=== PATIENT | female | born 1935 | race Caucasian/White ===

== ENCOUNTER → 2017-01-08 | Outpatient (CLI) | payer OTHER, BC | LOC: BMCIMAGING 14:47 | PROVIDERS: ATTEND Nurse Practitioner Adult Health | DX: Z12.31 Encounter for screening mammogram for malignant neoplasm of breast (principal); Z13.820 Encounter for screening for osteoporosis | CPT/HCPCS: G0202 ==

== ENCOUNTER 2017-04-04 20:32 | Inpatient (IN) | payer OTHER, BC ==
[2017-04-04] MEDS ORDERED: IPRATROPIUM/ALBUTEROL 3 ML DEYVIAL IH ONE (21:01)
--- NOTE | 2017-04-04 21:05 | EDPHY ---
H & P Stated Complaint: L shoulder pain, cough, hypoxia HPI/ROS: CHIEF COMPLAINT: Chest pain, shoulder pain, cough HISTORY OF PRESENT ILLNESS: Patient complains of 3 days history of left-sided shoulder and chest pain. This was gradual onset. Constant duration. Moderate to severe. No trauma or injury. No back pain. Associated with cough, shortness of breath or weakness. No headache or dizziness. No syncope. No back pain. No abdominal urinary complaints. Former smoker who wears oxygen at night but not during the day. Time of arrival she was hypoxic on room air at 81%. She was not hypotensive. Worse with exertion and when supine. Minimal improvement rest. No other associated complaints or modifying factors. REVIEW OF SYSTEMS: Ten systems reviewed and are negative unless otherwise noted in the HPI PERTINENT MEDICAL HISTORY: Reviewed EXAMINATION General Appearance: Alert, frail Mildly labored breathing. appears ill. Head: normocephalic, atraumatic Eyes: Pupils equal and round, no conjunctival pallor or injection ENT, Mouth: Mucous membranes moist uvula midline. Neck: Normal inspection, nontender. Kyphotic Respiratory: Coarse rhonchi and mild crackles. Tachypneic with scattered wheezing. No retractions. No paradoxical breathing. No acute distress Cardiovascular: Regular rate and rhythm. No murmur. Gastrointestinal: Abdomen is soft and nontender Back: non-tender, kyphotic. no bony abnormalities Neurological: A&O, nonfocal, GCS 15. Skin: Warm and dry, no rash. No petechiae or purpura Extremities: Nontender, no pedal edema Psychiatric: Mood and affect normal DIFFERENTIAL DIAGNOSES: Including but not limited to sepsis, community-acquired pneumonia, COPD exacerbation, bronchitis, PE, ACS MDM: 9:02 p.m. Left-sided chest and shoulder pain with cough, shortness of breath, hypoxia. Examination is consistent with pneumonia. She does appear ill, thus I did order blood cultures and lactic acid. She is awake, alert and mentating appropriately. She is hemodynamically stable. Patient will require inpatient stay 9:20 p.m. Chest x-ray as interpreted by me reveals a large left-sided pneumonia with possible pleural effusion versus empyema. I have ordered a CT scan of the chest to further delineate and to rule out PE. She does have a leukocytosis. Her hypoxia is stable on 4 L nasal cannula. She does not require BiPAP at this time. 9:30 p.m. case discussed with Dr. Hermosillo. He pointed out the patient's iodine allergy. We will proceed with CT scan without contrast. I re-evaluated her after her breathing treatment. Breath sounds are improving. She remains awake alert and in no acute distress. She is normotensive and not tachycardic. 9:55 p.m. Notified by radiologist Dr. Hermosillo. CT scan reveals left lower lobe and lingula pneumonia. There is an early, thin empyema with loculation 10:15 p.m. I have discussed the case with Dr. Rivera. He will admit the patient and requested a med surge bed on [address]. He informs me that he will discuss the case with Dr. Hermosillo for the possibility of interventional radiology procedure. I discussed that we have started Rocephin and Zithromax and he agrees that this is appropriate at this time. She is admitted in stable condition. 10:20 p.m. Notified by RN of a change in the patient's oxygenation. She informed me that the patient was 88% on 6 L. She was increased to 10 L Oxymizer. She remained 88-90% with good plethysmography noted. Dr. Brown and I both evaluated her. We discussed BiPAP versus non-rebreather. BiPAP was initially decided upon. However at this time, she actually is oxygenating well on 10 L Oxymizer. She is 94%. Continue to monitor closely. 10:44 p.m. I have discussed the case with Dr. Rivera to notify him of the change in her oxygenation status. He agrees that we should change the bed to Step-Down Unit. This has been done. SUPERVISION: Patient was evaluated in conjunction with the supervising physician. Please see their note for details. Source: Patient, Family Exam Limitations: No limitations - Personal History Current Tetanus/Diphtheria Vaccine: Yes Current Tetanus Diphtheria and Acellular Pertussis (TDAP): Yes Tetanus Vaccine Date: 2008 - Medical/Surgical History Hx Asthma: No Hx Chronic Respiratory Disease: No Hx Diabetes: No Hx Cardiac Disease: No Hx Renal Disease: No Hx Cirrhosis: No Hx Alcoholism: Yes Hx HIV/AIDS: No Hx Splenectomy or Spleen Trauma: No Other PMH: Chronic pain, back pain, hypothyroidism, home O2, hx retroperitoneal fibrosis - Social History Smoking Status: Current every day smoker Constitutional: Initial Vital Signs Temperature (C) 98.2 F 04/04/17 20:42 Heart Rate 85 04/04/17 20:42 Respiratory Rate 24 H 04/04/17 20:42 Blood Pressure 105/76 04/04/17 20:42 O2 Sat (%) 81 L 04/04/17 20:42 O2 Delivery Mode Non-Rebreather Mask O2 (L/minute) 6 Allergies/Adverse Reactions: iodine [Iodine] Allergy (Severe, Verified 04/20/16 05:03) Anaphylaxis Iodinated Contrast Media - Oral and [IV Dye, Iodine Containing Contrast ] Allergy (Unknown, Verified 04/20/16 05:03) Home Medications: Medication Instructions Recorded Baclofen [Baclofen 10 mg (*)] 10 mg PO BID PRN 07/13/12 DULoxetine [Cymbalta 60 MG (*)] 60 mg PO DAILY 05/23/14 Levothyroxine [Synthroid 88 mcg 88 mcg PO DAILY06 05/23/14 (*)] Simvastatin [Zocor 10 mg] 10 mg PO DAILY18 05/23/14 Gabapentin [Neurontin 300 MG (*)] 300 mg PO DAILY 04/20/16 fentaNYL [Duragesic 50 MCG Patch 50 mcg TD Q48H 04/20/16 (*)] Acetaminophen [Tylenol 325mg (*)] 650 mg PO Q4 PRN #0 tab 04/23/16 Medical Decision Making - Diagnostics Imaging Results: Imaging Impressions Chest X-Ray 04/04/17 21:00 Impression: Left lower lobe pneumonia. Chest CT 04/04/17 21:20 Impression: 1. Pneumonia left lower lobe and possible early empyema. Atelectasis or early infiltrate lingula. 2. Atelectasis right middle lobe. Diskoid atelectasis or scarring right lung base. 3. Mild dilatation of the descending thoracic aorta 4.2 cm. Recommend follow-up. Results called and discussed with Nemesio Escalante PA-C, at 04/04/2017 22:02. - Data Points Laboratory Results: Laboratory Results 04/04/17 21:00 04/04/17 21:00 04/04/17 04/04/17 04/04/17 21:53 21:00 21:00 WBC RBC Hgb Hct MCV MCH MCHC RDW Plt Count MPV Neut % (Auto) Lymph % (Auto) [place] % (Auto) Eos % (Auto) Baso % (Auto) Nucleat RBC Rel Count Absolute Neuts (auto) Absolute Lymphs (auto) Absolute Monos (auto) Absolute Eos (auto) Absolute Basos (auto) Absolute Nucleated RBC Immature Gran % Immature Gran # PT 16.3 SEC H SEC (12.0-15.0) INR 1.31 H (0.83-1.16) APTT 30.9 SEC SEC (23.0-38.0) VBG Lactic Acid Sodium 142 mEq/L mEq/L (134-144) Potassium 3.2 mEq/L L mEq/L (3.5-5.2) Chloride 105 mEq/L mEq/L (97-110) Carbon Dioxide 26 mEq/l mEq/l (22-31) Anion Gap 11 mEq/L mEq/L (8-16) BUN 14 mg/dL mg/dL (7-23) Creatinine 0.6 mg/dL mg/dL (0.6-1.0) Estimated GFR > 60 Glucose 166 mg/dL H mg/dL (70-100) Calcium 8.2 mg/dL L mg/dL (8.5-10.4) Total Bilirubin 1.0 mg/dL mg/dL (0.1-1.4) Troponin I < 0.012 ng/mL ng/mL (0-0.034) NT-Pro-B Natriuret Pep 1590 pg/mL H pg/mL (0-450) Lipase < 10.0 IU/L L IU/L (23-300) Influenza A & B (PCR) Pending 04/04/17 04/04/17 21:00 21:00 WBC 17.02 10^3/uL H 10^3/uL (3.80-9.50) RBC 4.43 10^6/uL 10^6/uL (4.18-5.33) Hgb 13.2 g/dL g/dL (12.6-16.3) Hct 39.4 % % (38.0-47.0) MCV 88.9 fL fL (81.5-99.8) MCH 29.8 pg pg (27.9-34.1) MCHC 33.5 g/dL g/dL (32.4-36.7) RDW 14.9 % % (11.5-15.2) Plt Count 309 10^3/uL 10^3/uL (150-400) MPV 9.5 fL fL (8.7-11.7) Neut % (Auto) 86.4 % H % (39.3-74.2) Lymph % (Auto) 5.5 % L % (15.0-45.0) Baldwin % (Auto) 7.2 % % (4.5-13.0) Eos % (Auto) 0.2 % L % (0.6-7.6) Baso % (Auto) 0.2 % L % (0.3-1.7) Nucleat RBC Rel Count 0.0 % % (0.0-0.2) Absolute Neuts (auto) 14.69 10^3/uL H 10^3/uL (1.70-6.50) Absolute Lymphs (auto) 0.94 10^3/uL L 10^3/uL (1.00-3.00) Absolute Monos (auto) 1.23 10^3/uL H 10^3/uL (0.30-0.80) Absolute Eos (auto) 0.04 10^3/uL 10^3/uL (0.03-0.40) Absolute Basos (auto) 0.03 10^3/uL 10^3/uL (0.02-0.10) Absolute Nucleated RBC 0.00 10^3/uL 10^3/uL (0-0.01) Immature Gran % 0.5 % % (0.0-1.1) Immature Gran # 0.09 10^3/uL 10^3/uL (0.00-0.10) PT INR APTT VBG Lactic Acid 1.2 mmol/L mmol/L (0.7-2.1) Sodium Potassium Chloride Carbon Dioxide Anion Gap BUN Creatinine Estimated GFR Glucose Calcium Total Bilirubin Troponin I NT-Pro-B Natriuret Pep Lipase Influenza A & B (PCR) Medications Given: Discontinued Medications Albuterol/Ipratropium (Duoneb) 3 ml IH EDNOW ONE Stop: 04/04/17 21:02 Last Admin: 04/04/17 21:15 Dose: 3 ml Ceftriaxone Sodium/Dextrose (Rocephin 1 Gm (Premix)) 50 mls @ 100 mls/hr IV EDNOW ONE PRN Reason: Protocol Stop: 04/04/17 22:00 Last Admin: 04/04/17 22:27 Dose: 50 mls Morphine Sulfate (Morphine) 2 mg IVP EDNOW ONE Stop: 04/04/17 21:02 Last Admin: 04/04/17 22:17 Dose: Not Given Departure - Departure Disposition: Home, Routine, Self-Care Clinical Impression: Community acquired pneumonia, Empyema Sepsis Qualifiers: Sepsis type: sepsis due to unspecified organism Qualified Code(s): A41.9 - Sepsis, unspecified organism Condition: Fair
--- NOTE | 2017-04-04 21:06 | CPEKG ---
Heart Rate: 77 RR Interval: 779 P-R Interval: 184 QRSD Interval: 96 QT Interval: 408 QTC Interval: 462 P [place]: 69 QRS [place]: -46 T Wave [place]: 5 EKG Severity - ABNORMAL ECG - EKG Impression: SINUS RHYTHM EKG Impression: LAD, CONSIDER LEFT ANTERIOR FASCICULAR BLOCK EKG Impression: BORDERLINE T ABNORMALITIES, ANTERIOR LEADS Electronically Signed By: Raz Brown 04-Apr-2017 21:18:06
[2017-04-04 21:09] LABS: % IMMATURE GRANULYOCYTES 0.5 % (0.0-1.1); ABSOLUTE IMMATURE GRANULOCYTES 0.09 10^3/uL (0.00-0.10); ADD DIFF? NO; ADD MORPH? NO; ADD SCAN? NO; ATYPICAL LYMPHOCYTE FLAG 10 (0-99); FRAGMENT RBC FLAG 0 (0-99); HEMATOCRIT 39.4 % (38.0-47.0); HEMOGLOBIN 13.2 g/dL (12.6-16.3); LEFT SHIFT FLG 20 (0-99); LIPEMIA HEMOLYSIS FLAG 80 (0-99); MEAN CELL HEMOGLOBIN 29.8 pg (27.9-34.1); MEAN CELL HEMOGLOBIN CONCENTR. 33.5 g/dL (32.4-36.7); MEAN CELL VOLUME 88.9 fL (81.5-99.8); MEAN PLATELET VOLUME 9.5 fL (8.7-11.7); PLATELET CLUMPS FLAG 0 (0-99); PLATELET COUNT 309 10^3/uL (150-400); RED BLOOD CELL COUNT 4.43 10^6/uL (4.18-5.33); RED CELL DISTRIBUTION WIDTH 14.9 % (11.5-15.2)
[2017-04-04 21:23] LABS: APTT 30.9 SEC (23.0-38.0); INR 1.31 (0.83-1.16); PROTIME(PATIENT) 16.3 SEC (12.0-15.0)
[2017-04-04 21:29] LABS: ANION GAP 11 mEq/L (8-16); CALCIUM 8.2 mg/dL (8.5-10.4); CARBON DIOXIDE 26 mEq/l (22-31); CHLORIDE 105 mEq/L (97-110); CREATININE 0.6 mg/dL (0.6-1.0); GLOMERULAR FILTRATION RATE > 60; GLUCOSE 166 mg/dL (70-100); POTASSIUM 3.2 mEq/L (3.5-5.2); SODIUM 142 mEq/L (134-144)
[2017-04-04] MEDS ORDERED: AZITHROMYCIN IV 500 MG in D5W 250 ML IV ONE (21:31)
[2017-04-04 21:42] LABS: TROPONIN I < 0.012 ng/mL (0-0.034)
[2017-04-04] MEDS ORDERED: fentaNYL 100 MCG/2 ML INJ ONE (22:16)
[2017-04-04] MEDS ORDERED: ONDANSETRON DISINTEGRATING 4 MG TAB PO PRN (22:51)
[2017-04-04] MEDS ORDERED: NICOTINE POLACRILEX 2 MG GUM B PRN (22:51)
[2017-04-04] MEDS ORDERED: ONDANSETRON 4 MG/2 ML VIAL IVP PRN (22:51)
[2017-04-04] MEDS ORDERED: AMPICILLIN/SULBACTAM 3 GM in NS 100 ML IV SCH (22:54)
[2017-04-04] MEDS ORDERED: POTASSIUM Cl (KCl) 40 MEQ in NS 1,000 ML IV SCH (23:00)
[2017-04-05] MEDS: oxyCODONE IR 5 MG TAB PO PRN ×5 (00:35→21:17)
--- NOTE | 2017-04-05 00:50 | PDGENHP ---
History and Physical - Chief Complaint acute chest pain - History of Present Illness primary care provider: Dr. Ameena Sepulveda HPI: 81-year-old female presents with acute chest pain characterized as a sharp pain located in her left chest radiating around her left shoulder and into her ribs with onset of symptoms 3 days ago and associated nonproductive cough as well as shortness of breath. The patient reports that the progression of the symptoms has been gradual becoming constant and escalating to high level of severity. They are exacerbated by deep inspiration, alleviated by shallow breathing. Patient has not been taking any pain medications to alleviate the symptoms at home. Her does report that she has had witnessed aspiration at home, reporting that occasionally she has food go "down the wrong pipe". She has not been drinking alcohol for approximately 1 year and she continues to smoke regularly. She has otherwise been taking all of her home medications. History Information - Allergies/Home Medication List Allergies/Adverse Reactions: iodine [Iodine] Allergy (Severe, Verified 04/20/16 05:03) Anaphylaxis Iodinated Contrast Media - Oral and [IV Dye, Iodine Containing Contrast ] Allergy (Unknown, Verified 04/20/16 05:03) Home Medications: Baclofen [Baclofen 10 mg (*)] 10 mg PO BID PRN 07/13/12 [Last Taken 07/12/12] DULoxetine [Cymbalta 60 MG (*)] 60 mg PO DAILY 05/23/14 [Last Taken 04/18/16] Levothyroxine [Synthroid 88 mcg (*)] 88 mcg PO DAILY06 05/23/14 [Last Taken ] Simvastatin [Zocor 10 mg] 10 mg PO DAILY18 05/23/14 [Last Taken 04/18/16] Gabapentin [Neurontin 300 MG (*)] 300 mg PO DAILY 04/20/16 [Last Taken Unknown] fentaNYL [Duragesic 50 MCG Patch (*)] 50 mcg TD Q48H 04/20/16 [Last Taken ] I have personally reviewed and updated: family history, medical history, social history, surgical history - Past Medical History COPD ( with history of chronic hypoxic respiratory failure but she is currently only using nocturnal oxygen), hyperlipidemia Additional medical history: Chronic aspiration with scarring in the right middle lobe and right lower lobe. Retroperitoneal fibrosis with hydroureter. Hypothyroidism. Pulmonary hypertension - Surgical History Additional surgical history: thyroid surgery. Foot surgery. Ureteral stent - Family History Additional family history: recent sick family contacts, parents are - Social History Smoking Status: Current every day smoker Alcohol Use: Sober (x1 year) Drug Use: None Additional social history: normally independent in her ADLs, lives with , originally from [facility] Review of Systems ROS: 10pt was reviewed & negative except for what was stated in HPI & below Cardiac: Reports: chest pain Respiratory: Reports: cough, shortness of breath Physical Exam Temp Pulse Resp BP Pulse Ox 36.9 C 82 27 H 129/70 H 90 L 04/05/17 00:30 04/05/17 00:30 04/05/17 00:30 04/05/17 00:30 04/05/17 00:30 O2 (L/minute) 10 Constitutional: chronically ill appearing, uncomfortable, No not in pain Eyes: PERRL, anicteric sclera, EOMI Ears, Nose, Mouth, Throat: hearing normal, other ( tacky mucous membranes) Cardiovascular: systolic murmur ( 2/6 systolic murmur at the sternum and 1/6 systolic murmur at the apex), No irregularly irregular, No tachycardia, No edema Respiratory: reduced air movement ( on inspiration bilaterally secondary to poor inspiratory effort), rhonchi ( on inspiration on left), No expiratory wheeze, No bronchial breath sounds Gastrointestinal: normoactive bowel sounds, soft, non-tender abdomen, no palpable masses Neurologic: AAOx3, No weakness ( motor strength 5/5 bilateral lower extremity) Psychiatric: not anxious, flat affect, No agitated Lab Data & Imaging Review 04/04/17 21:00 04/04/17 21:00 WBC 17.02 10^3/uL (3.80-9.50) H 04/04/17 21:00 RBC 4.43 10^6/uL (4.18-5.33) 04/04/17 21:00 Hgb 13.2 g/dL (12.6-16.3) 04/04/17 21:00 Hct 39.4 % (38.0-47.0) 04/04/17 21:00 MCV 88.9 fL (81.5-99.8) 04/04/17 21:00 MCH 29.8 pg (27.9-34.1) 04/04/17 21:00 MCHC 33.5 g/dL (32.4-36.7) 04/04/17 21:00 RDW 14.9 % (11.5-15.2) 04/04/17 21:00 Plt Count 309 10^3/uL (150-400) 04/04/17 21:00 MPV 9.5 fL (8.7-11.7) 04/04/17 21:00 Neut % (Auto) 86.4 % (39.3-74.2) H 04/04/17 21:00 Lymph % (Auto) 5.5 % (15.0-45.0) L 04/04/17 21:00 [place] % (Auto) 7.2 % (4.5-13.0) 04/04/17 21:00 Eos % (Auto) 0.2 % (0.6-7.6) L 04/04/17 21:00 Baso % (Auto) 0.2 % (0.3-1.7) L 04/04/17 21:00 Nucleat RBC Rel Count 0.0 % (0.0-0.2) 04/04/17 21:00 Absolute Neuts (auto) 14.69 10^3/uL (1.70-6.50) H 04/04/17 21:00 Absolute Lymphs (auto) 0.94 10^3/uL (1.00-3.00) L 04/04/17 21:00 Absolute Monos (auto) 1.23 10^3/uL (0.30-0.80) H 04/04/17 21:00 Absolute Eos (auto) 0.04 10^3/uL (0.03-0.40) 04/04/17 21:00 Absolute Basos (auto) 0.03 10^3/uL (0.02-0.10) 04/04/17 21:00 Absolute Nucleated RBC 0.00 10^3/uL (0-0.01) 04/04/17 21:00 Immature Gran % 0.5 % (0.0-1.1) 04/04/17 21:00 Immature Gran # 0.09 10^3/uL (0.00-0.10) 04/04/17 21:00 PT 16.3 SEC (12.0-15.0) H 04/04/17 21:00 INR 1.31 (0.83-1.16) H 04/04/17 21:00 APTT 30.9 SEC (23.0-38.0) 04/04/17 21:00 VBG Lactic Acid 1.2 mmol/L (0.7-2.1) 04/04/17 21:00 Sodium 142 mEq/L (134-144) 04/04/17 21:00 Potassium 3.2 mEq/L (3.5-5.2) L 04/04/17 21:00 Chloride 105 mEq/L (97-110) 04/04/17 21:00 Carbon Dioxide 26 mEq/l (22-31) 04/04/17 21:00 Anion Gap 11 mEq/L (8-16) 04/04/17 21:00 BUN 14 mg/dL (7-23) 04/04/17 21:00 Creatinine 0.6 mg/dL (0.6-1.0) 04/04/17 21:00 Estimated GFR > 60 04/04/17 21:00 Glucose 166 mg/dL (70-100) H 04/04/17 21:00 Calcium 8.2 mg/dL (8.5-10.4) L 04/04/17 21:00 Total Bilirubin 1.0 mg/dL (0.1-1.4) 04/04/17 21:00 Troponin I < 0.012 ng/mL (0-0.034) 04/04/17 21:00 NT-Pro-B Natriuret Pep 1590 pg/mL (0-450) H 04/04/17 21:00 Lipase < 10.0 IU/L (23-300) L 04/04/17 21:00 Influenza A & B (PCR) NEGATIVE FOR FLU (NEGATIVE) 04/04/17 21:53 Visualized and Interpreted imaging results: Yes Interpretation: chest CT demonstrating dense left lower lobe infiltrate with small loculated empyema as well as collapsed right middle lobe, scarring in the right lower lobe Assessment & Plan Assessment: 81-year-old female presenting with sepsis in the setting suspected aspiration pneumonia and empyema complicated by acute on chronic hypoxic respiratory failure Plan: 1. Sepsis. Acute, new problem this provider, further workup indicated. Evidenced by sepsis-2/icds-2 criteria including tachypnea, leukocytosis, clear source of infection, autonomic dysregulation in the setting of infection including acute on chronic hypoxic respiratory failure - blood culture sent -sputum culture sent - continuing IV fluids -broadening empiric IV antibiotics -continue to monitor CBC and monitor for fever 2. Hypoxic respiratory failure. Acute on chronic, evidenced by an SpO2 of 88% ( PaO2 55) on 10 L high-flow oxygen, resulting in a P:F ratio of 108 which is by WHO criteria severe acute lung injury, as well as objective tachypnea and visibly labored breathing on presentation with symptomatic shortness of breath, secondary to dense pneumonia and empyema -patient placed on Oxymizer, currently on 13 L high-flow oxygen - admit to step-down unit, monitor respiratory status closely and intubate if necessary -provide scheduled duo nebs given underlying COPD 3. Suspected aspiration pneumonia and empyema. Located in left lower lobe with loculated areas of small empyema, aspiration by history provided by as well as chart review -reviewed outside records including 04/23/[address] 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 Zhu this evening of patient's presentation so that he can evaluate for potential decortication versus aspiration for diagnostic sample -patient is not clinically decompensated at this moment and does not require emergent decortication but her clinical status worsens, we will need to consider surgery for source control, have discussed with patient and her -as needed oxycodone for pain control as most likely cause of her left-sided chest pain is the infiltrate an empyema 4. Atelectasis. Present on chest imaging, get incentive spirometer 5. COPD. Chronic, no evidence of acute exacerbation, placed on scheduled nebs but no indication for steroids Diet. Regular diet, NPO after midnight in case surgery is indicated Prophylaxis. High risk patient, hold pharm given possible surgery, SCDs Code. full, is MPOA Disposition. Anticipated discharge uncertain this time, anticipated length stay is greater than 48 hours warranting inpatient admission status for sepsis in the setting of high risk comorbid acute on chronic hypoxic respiratory failure as well as suspected aspiration pneumonia and empyema. Patient is currently critically ill with high risk of morbidity and mortality, admitted to the step-down unit given her respiratory failure. I spent 45 minutes of critical care time admitting this patient, addressing the issues as outlined above, at bedside with patient and her .
[2017-04-05] MEDS: AMPICILLIN/SULBACTAM 3 GM in NS 100 ML IV SCH ×5 (01:15→23:46)
[2017-04-05] MEDS: guaiFENesin 600 MG TAB.ER PO SCH ×3 (01:18→21:12)
[2017-04-05 05:36] LABS: % IMMATURE GRANULYOCYTES 0.5 % (0.0-1.1); ABSOLUTE IMMATURE GRANULOCYTES 0.07 10^3/uL (0.00-0.10); ADD DIFF? NO; ADD MORPH? NO; ADD SCAN? NO; ATYPICAL LYMPHOCYTE FLAG 0 (0-99); FRAGMENT RBC FLAG 0 (0-99); HEMATOCRIT 34.8 % (38.0-47.0); HEMOGLOBIN 11.6 g/dL (12.6-16.3); LEFT SHIFT FLG 10 (0-99); LIPEMIA HEMOLYSIS FLAG 80 (0-99); MEAN CELL HEMOGLOBIN 29.7 pg (27.9-34.1); MEAN CELL HEMOGLOBIN CONCENTR. 33.3 g/dL (32.4-36.7); MEAN PLATELET VOLUME 9.9 fL (8.7-11.7); PLATELET CLUMPS FLAG 10 (0-99); PLATELET COUNT 262 10^3/uL (150-400); RED BLOOD CELL COUNT 3.91 10^6/uL (4.18-5.33); RED CELL DISTRIBUTION WIDTH 15.2 % (11.5-15.2)
[2017-04-05 05:53] LABS: ALANINE AMINOTRANSFERASE 20 IU/L (9-52); ALBUMIN 2.7 g/dL (3.5-5.0); ALKALINE PHOSPHATASE 71 IU/L (38-126); ANION GAP 8 mEq/L (8-16); ASPARTATE AMINOTRANSFERASE 13 IU/L (14-46); BILIRUBIN,TOTAL 0.8 mg/dL (0.1-1.4); CALCIUM 7.3 mg/dL (8.5-10.4); CARBON DIOXIDE 27 mEq/l (22-31); CHLORIDE 108 mEq/L (97-110); CREATININE 0.5 mg/dL (0.6-1.0); GLOMERULAR FILTRATION RATE > 60; GLUCOSE 97 mg/dL (70-100); POTASSIUM 3.6 mEq/L (3.5-5.2); SODIUM 143 mEq/L (134-144); TOTAL PROTEIN 5.4 g/dL (6.3-8.2)
[2017-04-05] MEDS: IPRATROPIUM/ALBUTEROL 3 ML DEYVIAL IH SCH ×4 (05:57→20:39)
[2017-04-05] MEDS: AZITHROMYCIN IV 500 MG in D5W 250 ML IV SCH (08:22)
[2017-04-05] MEDS: ACETAMINOPHEN 325 MG TAB PO PRN ×2 (08:27→15:53)
[2017-04-05] MEDS: NICOTINE 21 MG/24 HR PATCH TD SCH ×2 (08:27→08:34)
--- NOTE | 2017-04-05 08:50 | HOSPPROG ---
Hospitalist Progress Note Assessment/Plan: #Sepsis: due to pulmonary source with aspiration, empyema. Chest US shows small left loculated effusion. I have discussed case with Dr. Walker and Dr. Mccallum and want to approach with medical management initially. White count trending down. Cont Unasyn #Leukocytosis: improved on abx. cultures pending #Acute on chronic hypoxemic resp failure: due to PNA. Still smoking #Tobacco abuse: counseled on cessation #Hypokalemia: repleted #COPD: on oxygen at night #Hypothyroidism: LT4 #HLD: statin #Chest pain: pleuritic. Trial Toradol #Diet: regular #DVT ppx: Lovenox #Disp: warrants inpatient admission with sepsis, IV abx Subjective: pain in back Objective: Vital Signs Temp Pulse Resp BP Pulse Ox 37.1 C 78 22 H 145/75 H 90 L 04/05/17 08:14 04/05/17 08:14 04/05/17 08:14 04/05/17 08:14 04/05/17 08:14 Laboratory Results 04/05/17 05:15 04/05/17 05:15 04/04/17 04/05/17 04/06/17 05:59 05:59 05:59 Intake Total 1781 Output Total 75 Balance 1706 PT 16.3 SEC (12.0-15.0) H 04/04/17 21:00 INR 1.31 (0.83-1.16) H 04/04/17 21:00 - Physical Exam Constitutional: other (thin, diaphoretic) Eyes: PERRL Ears, Nose, Mouth, Throat: dry mucous membranes Cardiovascular: regular rate and rhythym, no murmur, rub, or gallop Respiratory: no respiratory distress, other (decreased BS LL base) Gastrointestinal: normoactive bowel sounds, soft, non-tender abdomen Skin: warm Musculoskeletal: full muscle strength Neurologic: AAOx3, CN II-XII Intact Psychiatric: interacting appropriately ICD10 Worksheet Patient Problems: Problems Problem Status Onset Community acquired pneumonia Acute Empyema Acute Sepsis Acute Chronic obstructive lung disease Active Clostridium difficile infection Active 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
--- NOTE | 2017-04-05 09:15 | SOAPPROG ---
SOAP Progress Note Assessment/Plan: Assessment: 81 F WITH LLL PNA AND LOTS OF PAIN/ CT SUGGESTS EARLY EMPYEMA LOW GRADE TEMP/ DECREASED BS LLL/ ABD SOFT/ COR RR WBC 15K TOO EARLY TO DEFINITIVELY SAY ABOUT EMPYEMA Plan:WILL FOLLOW/ CONSIDER VATS IF WORSENING/ CONSIDER CHEST US 04/05/17 09:12 Objective: Vital Signs Temp Pulse Resp BP Pulse Ox 37.1 C 78 22 H 145/75 H 90 L 04/05/17 08:14 04/05/17 08:14 04/05/17 08:14 04/05/17 08:14 04/05/17 08:14 Laboratory Results 04/05/17 05:15 04/05/17 05:15 04/04/17 04/05/17 04/06/17 05:59 05:59 05:59 Intake Total 1781 Output Total 75 Balance 1706 PT 16.3 SEC (12.0-15.0) H 04/04/17 21:00 INR 1.31 (0.83-1.16) H 04/04/17 21:00 ICD10 Worksheet Patient Problems: Problems Problem Status Onset Community acquired pneumonia Acute Empyema Acute Sepsis Acute Chronic obstructive lung disease Active Clostridium difficile infection Active 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
[2017-04-05] MEDS ORDERED: BACLOFEN 10 MG TAB PO PRN (11:24)
[2017-04-05] MEDS: fentaNYL 50 MCG PATCH TD SCH (12:16)
[2017-04-05] MEDS: LEVOTHYROXINE 112 MCG TAB PO SCH (12:16)
[2017-04-05] MEDS: DULoxetine 60 MG CAP PO SCH (12:16)
[2017-04-05] MEDS: KETOROLAC 15 MG/1 ML SDV IVP SCH ×3 (12:16→23:45)
[2017-04-05] MEDS: NS 1,000 ML IV SCH (12:17)
[2017-04-05] MEDS: PRAVASTATIN SODIUM 20 MG TAB PO SCH (17:56)
[2017-04-05] MEDS ORDERED: NON-FORMULARY NEW DRUG (Simvastatin [Zocor 10 Mg] 10 MG) PO SCH (18:00)
[2017-04-05] MEDS: GABAPENTIN 400 MG CAP PO SCH (21:09)
[2017-04-06] MEDS: NS 1,000 ML IV SCH ×2 (04:09→17:11)
[2017-04-06] MEDS: oxyCODONE IR 5 MG TAB PO PRN ×3 (04:10→21:15)
--- NOTE | 2017-04-06 05:06 | GCON ---
[f rep st] CONSULTATION The patient is a 81-year-old female who has been in the hospital for 3 days for pneumonia. I was co nsulted for possible early empyema development on the left side. She has cloudy, hazy changes on th at side on chest x-ray, as well as on CT scan. Chest ultrasound reveals a small loculated pocket. She has had low-grade temps and complains of a significant amount of pain with breathing on her left chest. ALLERGIES: Iodine and contrast dye. MEDICATIONS: Include Neurontin, Zocor, Synthroid, fentanyl patch, baclofen and Cymbalta. PAST MEDICAL HISTORY: Reveals that she is a daily smoker, has some history of chronic aspiration an d chronic pain syndrome with hyperlipidemia, and chronic hypoxic respiratory failure, has hypothyroi dism and pulmonary hypertension. PAST SURGICAL HISTORY: Includes a thyroidectomy, some bunion surgery and a ureteral stent. REVIEW OF SYSTEMS: Reveals no other major illnesses other than those listed above on a full complet e review of systems. PHYSICAL EXAMINATION: GENERAL: Reveals an ill-appearing, 81-year-old female who is uncomfortable. HEAD AND NECK: Exam reveals no icterus. No significant adenopathy, and no oral lesions. CARDIAC: Reveals a systolic murmur, an irregular rhythm. CHEST: Decreased breath sounds in the left base with some crackles. No wheezing. ABDOMEN: Soft and nontender with slight distention. NEUROLOGIC: Exam is symmetrical and physiologic. LABORATORY DATA: Reveals a white count to be elevated at 15,000. IMPRESSION: Chronic obstructive pulmonary disease with possible left lower lobe pneumonia and possi ble early left empyema. RECOMMENDATIONS: Would be close observation, VATS drainage if her effusion and difficulties worsen. I will follow her with you. /[id number]/MODL
[2017-04-06] MEDS: AMPICILLIN/SULBACTAM 3 GM in NS 100 ML IV SCH ×3 (05:41→18:23)
[2017-04-06] MEDS: LEVOTHYROXINE 112 MCG TAB PO SCH (05:41)
[2017-04-06] MEDS: KETOROLAC 15 MG/1 ML SDV IVP SCH ×3 (05:41→18:24)
[2017-04-06] MEDS: IPRATROPIUM/ALBUTEROL 3 ML DEYVIAL IH SCH ×4 (06:18→20:58)
[2017-04-06 06:25] LABS: % IMMATURE GRANULYOCYTES 0.4 % (0.0-1.1); ABSOLUTE IMMATURE GRANULOCYTES 0.07 10^3/uL (0.00-0.10); ADD DIFF? NO; ADD MORPH? NO; ADD SCAN? NO; ATYPICAL LYMPHOCYTE FLAG 0 (0-99); FRAGMENT RBC FLAG 0 (0-99); HEMATOCRIT 37.6 % (38.0-47.0); HEMOGLOBIN 12.4 g/dL (12.6-16.3); LEFT SHIFT FLG 10 (0-99); LIPEMIA HEMOLYSIS FLAG 80 (0-99); MEAN CELL HEMOGLOBIN 29.8 pg (27.9-34.1); MEAN CELL VOLUME 90.4 fL (81.5-99.8); MEAN PLATELET VOLUME 10.4 fL (8.7-11.7); PLATELET CLUMPS FLAG 0 (0-99); PLATELET COUNT 287 10^3/uL (150-400); RED BLOOD CELL COUNT 4.16 10^6/uL (4.18-5.33); RED CELL DISTRIBUTION WIDTH 15.6 % (11.5-15.2)
--- NOTE | 2017-04-06 07:01 | GCON ---
[f rep st] CONSULTATION PULMONARY CONSULTATION DATE OF CONSULTATION: 04/05/2017 HISTORY OF PRESENT ILLNESS: This patient is a 81-year-old female, who was admitted yesterday with c hest pain, cough, shortness of breath, and chest x-ray consistent with pneumonia. She also had locu lated pleural effusions that were thought to be possible empyema and has been treated with antibioti cs overnight. She has also developed some tremor which has been chronic for her, thought to be rela prince to lithium, complicated by acute kidney injury. She also got IV fluids overnight. Today, she feels much better though she still has an oxygen requirement and some tremor with ongoing issues of chest pain. REVIEW OF SYSTEMS: Negative. PAST MEDICAL HISTORY: Includes: 1. COPD with hypoxia. 2. Hyperlipidemia. 3. Chronic aspiration in the right lung. 4. Retroperitoneal fibrosis with hydroureter. 5. Hypothyroidism. 6. Pulmonary hypertension by report. PAST SURGICAL HISTORY: Includes thyroid surgery, foot surgery, and ureteral stents in the past. SOCIAL HISTORY: She is a current smoker. Previous alcohol. No IV drug use. Currently living inde pendently. FAMILY HISTORY: Includes no significant diseases. CURRENT MEDICATIONS: Include DuoNeb, Unasyn, baclofen, Klonopin, Cymbalta, Duragesic, Neurontin, Sy nthroid, morphine, Zofran, normal saline and azithromycin. PHYSICAL EXAMINATION: VITAL SIGNS: She is currently afebrile. Her blood pressure is 132/78 off pr essors which she did require overnight. Heart rate of 80, respirations of 18, oxygen saturation 91% on 5 L. GENERAL: She is pleasant, awake and oriented x3, with no respiratory distress. HEENT: P upils are equally round, reactive to light. Nonicteric and noninjected. Mucous membranes are moist without erythema or exudate. RESPIRATORY: Breath sounds were somewhat coarse but had good air exc hange without obvious wheezing. HEART: Regular rate and rhythm without murmurs, rubs, gallops. AB DOMEN: Soft, nontender, nondistended without hepatosplenomegaly. EXTREMITIES: Show no clubbing, cy anosis, or edema. NEUROLOGIC: Nonfocal, though she did have an intention tremor that was quite mar ked but her cranial nerves and deep tendon reflexes were normal. Her white count was 17 yesterday, 15 today. Hematocrit 34, platelets of 262. Basic metabolic panel was unremarkable. Influenza was negative. Urine and strep antigen testing was pending at this yasmany e. Her chest CT scan showed infiltrates in the left lung with loculated small pleural effusions. ASSESSMENT/PLAN: 1. Pneumonia with septic shock. She has responded well to IV fluids and now is off pressors. She still has an oxygen requirement, is of no surprise, and we will titrate that as needed. Her antibio tics are little bit confusing to me at this time but a cephalosporin plus a macrolide would be appro priate for severe community-acquired pneumonia versus a quinolone monotherapy Unasyn is not unreason able as a replacement for a cephalosporin. Cultures are negative to date and we may not grow anythi ng but we will continue to follow those for now. 2. Possible empyema. She does have loculated effusion there and I suspect this is a complicated pa rapneumonic effusion. Ultrasound shows that it is potentially tappable and she has been evaluated b y Dr. Walker as well. I think she is showing signs of clinical improvement such that 1 chest tube is not likely to provide significant benefit and a VATS would be fairly aggressive in what I believe t o be a complicated effusion. If she continues to improve then I do not think any further interventi on is required. If she does not, I would probably move more towards an aggressive approach such as a VATS rather than a simple chest tube drainage given the complexities of her pleural space. Dr. Sanjuanita alcala in agreement with this. 3. Acute kidney injury. This is likely due to her previous hypotension, possibly complicated by so me hypoxemia. She appears to be better with a creatinine drop from 3.5 to 2.5 using simple IV fluid s. We should continue to follow this for now. 4. Tremor. This is thought to be due to her previous medications. They are being adjusted and eff orts are being made to discuss this with her outpatient psychiatrist to make sure that these are jackson ated appropriately. /[id number]/MODL
[2017-04-06] MEDS: AZITHROMYCIN IV 500 MG in D5W 250 ML IV SCH (07:33)
[2017-04-06 08:29] LABS: ANION GAP 8 mEq/L (8-16); CALCIUM 7.8 mg/dL (8.5-10.4); CARBON DIOXIDE 24 mEq/l (22-31); CHLORIDE 110 mEq/L (97-110); CREATININE 0.5 mg/dL (0.6-1.0); GLOMERULAR FILTRATION RATE > 60; GLUCOSE 99 mg/dL (70-100); POTASSIUM 4.1 mEq/L (3.5-5.2); SODIUM 142 mEq/L (134-144)
[2017-04-06] MEDS: DULoxetine 60 MG CAP PO SCH (09:29)
[2017-04-06] MEDS: guaiFENesin 600 MG TAB.ER PO SCH ×2 (09:29→21:15)
[2017-04-06] MEDS: NICOTINE 21 MG/24 HR PATCH TD SCH (09:30)
[2017-04-06] MEDS: ACETAMINOPHEN 325 MG TAB PO PRN (10:07)
--- NOTE | 2017-04-06 13:15 | PDINTPN ---
Counters[employer] Progress Note Assessment/Plan: Assessment/plan: 81 F admitted 04/04 with cough, SOB and PNA. CT also showed small but loculated pleural effusion. She has been treated conservatively with abx ned so far. H She also complained of pleuritic CP on admission. * CAP-she feels better today with less pain using Toradol. Her WBC is about the same. Dr. Walker is aware and agreed that VATS was a bit aggressive. Given no change in WBC, reasonable to tap what fluid may be there, but even a chest tube seems unlikely. If her wbc persists, may change abx or get formal ID consult. * Objective: Vital Signs Temp Pulse Resp BP Pulse Ox 36.6 C 80 14 158/83 H 97 04/06/17 12:25 04/06/17 13:00 04/06/17 13:00 04/06/17 13:00 04/06/17 13:00 Microbiology 04/05/17 13:40 - Final Sputum, Expectorated Laboratory Results 04/06/17 05:25 04/06/17 05:25 04/05/17 04/06/17 04/07/17 05:59 05:59 05:59 Intake Total 1781 3279 Output Total 75 1150 100 Balance 1706 2129 -100 PT 16.3 SEC (12.0-15.0) H 04/04/17 21:00 INR 1.31 (0.83-1.16) H 04/04/17 21:00 Physical Exam - Physical Exam General Appearance: WD/WN, alert, no apparent distress EENT: PERRL/EOMI Neck: supple Respiratory: decreased breath sounds, rales Cardiac/Chest: regular rate, rhythm, No edema Abdomen: non-tender, soft, No distended Skin: normal color, warm/dry Lymphatic: no adenopathy Extremities: non-tender, No pedal edema Neuro/Psych: alert, normal mood/affect, oriented x 3 ICD10 Worksheet Patient Problems: Problems Problem Status Onset Community acquired pneumonia Acute Empyema Acute Sepsis Acute Chronic obstructive lung disease Active Clostridium difficile infection Active 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
--- NOTE | 2017-04-06 13:53 | SOAPPROG ---
SOAP Progress Note Assessment/Plan: Assessment: 81 F WITH LLL PNA AND LOTS OF PAIN/ CT SUGGESTS EARLY EMPYEMA LOW GRADE TEMP/ DECREASED BS LLL/ ABD SOFT/ COR RR WBC 15K TOO EARLY TO DEFINITIVELY SAY ABOUT EMPYEMA Plan:WILL FOLLOW/ CONSIDER VATS IF WORSENING/ CONSIDER CHEST US 04/05/17 09:12 04/06/17 13:51 AFEBRILE AND MORE COMFORTABLE BUT CXR LOOKING WORSE/ WILL LIKELY NEED VATS/ WILL DISCUSS WITH PULMONARY Objective: Vital Signs Temp Pulse Resp BP Pulse Ox 36.6 C 80 14 158/83 H 97 04/06/17 12:25 04/06/17 13:00 04/06/17 13:00 04/06/17 13:00 04/06/17 13:00 Microbiology 04/05/17 13:40 - Final Sputum, Expectorated Laboratory Results 04/06/17 05:25 04/06/17 05:25 04/05/17 04/06/17 04/07/17 05:59 05:59 05:59 Intake Total 1781 3279 Output Total 75 1150 100 Balance 1706 2129 -100 PT 16.3 SEC (12.0-15.0) H 04/04/17 21:00 INR 1.31 (0.83-1.16) H 04/04/17 21:00 ICD10 Worksheet Patient Problems: Problems Problem Status Onset Community acquired pneumonia Acute Empyema Acute Sepsis Acute Chronic obstructive lung disease Active Clostridium difficile infection Active 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
--- NOTE | 2017-04-06 16:04 | HOSPPROG ---
Hospitalist Progress Note Assessment/Plan: #Sepsis: due to pulmonary source with aspiration. Chest US shows small left lung loculated effusion. Will have IR try to drain to avoid more invasive procedures. White count trending down. Cont Unasyn #Leukocytosis: has not improved since yesterday. Plan as above #Acute on chronic hypoxemic resp failure: due to PNA. Still smoking #Tobacco abuse: counseled on cessation #Hypokalemia: repleted #COPD: on oxygen at night #Hypothyroidism: LT4 #HLD: statin #Chest pain: pleuritic. Trial Toradol #Diet: regular #DVT ppx: Lovenox #Disp: warrants inpatient admission with sepsis, IV abx Subjective: still very weak Objective: Vital Signs Temp Pulse Resp BP Pulse Ox 36.6 C 80 14 158/83 H 97 04/06/17 12:25 04/06/17 13:00 04/06/17 13:00 04/06/17 13:00 04/06/17 13:00 Microbiology 04/05/17 13:40 - Final Sputum, Expectorated Laboratory Results 04/06/17 05:25 04/06/17 05:25 04/05/17 04/06/17 04/07/17 05:59 05:59 05:59 Intake Total 1781 3279 Output Total 75 1150 500 Balance 1706 2129 -500 PT 16.3 SEC (12.0-15.0) H 04/04/17 21:00 INR 1.31 (0.83-1.16) H 04/04/17 21:00 - Physical Exam Constitutional: other (thin) Eyes: PERRL Ears, Nose, Mouth, Throat: moist mucous membranes Cardiovascular: regular rate and rhythym, no murmur, rub, or gallop Respiratory: reduced air movement (decreased BS left base, crackles right base) Gastrointestinal: normoactive bowel sounds, soft, non-tender abdomen Genitourinary: no bladder fullness Skin: warm Musculoskeletal: generalized weakness Neurologic: AAOx3 Psychiatric: interacting appropriately ICD10 Worksheet Patient Problems: Problems Problem Status Onset Community acquired pneumonia Acute Empyema Acute Sepsis Acute Chronic obstructive lung disease Active Clostridium difficile infection Active 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
[2017-04-06] MEDS ORDERED: NA BICARBONATE 50 MEQ/50 ML VIAL ONE (17:12)
[2017-04-06] MEDS: PRAVASTATIN SODIUM 20 MG TAB PO SCH (18:24)
[2017-04-06 19:12] LABS: LD, PLEURAL FLUID 2940 IU/L
[2017-04-06] MEDS: GABAPENTIN 400 MG CAP PO SCH (21:15)
[2017-04-07] MEDS: AMPICILLIN/SULBACTAM 3 GM in NS 100 ML IV SCH ×4 (01:12→18:51)
[2017-04-07] MEDS: KETOROLAC 15 MG/1 ML SDV IVP SCH ×4 (01:12→18:50)
[2017-04-07] MEDS: IPRATROPIUM/ALBUTEROL 3 ML DEYVIAL IH SCH ×4 (01:29→20:54)
[2017-04-07] MEDS: LEVOTHYROXINE 112 MCG TAB PO SCH (05:06)
[2017-04-07 05:53] LABS: % IMMATURE GRANULYOCYTES 0.5 % (0.0-1.1); ABSOLUTE IMMATURE GRANULOCYTES 0.06 10^3/uL (0.00-0.10); ADD DIFF? NO; ADD MORPH? NO; ADD SCAN? NO; ATYPICAL LYMPHOCYTE FLAG 0 (0-99); FRAGMENT RBC FLAG 0 (0-99); HEMOGLOBIN 11.2 g/dL (12.6-16.3); LEFT SHIFT FLG 30 (0-99); LIPEMIA HEMOLYSIS FLAG 80 (0-99); MEAN CELL HEMOGLOBIN 29.1 pg (27.9-34.1); MEAN CELL HEMOGLOBIN CONCENTR. 32.9 g/dL (32.4-36.7); MEAN CELL VOLUME 88.3 fL (81.5-99.8); PLATELET CLUMPS FLAG 30 (0-99); PLATELET COUNT 250 10^3/uL (150-400); RED BLOOD CELL COUNT 3.85 10^6/uL (4.18-5.33); RED CELL DISTRIBUTION WIDTH 15.3 % (11.5-15.2)
[2017-04-07 05:59] LABS: ANION GAP 8 mEq/L (8-16); CALCIUM 7.3 mg/dL (8.5-10.4); CARBON DIOXIDE 25 mEq/l (22-31); CHLORIDE 107 mEq/L (97-110); CREATININE 0.5 mg/dL (0.6-1.0); GLOMERULAR FILTRATION RATE > 60; GLUCOSE 76 mg/dL (70-100); LACTATE DEHYDROGENASE 331 IU/L (313-618); POTASSIUM 3.7 mEq/L (3.5-5.2); SODIUM 140 mEq/L (134-144)
[2017-04-07] MEDS: AZITHROMYCIN IV 500 MG in D5W 250 ML IV SCH (08:52)
[2017-04-07] MEDS: guaiFENesin 600 MG TAB.ER PO SCH ×2 (08:52→20:02)
[2017-04-07] MEDS: DULoxetine 60 MG CAP PO SCH (08:52)
[2017-04-07] MEDS: NICOTINE 21 MG/24 HR PATCH TD SCH (09:26)
--- NOTE | 2017-04-07 14:53 | PDINTPN ---
[employer] Progress Note Assessment/Plan: Assessment/plan: 81 F admitted 04/04 with cough, SOB and PNA. CT also showed small but loculated pleural effusion. She has been treated conservatively with abx ned so far. H She also complained of pleuritic CP on admission. * CAP- Improving with decrease in WBC on Unasyn. O2 requirement about the same and she complains of minimal SOB and improving cough. No hemoptysis * Empyema- Pleural fluid consistent with empyema and repeat CXR actually looks worse. She remains reluctant to have VATS but woud consider it if necessary. Will check non-contrast CT in AM to evaluate as well as WBC, but I suspect we are headed for VATS. * 04/07/17 14:50 Objective: Vital Signs Temp Pulse Resp BP Pulse Ox 36.9 C 81 22 H 133/72 H 91 L 04/07/17 12:00 04/07/17 12:00 04/07/17 12:00 04/07/17 12:00 04/07/17 12:00 Microbiology 04/06/17 18:18 Gram Stain - Final Thoracic Fluid - Aspirate 04/05/17 13:40 - Final Sputum, Expectorated Laboratory Results 04/07/17 05:10 04/07/17 05:10 04/06/17 04/07/17 04/08/17 05:59 05:59 05:59 Intake Total 3279 2387 Output Total 1150 750 Balance 2129 1637 PT 16.3 SEC (12.0-15.0) H 04/04/17 21:00 INR 1.31 (0.83-1.16) H 04/04/17 21:00 Physical Exam - Physical Exam General Appearance: WD/WN, alert, no apparent distress EENT: PERRL/EOMI Neck: supple Respiratory: crackles, No respiratory distress Cardiac/Chest: regular rate, rhythm, No edema Abdomen: non-tender, soft, No distended Skin: normal color, warm/dry Lymphatic: no adenopathy Extremities: No pedal edema Neuro/Psych: alert, normal mood/affect, oriented x 3 ICD10 Worksheet Patient Problems: Problems Problem Status Onset Community acquired pneumonia Acute Empyema Acute Sepsis Acute Chronic obstructive lung disease Active Clostridium difficile infection Active 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
[2017-04-07] MEDS: fentaNYL 50 MCG PATCH TD SCH (14:56)
--- NOTE | 2017-04-07 15:24 | HOSPPROG ---
Hospitalist Progress Note Assessment/Plan: #Sepsis: resolved. Due to empyema. Multiple pockets, one IR-drained 04/06. WBC improves on Unasyn. CT in morning. Will likely need VATs #Leukocytosis: improved today.Plan as above #Acute on chronic hypoxemic resp failure: due to PNA. Still smoking #Tobacco abuse: counseled on cessation #Hypokalemia: repleted #COPD: on oxygen at night #Hypothyroidism: LT4 #HLD: statin #Chest pain: pleuritic. Trial Toradol #Diet: regular #DVT ppx: Lovenox #Disp: warrants inpatient admission with sepsis, IV abx Subjective: no acute events. Anxious Objective: Vital Signs Temp Pulse Resp BP Pulse Ox 36.9 C 81 22 H 133/72 H 91 L 04/07/17 12:00 04/07/17 12:00 04/07/17 12:00 04/07/17 12:00 04/07/17 12:00 Microbiology 04/06/17 18:18 Gram Stain - Final Thoracic Fluid - Aspirate 04/05/17 13:40 - Final Sputum, Expectorated Laboratory Results 04/07/17 05:10 04/07/17 05:10 04/06/17 04/07/17 04/08/17 05:59 05:59 05:59 Intake Total 3279 2387 Output Total 1150 750 Balance 2129 1637 PT 16.3 SEC (12.0-15.0) H 04/04/17 21:00 INR 1.31 (0.83-1.16) H 04/04/17 21:00 - Physical Exam Constitutional: no apparent distress, cachectic Eyes: PERRL Ears, Nose, Mouth, Throat: moist mucous membranes Cardiovascular: regular rate and rhythym, no murmur, rub, or gallop Respiratory: no respiratory distress, other (decreased BS left lung base) Gastrointestinal: normoactive bowel sounds, soft, non-tender abdomen Genitourinary: no bladder fullness Skin: warm Musculoskeletal: full muscle strength Neurologic: AAOx3 Psychiatric: interacting appropriately, anxious ICD10 Worksheet Patient Problems: Problems Problem Status Onset Community acquired pneumonia Acute Empyema Acute Sepsis Acute Chronic obstructive lung disease Active Clostridium difficile infection Active 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
[2017-04-07] MEDS: NS 1,000 ML IV SCH (16:20)
[2017-04-07] MEDS: PRAVASTATIN SODIUM 20 MG TAB PO SCH (18:51)
[2017-04-07] MEDS: oxyCODONE IR 5 MG TAB PO PRN (20:02)
[2017-04-07] MEDS: GABAPENTIN 400 MG CAP PO SCH (20:02)
[2017-04-07] MEDS: FLUTICASONE HFA 220 MCG MDI IH SCH ×2 (20:54→22:01)
[2017-04-08] MEDS: AMPICILLIN/SULBACTAM 3 GM in NS 100 ML IV SCH ×4 (00:20→19:38)
[2017-04-08] MEDS: KETOROLAC 15 MG/1 ML SDV IVP SCH ×4 (00:21→19:37)
[2017-04-08 04:26] LABS: HEMATOCRIT 37.2 % (38.0-47.0); HEMOGLOBIN 12.5 g/dL (12.6-16.3); MEAN CELL HEMOGLOBIN 30.1 pg (27.9-34.1); MEAN CELL HEMOGLOBIN CONCENTR. 33.6 g/dL (32.4-36.7); MEAN CELL VOLUME 89.6 fL (81.5-99.8); RED BLOOD CELL COUNT 4.15 10^6/uL (4.18-5.33); RED CELL DISTRIBUTION WIDTH 15.1 % (11.5-15.2)
[2017-04-08 04:37] LABS: ANION GAP 9 mEq/L (8-16); CALCIUM 7.7 mg/dL (8.5-10.4); CARBON DIOXIDE 27 mEq/l (22-31); CHLORIDE 104 mEq/L (97-110); CREATININE 0.5 mg/dL (0.6-1.0); GLOMERULAR FILTRATION RATE > 60; GLUCOSE 78 mg/dL (70-100); POTASSIUM 3.6 mEq/L (3.5-5.2); SODIUM 140 mEq/L (134-144)
[2017-04-08] MEDS: IPRATROPIUM/ALBUTEROL 3 ML DEYVIAL IH SCH ×4 (05:15→21:21)
[2017-04-08] MEDS: LEVOTHYROXINE 112 MCG TAB PO SCH (05:37)
[2017-04-08] MEDS: NS 1,000 ML IV SCH (05:38)
--- NOTE | 2017-04-08 08:54 | SOAPPROG ---
SOAP Progress Note Assessment/Plan: Assessment: 81 F WITH LLL PNA AND LOTS OF PAIN/ CT SUGGESTS EARLY EMPYEMA LOW GRADE TEMP/ DECREASED BS LLL/ ABD SOFT/ COR RR WBC 15K TOO EARLY TO DEFINITIVELY SAY ABOUT EMPYEMA Plan:WILL FOLLOW/ CONSIDER VATS IF WORSENING/ CONSIDER CHEST US 04/05/17 09:12 04/06/17 13:51 AFEBRILE AND MORE COMFORTABLE BUT CXR LOOKING WORSE/ WILL LIKELY NEED VATS/ WILL DISCUSS WITH PULMONARY 04/07/17 08:51 AFEBRILE/ CXR STILL WITH LLL ATELECTASIS AND PLEURAL EFFUSION/ PAIN DECREASED/ IMPROVING BUT STILL MAY NEED VATS TO PREVENT ENTRAPMENT 04/08/17 08:52 REMAINS AFEBRILE BUT MORE SOB/ BS DECREASED ON THE LEFT BASE/ COR RR/ ABD SOFT/ WBC 15K/ PRODUCTIVE COUGH CT PENDING TO EVAL EMPYEMA/ MAY NEED VATS Objective: Vital Signs Temp Pulse Resp BP Pulse Ox 37 C 84 16 156/93 H 91 L 04/08/17 04:00 04/08/17 04:00 04/08/17 04:00 04/08/17 04:00 04/08/17 04:00 Microbiology 04/05/17 13:40 - Final Sputum, Expectorated Sputum Culture - Final Miranda Albicans 04/06/17 18:18 Gram Stain - Final Thoracic Fluid - Aspirate Laboratory Results 04/08/17 04:15 04/08/17 04:15 04/07/17 04/08/17 04/09/17 05:59 05:59 05:59 Intake Total 2387 2234 Output Total 750 300 Balance 1637 1934 PT 16.3 SEC (12.0-15.0) H 04/04/17 21:00 INR 1.31 (0.83-1.16) H 04/04/17 21:00 ICD10 Worksheet Patient Problems: Problems Problem Status Onset Community acquired pneumonia Acute Empyema Acute Sepsis Acute Chronic obstructive lung disease Active Clostridium difficile infection Active 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
[2017-04-08] MEDS: FLUTICASONE HFA 220 MCG MDI IH SCH ×2 (10:44→21:24)
[2017-04-08] MEDS: NICOTINE 21 MG/24 HR PATCH TD SCH (10:54)
[2017-04-08] MEDS: guaiFENesin 600 MG TAB.ER PO SCH ×2 (10:54→22:10)
[2017-04-08] MEDS: DULoxetine 60 MG CAP PO SCH (10:54)
[2017-04-08] MEDS: AZITHROMYCIN IV 500 MG in D5W 250 ML IV SCH (10:55)
--- NOTE | 2017-04-08 11:23 | PDINTPN ---
[employer] Progress Note Assessment/Plan: Assessment/plan: 81 F admitted 04/04 with cough, SOB and PNA. CT also showed small but loculated pleural effusion. She has been treated conservatively with abx ned so far. H She also complained of pleuritic CP on admission. * CAP- WBC rising today, likely from empyema. * Empyema- Increased WBC today. She was unable to lay flat for CT today and remains NPO. We have been unsuccessful in avoiding a VATS for her. Will discuss with Dr. Walker. Lengthy discussion with patient yesterday and today. * 04/07/17 14:50 04/08/17 11:21 Objective: Vital Signs Temp Pulse Resp BP Pulse Ox 36.7 C 74 11 L 149/85 H 96 04/08/17 11:07 04/08/17 11:07 04/08/17 11:07 04/08/17 11:07 04/08/17 11:07 Microbiology 04/05/17 13:40 - Final Sputum, Expectorated Sputum Culture - Final Miranda Albicans 04/06/17 18:18 Gram Stain - Final Thoracic Fluid - Aspirate Laboratory Results 04/08/17 04:15 04/08/17 04:15 04/07/17 04/08/17 04/09/17 05:59 05:59 05:59 Intake Total 2387 2234 Output Total 750 300 Balance 1637 1934 PT 16.3 SEC (12.0-15.0) H 04/04/17 21:00 INR 1.31 (0.83-1.16) H 04/04/17 21:00 Physical Exam - Physical Exam General Appearance: alert, no apparent distress EENT: PERRL/EOMI Neck: supple Respiratory: decreased breath sounds (left), crackles (few) Cardiac/Chest: regular rate, rhythm, No edema Abdomen: non-tender, soft, No distended Skin: normal color, warm/dry Lymphatic: no adenopathy Extremities: No pedal edema Neuro/Psych: alert, normal mood/affect, oriented x 3 ICD10 Worksheet Patient Problems: Problems Problem Status Onset Community acquired pneumonia Acute Empyema Acute Sepsis Acute Chronic obstructive lung disease Active Clostridium difficile infection Active 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
[2017-04-08] MEDS ORDERED: BUPIVACAINE/EPI 0.5% 30 ML SDV ONE (16:25)
[2017-04-08] MEDS ORDERED: fentaNYL 100 MCG/2 ML INJ ONE ×2 (16:53→18:47)
[2017-04-08] MEDS ORDERED: REMIFENTANIL HCL 1 MG VIAL ONE (16:53)
[2017-04-08] MEDS ORDERED: PROPOFOL/EMULSION 500 MG/50 ML BOTTLE IV ONE (16:53)
[2017-04-08] MEDS ORDERED: ONDANSETRON 4 MG/2 ML VIAL ONE (16:54)
[2017-04-08] MEDS ORDERED: LIDOCAINE 2% 100 MG/5 ML SYR ONE (16:54)
[2017-04-08] MEDS ORDERED: DEXAMETHASONE 4 MG/ML VIAL ONE (16:54)
[2017-04-08] MEDS ORDERED: PHENYLEPHRINE HCL 100 MCG/ML SYR ONE (17:06)
--- NOTE | 2017-04-08 17:12 | SOAPPROG ---
SOAP Progress Note Assessment/Plan: Assessment: 81 F WITH LLL PNA AND LOTS OF PAIN/ CT SUGGESTS EARLY EMPYEMA LOW GRADE TEMP/ DECREASED BS LLL/ ABD SOFT/ COR RR WBC 15K TOO EARLY TO DEFINITIVELY SAY ABOUT EMPYEMA Plan:WILL FOLLOW/ CONSIDER VATS IF WORSENING/ CONSIDER CHEST US 04/05/17 09:12 04/06/17 13:51 AFEBRILE AND MORE COMFORTABLE BUT CXR LOOKING WORSE/ WILL LIKELY NEED VATS/ WILL DISCUSS WITH PULMONARY 04/07/17 08:51 AFEBRILE/ CXR STILL WITH LLL ATELECTASIS AND PLEURAL EFFUSION/ PAIN DECREASED/ IMPROVING BUT STILL MAY NEED VATS TO PREVENT ENTRAPMENT 04/08/17 08:52 REMAINS AFEBRILE BUT MORE SOB/ BS DECREASED ON THE LEFT BASE/ COR RR/ ABD SOFT/ WBC 15K/ PRODUCTIVE COUGH CT PENDING TO EVAL EMPYEMA/ MAY NEED VATS 04/08/17 17:[address] to tolerate chest ct/ will proceed with vats/ risks and options fully discussed Objective: Vital Signs Temp Pulse Resp BP Pulse Ox 36.6 C 80 20 162/78 H 99 04/08/17 15:46 04/08/17 15:46 04/08/17 15:46 04/08/17 15:46 04/08/17 15:46 Microbiology 04/06/17 18:18 Gram Stain - Final Thoracic Fluid - Aspirate 04/05/17 13:40 - Final Sputum, Expectorated Sputum Culture - Final Miranda Albicans Laboratory Results 04/08/17 04:15 04/08/17 04:15 04/07/17 04/08/17 04/09/17 05:59 05:59 05:59 Intake Total 2387 2234 1117 Output Total 750 300 100 Balance 1637 1934 1017 PT 16.3 SEC (12.0-15.0) H 04/04/17 21:00 INR 1.31 (0.83-1.16) H 04/04/17 21:00 ICD10 Worksheet Patient Problems: Problems Problem Status Onset Community acquired pneumonia Acute Empyema Acute Sepsis Acute Chronic obstructive lung disease Active Clostridium difficile infection Active 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
--- NOTE | 2017-04-08 17:15 | HOSPPROG ---
Hospitalist Progress Note Assessment/Plan: * Sepsis * Empyema - likely needs VATS -IV Unasyn, IV azithro -s/p IR drainage - persistent leukocytosis * Acute on chronic respiratory failure -O2 at night * COPD exacerbation - nebs * Tobacco dependence -nicotine patch Subjective: No new complaints. Objective: Vital Signs Temp Pulse Resp BP Pulse Ox 36.6 C 80 20 162/78 H 99 04/08/17 15:46 04/08/17 15:46 04/08/17 15:46 04/08/17 15:46 04/08/17 15:46 Microbiology 04/06/17 18:18 Gram Stain - Final Thoracic Fluid - Aspirate 04/05/17 13:40 - Final Sputum, Expectorated Sputum Culture - Final Miranda Albicans Laboratory Results 04/08/17 04:15 04/08/17 04:15 04/07/17 04/08/17 04/09/17 05:59 05:59 05:59 Intake Total 2387 2234 1117 Output Total 750 300 100 Balance 1637 1934 1017 PT 16.3 SEC (12.0-15.0) H 04/04/17 21:00 INR 1.31 (0.83-1.16) H 04/04/17 21:00 CXR: no reaccumulation of pleural fluid d/w Dr. Mccallum - he thinks she needs to proceed with VATS - Physical Exam Constitutional: no apparent distress, appears nourished, not in pain Cardiovascular: regular rate and rhythym, no murmur, rub, or gallop Respiratory: no respiratory distress, expiratory wheeze, rhonchi, No reduced air movement, No inspiratory crackles Gastrointestinal: normoactive bowel sounds, soft, non-tender abdomen, no palpable masses Skin: no rashes or abrasions, no fluctuance, no induration Neurologic: AAOx3, sensation intact bilaterally Psychiatric: interacting appropriately, not anxious, not encephalopathic, thought process linear ICD10 Worksheet Patient Problems: Problems Problem Status Onset Community acquired pneumonia Acute Empyema Acute Sepsis Acute Chronic obstructive lung disease Active Clostridium difficile infection Active 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
[2017-04-08] MEDS ORDERED: SUCCINYLCHOLINE CHLORIDE*ANESTHESIA ONLY*200 MG/10 ML SYR IVP ONE ×2 (17:33)
--- NOTE | 2017-04-08 18:37 | POSTOPPROG ---
Post Op Note Date of Operation: 04/08/17 Surgeon: Zhang Walker Home Aid: amairani Anesthesiologist: scar Anesthesia: GET(General Endotracheal) Pre-op Diagnosis: empyema Post-op Diagnosis: same with LLL abscess Indication: persistent fluid collection Procedure: vats drainage of empyema with resection LLL abscess and decortication Findings: LLLabscess, entrapped LLL,small empyema Inf/Abcess present in the surg proc area at time of surgery?: Yes Depth: Organ Space EBL: Minimal Complications: 0 Drains: Constavac Specimen(s): LLL segment with abscess
[2017-04-08] MEDS ORDERED: D5W 1/2 NS W/ 20 KCl/L 1,000 ML IV SCH (18:45)
[2017-04-08] MEDS: PRAVASTATIN SODIUM 20 MG TAB PO SCH (20:01)
[2017-04-08] MEDS: HYDROmorphONE/DILAUDID 1 MG/ML SYR IVP PRN (20:04)
--- NOTE | 2017-04-08 21:05 | GOP ---
[f rep st] OPERATIVE REPORT DATE OF OPERATION: 04/08/2017 SURGEON: Zhang Walker MD TRACK MAN: Wilbert Gonzalez, PAC. ANESTHESIOLOGIST: Ronak Draper MD. PREOPERATIVE DIAGNOSIS: Left lung empyema. POSTOPERATIVE DIAGNOSIS: Left lung empyema, plus left lower lobe lung abscess. PROCEDURE PERFORMED: VATS left empyema drainage, decortication and resection of LLLobe abscess FINDINGS: Patient was found to have some entrapment of the left lower lobe with moderate amount of purulent material in the pleural space, and a left lower lobe lung abscess adherent to the pericardial fat pad. DESCRIPTION OF PROCEDURE: Patient was taken to the operating room, where she received satisfactory general endotracheal anesthesia by Dr. Draper. She was placed in the right lateral decubitus position and prepped and draped in the usual sterile fashion. A short incision was made in the midaxillary line in the 7th intercostal space. A trocar was introduced. The scope was introduced. Poor visibility was present. Area was suctioned clear, and some fluid was sent for culture, although the lung did not appear to drop well. A 3-inch incision was then made at that trocar site, and the muscle fibers were split in the direction of their fibers. The pleural space was entered using blunt and sharp dissection. The fibrinous exudates entrapping the lower lobe were freed up and all pockets were opened up and suctioned clear. The ribs were spread slightly, and the incision was slightly increased to allow passage of the hand into the chest and all lobes were readily mobilized and freed up from any pockets of infection. The lung, itself, never did deflate and was difficult to work around. Fibrinous exudate over the lower lobe was all dissected free and removed, allowing better expansion of the left lower lobe. There was an obvious left lower lobe abscess. This was resected with a YARY stapler and sent to Pathology. Hemostasis was assured. The chest cavity was copiously irrigated. Two #28 chest tubes were brought in through separate stab incisions ; one placed anterior and one placed posterior in the left chest. The ribs were approximated with #1 Vicryl pericostal sutures, muscles were approximated with a running 0 Vicryl suture, subcu was closed with a running 2-0 Vicryl suture, and the skin with skin roman. Chest tubes were secured at the skin with 0 silk sutures. All wounds were infiltrated with 0.5% Marcaine, intercostal nerve block was done with 0.5% Marcaine, and some pleural Marcaine was also instilled. Chest tubes were to a Pleur-Evac drain system. She tolerated the procedure well and was taken to the recovery room in good condition. /[id number]/MODL MTDD
[2017-04-08] MEDS: GABAPENTIN 400 MG CAP PO SCH (22:10)
[2017-04-08] MEDS: oxyCODONE IR 5 MG TAB PO PRN (22:33)
[2017-04-09] MEDS: KETOROLAC 15 MG/1 ML SDV IVP SCH ×2 (00:32→05:19)
[2017-04-09] MEDS: AMPICILLIN/SULBACTAM 3 GM in NS 100 ML IV SCH ×5 (00:32→23:31)
[2017-04-09] MEDS: LEVOTHYROXINE 112 MCG TAB PO SCH (05:10)
[2017-04-09] MEDS: oxyCODONE IR 5 MG TAB PO PRN ×3 (05:10→18:22)
[2017-04-09 05:36] LABS: % IMMATURE GRANULYOCYTES 0.8 % (0.0-1.1); ABSOLUTE IMMATURE GRANULOCYTES 0.13 10^3/uL (0.00-0.10); ADD DIFF? NO; ADD MORPH? NO; ADD SCAN? NO; ATYPICAL LYMPHOCYTE FLAG 20 (0-99); FRAGMENT RBC FLAG 0 (0-99); HEMOGLOBIN 10.7 g/dL (12.6-16.3); LEFT SHIFT FLG 40 (0-99); LIPEMIA HEMOLYSIS FLAG 80 (0-99); MEAN CELL HEMOGLOBIN 29.6 pg (27.9-34.1); MEAN CELL HEMOGLOBIN CONCENTR. 33.4 g/dL (32.4-36.7); MEAN CELL VOLUME 88.6 fL (81.5-99.8); MEAN PLATELET VOLUME 9.8 fL (8.7-11.7); PLATELET CLUMPS FLAG 0 (0-99); PLATELET COUNT 250 10^3/uL (150-400); RED BLOOD CELL COUNT 3.61 10^6/uL (4.18-5.33); RED CELL DISTRIBUTION WIDTH 15.3 % (11.5-15.2)
[2017-04-09 05:47] LABS: ANION GAP 7 mEq/L (8-16); CALCIUM 7.2 mg/dL (8.5-10.4); CARBON DIOXIDE 26 mEq/l (22-31); CHLORIDE 106 mEq/L (97-110); CREATININE 0.6 mg/dL (0.6-1.0); GLOMERULAR FILTRATION RATE > 60; GLUCOSE 137 mg/dL (70-100); POTASSIUM 3.4 mEq/L (3.5-5.2); SODIUM 139 mEq/L (134-144)
[2017-04-09] MEDS: IPRATROPIUM/ALBUTEROL 3 ML DEYVIAL IH SCH ×4 (06:06→20:38)
[2017-04-09] MEDS ORDERED: ERTAPENEM 1 GM in NS 100 ML IV SCH (09:00)
[2017-04-09] MEDS: NICOTINE 21 MG/24 HR PATCH TD SCH ×2 (10:37→16:50)
[2017-04-09] MEDS: AZITHROMYCIN IV 500 MG in D5W 250 ML IV SCH (10:37)
[2017-04-09] MEDS: FLUTICASONE HFA 220 MCG MDI IH SCH ×2 (10:38→20:38)
[2017-04-09] MEDS: DULoxetine 60 MG CAP PO SCH (10:38)
[2017-04-09] MEDS: guaiFENesin 600 MG TAB.ER PO SCH ×2 (10:38→21:22)
[2017-04-09] MEDS: ENOXAPARIN 40 MG/0.4 ML SYR SC SCH (11:48)
[2017-04-09] MEDS: fentaNYL 50 MCG PATCH TD SCH (11:48)
--- NOTE | 2017-04-09 12:13 | SOAPPROG ---
SOAP Progress Note Assessment/Plan: Assessment: 81yo female s/p VATS, mini thoracotomy for empyema, POD 1 Thankful for surgery, pain well controlled, no SOB PE in chair, alert, very comfortable Chest Left chest tubes in place, no leak, minimal output, decreased breath sounds left lower Ht RRR Plan: saw pt with Dr Walker continue chest tube management 04/09/17 12:10 Objective: Vital Signs Temp Pulse Resp BP Pulse Ox 36.8 C 86 15 110/61 96 04/09/17 11:52 04/09/17 11:52 04/09/17 11:52 04/09/17 11:52 04/09/17 11:52 Microbiology 04/08/17 17:38 Gram Stain - Final Pleural Fluid - Aspirate 04/06/17 18:18 Gram Stain - Final Thoracic Fluid - Aspirate Laboratory Results 04/09/17 05:10 04/09/17 05:10 04/08/17 04/09/17 04/10/17 05:59 05:59 05:59 Intake Total 2234 3585 360 Output Total 300 640 300 Balance 1934 2945 60 PT 16.3 SEC (12.0-15.0) H 04/04/17 21:00 INR 1.31 (0.83-1.16) H 04/04/17 21:00 ICD10 Worksheet Patient Problems: Problems Problem Status Onset Community acquired pneumonia Acute Empyema Acute Sepsis Acute Chronic obstructive lung disease Active Clostridium difficile infection Active 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
--- NOTE | 2017-04-09 15:07 | HOSPPROG ---
Hospitalist Progress Note Assessment/Plan: * Sepsis * Empyema s/p VATS decortication -IV Unasyn, IV azithro - will likely need prolonged abx -d/w Dr. Talavera - ID to consult -chest tubes per surgery * Acute on chronic respiratory failure -O2 at night * COPD exacerbation - nebs * Tobacco dependence -nicotine patch -cessation advised * 4.2 cm thoracic aortic aneurysm -outpatient follow-up Subjective: Feeling much better today. Ate well. Objective: Vital Signs Temp Pulse Resp BP Pulse Ox 36.8 C 83 12 100/56 L 91 L 04/09/17 11:52 04/09/17 14:00 04/09/17 14:00 04/09/17 14:00 04/09/17 14:00 Microbiology 04/06/17 18:18 Gram Stain - Final Thoracic Fluid - Aspirate Body Fluid Culture - Final 04/08/17 17:38 Gram Stain - Final Pleural Fluid - Aspirate Laboratory Results 04/09/17 05:10 04/09/17 05:10 04/08/17 04/09/17 04/10/17 05:59 05:59 05:59 Intake Total 2234 3585 360 Output Total 300 640 300 Balance 1934 2945 60 PT 16.3 SEC (12.0-15.0) H 04/04/17 21:00 INR 1.31 (0.83-1.16) H 04/04/17 21:00 CXR post-op - post surgical change, otherwise unremarkable - Physical Exam Constitutional: no apparent distress, appears nourished, not in pain Cardiovascular: regular rate and rhythym, no murmur, rub, or gallop Respiratory: no respiratory distress, rhonchi, No reduced air movement, No expiratory wheeze (better) Gastrointestinal: normoactive bowel sounds, soft, non-tender abdomen, no palpable masses Skin: no rashes or abrasions, no fluctuance, no induration Neurologic: AAOx3, sensation intact bilaterally Psychiatric: interacting appropriately, not anxious, not encephalopathic, thought process linear ICD10 Worksheet Patient Problems: Problems Problem Status Onset Community acquired pneumonia Acute Empyema Acute Sepsis Acute Chronic obstructive lung disease Active Clostridium difficile infection Active 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
--- NOTE | 2017-04-09 16:27 | PDINTPN ---
Recovery Operator Progress Note Assessment/Plan: Assessment/plan: 81 F admitted 04/04 with cough, SOB and PNA. CT also showed small but loculated pleural effusion. She has been treated conservatively with abx ned so far. H She also complained of pleuritic CP on admission. * CAP- stable * Empyema- s/p VATS with chest tubes in place. Tolerated well. Continue abx for at least 14 days depending on clinical response. * Hypoxemia- needs IS Objective: Vital Signs Temp Pulse Resp BP Pulse Ox 36.8 C 84 22 H 105/90 H 94 04/09/17 16:00 04/09/17 16:00 04/09/17 16:00 04/09/17 16:00 04/09/17 16:00 Microbiology 04/08/17 17:38 Gram Stain - Final Pleural Fluid - Aspirate 04/06/17 18:18 Gram Stain - Final Thoracic Fluid - Aspirate Body Fluid Culture - Final Laboratory Results 04/09/17 05:10 04/09/17 05:10 04/08/17 04/09/17 04/10/17 05:59 05:59 05:59 Intake Total 2234 3585 360 Output Total 300 640 300 Balance 1934 2945 60 PT 16.3 SEC (12.0-15.0) H 04/04/17 21:00 INR 1.31 (0.83-1.16) H 04/04/17 21:00 Physical Exam - Physical Exam General Appearance: WD/WN, alert, no apparent distress EENT: PERRL/EOMI Neck: supple Respiratory: lungs clear (on right), rhonchi (on left), No respiratory distress Cardiac/Chest: regular rate, rhythm, No edema Abdomen: normal bowel sounds, non-tender, soft, No distended Skin: normal color, warm/dry Lymphatic: no adenopathy Extremities: No pedal edema Neuro/Psych: alert, normal mood/affect, oriented x 3 ICD10 Worksheet Patient Problems: Problems Problem Status Onset Community acquired pneumonia Acute Empyema Acute Sepsis Acute Chronic obstructive lung disease Active Clostridium difficile infection Active 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
[2017-04-09] MEDS: PRAVASTATIN SODIUM 20 MG TAB PO SCH (18:18)
--- NOTE | 2017-04-09 18:43 | GCON ---
[f rep st] CONSULTATION INPATIENT INFECTIOUS DISEASE CONSULTATION REFERRING PHYSICIAN: Emilia Haider MD REASON FOR REFERRAL: Empyema, status post VATS. HISTORY OF PRESENT ILLNESS: Patient is a 81-year-old female, who was admitted to [facility] through the emergency room on 04/04/2017. Initial CT workup showed left lower lobe pneumonia and early empyema. Attempt was made initially to treat with antibiotics alone. The patient underw ent a thoracentesis on 04/06/2017, which accessed approximately 30 cc of yellowish opaque fluid. Th e effusion was clearly multi loculated as other collections there did not drain at that point. Anti biotics were continued. Unasyn and azithromycin were chosen for the regimen. The patient was not f ebrile during her stay. White blood cell count did not significantly improve despite therapy and th oracentesis. Decision was made to take patient to surgery for left lung empyema. In addition, the empyema left lower lung abscess was noted as well. Samples were taken. Patient continues to conval esce in the ICU. She has chest tubes indwelling. She is sitting up at the side of the bed and awai ting dinner. Other than discomfort from the chest tubes, she has no particular complaint. PAST MEDICAL HISTORY: 1. COPD. 2. Hyperlipidemia. 3. History of chronic aspiration. 4. Retroperitoneal fibrosis. 5. Hypothyroidism. 6. Pulmonary hypertension. PAST SURGICAL HISTORY: 1. Status post thyroid surgery. 2. Status post ureteral stent placement secondary to entrapment from the retroperitoneal fibrosis. 3. Status post foot surgery. 4. Status post VATS. ANTIBIOTICS: 1. Unasyn. 2. Azithromycin. ALLERGIES: Patient is allergic to iodine and contrast media. FAMILY HISTORY: Noncontributory. SOCIAL HISTORY: The patient is a continuing tobacco user. No alcohol use x1 year. No history of d rug use. REVIEW OF SYSTEMS: Other than that detailed above in the History of Present Illness, a comprehensiv e 10-system review is negative. PHYSICAL EXAMINATION: VITAL SIGNS: Temperature maximum is 37.2, temperature current is 36.8. Hear t rate is 84, respiratory rate is 22, blood pressure is 105/90. GENERAL: The patient is a well-for med, thin, elderly female in no acute distress. She is not toxic in appearance. She is alert and o riented x3. She has a pleasant demeanor. HEENT: Normocephalic for age. Atraumatic. No scleral i cterus. No oral lesion. No drainage from the nares. Eyes: Lids and conjunctiva are within normal limits. Pupils equal, round, bilaterally. NECK: Supple. No meningismus. LUNGS: Clear to auscu ltation with decreased breath sounds in the bases. Left side with greater decreased breath sounds i n the base than right. The patient has chest tubes indwelling that are draining serosanguineous flu id. Good effort. HEART: Regular rate and rhythm. No murmur, rub, or gallop noted. No significan t peripheral edema. SKIN: Warm and dry to the touch. No rash or lesion noted. MUSCULOSKELETAL: No muscle belly tenderness is noted. No joint line effusion or arthritis seen. NEURO: Cranial ner ves 2-12 seem intact. Peripheral sensation seems intact in the extremities. LABORATORY DATA: Patient has a CBC dated 04/09/2017, shows white blood cell count of 16.0, hemoglob in of 10.7, hematocrit of 32.0, platelet count of 250. Differential shows 83% segmented neutrophils . Serum chemistries on 04/09/2017 show sodium 139, potassium 3.4, chloride 106, bicarbonate 26, BUN of 8, creatinine of 0.6. Pleural fluid from aspiration on 04/06/2017 shows 1,341 white cells, 10,500 red cells, neutrophil pr edominance. Influenza A and B PCR is negative. Urine Legionella antigen is negative. Urine strep pneumo antigen is negative. MICROBIOLOGIC DATA: The patient has blood cultures dated 04/04/2017, which are no growth to date. Pleural fluid aspirate from the operating room on 04/08/2017. Gram stain shows 3+ polymorphonuclear white cells, 1+ mononuclear white cells, 1+ gram-positive cocci in chains. No growth in culture as yet. ASSESSMENT: Left lower lobe lung abscess with empyema. Given her chronic aspiration history and th e finding of GPCs in chains on the operative sample's Gram stain, I suspect this is oral streptococc i causing this pathology. The patient is currently covered on Unasyn and azithromycin. The azithro mycin does not add anything to this coverage given its etiology. We will discontinue that today. A nticipate she will need approximately a 4 week course of antibiotic. Will evaluate through her stay as she improves. PLAN: 1. Continue Unasyn. 2. Discontinue azithromycin. 3. Follow her clinical improvement including her chest tube output. /[id number]/MODL
[2017-04-09] MEDS: GABAPENTIN 400 MG CAP PO SCH (21:15)
[2017-04-09] MEDS: HYDROmorphONE/DILAUDID 1 MG/ML SYR IVP PRN (21:22)
[2017-04-10] MEDS: clonazePAM 0.5 MG TAB PO PRN ×2 (01:33→21:03)
[2017-04-10 05:14] LABS: % IMMATURE GRANULYOCYTES 0.7 % (0.0-1.1); ADD DIFF? NO; ADD MORPH? NO; ADD SCAN? NO; ATYPICAL LYMPHOCYTE FLAG 0 (0-99); FRAGMENT RBC FLAG 0 (0-99); HEMATOCRIT 31.3 % (38.0-47.0); HEMOGLOBIN 10.6 g/dL (12.6-16.3); LEFT SHIFT FLG 10 (0-99); LIPEMIA HEMOLYSIS FLAG 90 (0-99); MEAN CELL HEMOGLOBIN 29.9 pg (27.9-34.1); MEAN CELL HEMOGLOBIN CONCENTR. 33.9 g/dL (32.4-36.7); MEAN CELL VOLUME 88.4 fL (81.5-99.8); MEAN PLATELET VOLUME 9.8 fL (8.7-11.7); PLATELET CLUMPS FLAG 0 (0-99); PLATELET COUNT 295 10^3/uL (150-400); RED BLOOD CELL COUNT 3.54 10^6/uL (4.18-5.33); RED CELL DISTRIBUTION WIDTH 15.1 % (11.5-15.2)
[2017-04-10 05:23] LABS: ANION GAP 10 mEq/L (8-16); CALCIUM 7.4 mg/dL (8.5-10.4); CARBON DIOXIDE 28 mEq/l (22-31); CHLORIDE 103 mEq/L (97-110); CREATININE 0.6 mg/dL (0.6-1.0); GLOMERULAR FILTRATION RATE > 60; GLUCOSE 99 mg/dL (70-100); POTASSIUM 3.1 mEq/L (3.5-5.2); SODIUM 141 mEq/L (134-144)
[2017-04-10] MEDS: AMPICILLIN/SULBACTAM 3 GM in NS 100 ML IV SCH ×4 (05:37→23:24)
[2017-04-10] MEDS: LEVOTHYROXINE 112 MCG TAB PO SCH (05:37)
[2017-04-10] MEDS ORDERED: PROTOCOL POTASSIUM 1 DOSE MISC PRN (05:49)
[2017-04-10] MEDS: IPRATROPIUM/ALBUTEROL 3 ML DEYVIAL IH SCH ×4 (05:50→21:26)
[2017-04-10] MEDS ORDERED: POTASSIUM CL 10 MEQ TAB PO ONE ×2 (05:50→20:31)
[2017-04-10] MEDS: oxyCODONE IR 5 MG TAB PO PRN ×3 (06:30→21:03)
[2017-04-10] MEDS: NICOTINE 21 MG/24 HR PATCH TD SCH (09:04)
[2017-04-10] MEDS: guaiFENesin 600 MG TAB.ER PO SCH ×2 (09:05→20:46)
[2017-04-10] MEDS: ENOXAPARIN 40 MG/0.4 ML SYR SC SCH (09:05)
[2017-04-10] MEDS: DULoxetine 60 MG CAP PO SCH (09:05)
--- NOTE | 2017-04-10 09:30 | PCMIDPN ---
Assessment/Plan: Assessment: Likely aspiration pneumonia with empyema. Status post VATS. GPCs in chains on Gram stain of the operative sample. Plan to continue Unasyn. Patient is generally doing better. Plan: 1. Continue Unasyn at current dose. 2. Follow clinical course. 04/11/17 09:17 Subjective: Patient is resting in her hospital room. Her output through her chest tubes is significantly decreased. No fevers or chills. No rash. Objective: Unasyn # 5 Vital Signs Temp Pulse Resp BP Pulse Ox 36.3 C 79 15 112/66 98 04/10/17 08:00 04/10/17 08:00 04/10/17 08:00 04/10/17 08:00 04/10/17 08:00 Microbiology 04/08/17 17:38 Gram Stain - Final Pleural Fluid - Aspirate 04/06/17 18:18 Gram Stain - Final Thoracic Fluid - Aspirate Body Fluid Culture - Final Laboratory Results 04/10/17 04:55 04/10/17 04:55 04/09/17 04/10/17 04/11/17 05:59 05:59 05:59 Intake Total 3585 2197 Output Total 640 565 Balance 2945 1632 - Physical Exam General Appearance: WD/WN, alert, no apparent distress Respiratory: lungs clear, normal breath sounds, other (Chest tube in place left side.), No respiratory distress Cardiac/Chest: regular rate, rhythm, No tachycardia Extremities: non-tender, normal inspection Skin: normal color, warm/dry, No rash Neuro/Psych: alert, normal mood/affect, oriented x 3 ICD10 Worksheet Patient Problems: Problems Problem Status Onset Community acquired pneumonia Acute Empyema Acute Sepsis Acute Chronic obstructive lung disease Active Clostridium difficile infection Active 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
--- NOTE | 2017-04-10 10:33 | SOAPPROG ---
SOAP Progress Note Assessment/Plan: Assessment/Plan: -81yo F s/p L VATs decort for empyema - Pain appears controlled, still not working with IS much. Discussed the importance of this again today - Lungs on CXR look overall about the same but the lung is up and there is no ptx and I dont appreciate an air leak. Will place to waterseal. Cont chest tubes for now - Aggressive IS, IV abx per ID/IM. Repeat CXR tomorrow 04/10/17 10:32 Subjective: Has some L sided chest pain, no other complaints Objective: Vital Signs Temp Pulse Resp BP Pulse Ox 36.3 C 79 15 112/66 98 04/10/17 08:00 04/10/17 08:00 04/10/17 08:00 04/10/17 08:00 04/10/17 08:00 Microbiology 04/08/17 17:38 Gram Stain - Final Pleural Fluid - Aspirate 04/06/17 18:18 Gram Stain - Final Thoracic Fluid - Aspirate Body Fluid Culture - Final Laboratory Results 04/10/17 04:55 04/10/17 04:55 04/09/17 04/10/17 04/11/17 05:59 05:59 05:59 Intake Total 3585 2197 Output Total 640 565 Balance 2945 1632 PT 16.3 SEC (12.0-15.0) H 04/04/17 21:00 INR 1.31 (0.83-1.16) H 04/04/17 21:00 ICD10 Worksheet Patient Problems: Problems Problem Status Onset Community acquired pneumonia Acute Empyema Acute Sepsis Acute Chronic obstructive lung disease Active Clostridium difficile infection Active 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
[2017-04-10] MEDS: FLUTICASONE HFA 220 MCG MDI IH SCH ×2 (11:57→21:26)
--- NOTE | 2017-04-10 13:11 | PDINTPN ---
Process Engineering Intern Progress Note Assessment/Plan: Assessment/plan: 81 F admitted 04/04 with cough, SOB and PNA. CT also showed small but loculated pleural effusion. She has been treated conservatively with abx ned so far. H She also complained of pleuritic CP on admission. * CAP- stable with dropping wbc * Empyema- s/p VATS with chest tubes in place. Tolerated well. Continue abx for at least 14 days depending on clinical response. Changed to water seal today * Hypoxemia- needs IS, though she has not used it much * Delerium? she seems a bit off today. She would likely benefit from transfer to the floor 04/10/17 13:09 Objective: Vital Signs Temp Pulse Resp BP Pulse Ox 37.3 C 19 L 17 115/62 96 04/10/17 12:00 04/10/17 12:00 04/10/17 12:00 04/10/17 12:00 04/10/17 12:00 Microbiology 04/08/17 17:38 Gram Stain - Final Pleural Fluid - Aspirate 04/06/17 18:18 Gram Stain - Final Thoracic Fluid - Aspirate Body Fluid Culture - Final Laboratory Results 04/10/17 04:55 04/10/17 04:55 04/09/17 04/10/17 04/11/17 05:59 05:59 05:59 Intake Total 3585 2197 Output Total 640 565 520 Balance 2945 1632 -520 PT 16.3 SEC (12.0-15.0) H 04/04/17 21:00 INR 1.31 (0.83-1.16) H 04/04/17 21:00 Physical Exam - Physical Exam General Appearance: alert, no apparent distress EENT: PERRL/EOMI Neck: supple Respiratory: chest non-tender, lungs clear (right), rhonchi (left) Cardiac/Chest: regular rate, rhythm, No edema Abdomen: non-tender, soft, No distended Skin: normal color, warm/dry Lymphatic: no adenopathy Extremities: No pedal edema Neuro/Psych: alert, normal mood/affect, oriented x 3, other (walking in the halls) ICD10 Worksheet Patient Problems: Problems Problem Status Onset Community acquired pneumonia Acute Empyema Acute Sepsis Acute Chronic obstructive lung disease Active Clostridium difficile infection Active 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
--- NOTE | 2017-04-10 15:26 | HOSPPROG ---
Hospitalist Progress Note Assessment/Plan: * Sepsis * Empyema s/p VATS decortication -IV Unasyn - will likely need prolonged abx -chest tubes per surgery * Acute on chronic respiratory failure - 10L -failed attempts to wean O2 -basline - O2 at night only * COPD exacerbation - nebs * Tobacco dependence -nicotine patch -cessation advised * 4.2 cm thoracic aortic aneurysm -outpatient follow-up Subjective: No complaints. Refusing IS Objective: Vital Signs Temp Pulse Resp BP Pulse Ox 37.3 C 19 L 17 115/62 96 04/10/17 12:00 04/10/17 12:00 04/10/17 12:00 04/10/17 12:00 04/10/17 12:00 Microbiology 04/08/17 17:38 Gram Stain - Final Pleural Fluid - Aspirate 04/06/17 18:18 Gram Stain - Final Thoracic Fluid - Aspirate Body Fluid Culture - Final Laboratory Results 04/10/17 04:55 04/10/17 04:55 04/09/17 04/10/17 04/11/17 05:59 05:59 05:59 Intake Total 3585 2197 Output Total 640 565 520 Balance 2945 1632 -520 PT 16.3 SEC (12.0-15.0) H 04/04/17 21:00 INR 1.31 (0.83-1.16) H 04/04/17 21:00 d/w Dr. Mccallum ICU rounds - likely okay for floor CXR viewed, my personal interpretation is - significant left infiltrate, no fluid - Physical Exam Constitutional: no apparent distress, appears nourished, not in pain Cardiovascular: regular rate and rhythym, no murmur, rub, or gallop Respiratory: no respiratory distress, no rales or rhonchi, clear to auscultation Gastrointestinal: normoactive bowel sounds, soft, non-tender abdomen, no palpable masses Skin: no rashes or abrasions, no fluctuance, no induration Neurologic: AAOx3, sensation intact bilaterally Psychiatric: interacting appropriately, not anxious, not encephalopathic, thought process linear ICD10 Worksheet Patient Problems: Problems Problem Status Onset Community acquired pneumonia Acute Empyema Acute Sepsis Acute Chronic obstructive lung disease Active Clostridium difficile infection Active 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
[2017-04-10] MEDS: PRAVASTATIN SODIUM 20 MG TAB PO SCH (18:24)
[2017-04-10 18:56] LABS: POTASSIUM 3.4 mEq/L (3.5-5.2)
[2017-04-10] MEDS: GABAPENTIN 400 MG CAP PO SCH (20:46)
[2017-04-10] MEDS: ACETAMINOPHEN 325 MG TAB PO PRN (23:27)
[2017-04-11 07:48] LABS: % IMMATURE GRANULYOCYTES 1.7 % (0.0-1.1); ABSOLUTE IMMATURE GRANULOCYTES 0.21 10^3/uL (0.00-0.10); ADD DIFF? NO; ADD MORPH? NO; ADD SCAN? NO; ATYPICAL LYMPHOCYTE FLAG 40 (0-99); FRAGMENT RBC FLAG 20 (0-99); HEMATOCRIT 29.1 % (38.0-47.0); HEMOGLOBIN 9.8 g/dL (12.6-16.3); LEFT SHIFT FLG 10 (0-99); LIPEMIA HEMOLYSIS FLAG 80 (0-99); MEAN CELL HEMOGLOBIN 29.4 pg (27.9-34.1); MEAN CELL HEMOGLOBIN CONCENTR. 33.7 g/dL (32.4-36.7); MEAN CELL VOLUME 87.4 fL (81.5-99.8); MEAN PLATELET VOLUME 10.5 fL (8.7-11.7); PLATELET CLUMPS FLAG 70 (0-99); PLATELET COUNT 386 10^3/uL (150-400); RED BLOOD CELL COUNT 3.33 10^6/uL (4.18-5.33); RED CELL DISTRIBUTION WIDTH 15.3 % (11.5-15.2)
[2017-04-11] MEDS: IPRATROPIUM/ALBUTEROL 3 ML DEYVIAL IH SCH ×5 (08:11→20:38)
[2017-04-11 08:14] LABS: ANION GAP 6 mEq/L (8-16); CALCIUM 7.7 mg/dL (8.5-10.4); CARBON DIOXIDE 30 mEq/l (22-31); CHLORIDE 102 mEq/L (97-110); CREATININE 0.5 mg/dL (0.6-1.0); GLOMERULAR FILTRATION RATE > 60; GLUCOSE 104 mg/dL (70-100); POTASSIUM 4.4 mEq/L (3.5-5.2); SODIUM 138 mEq/L (134-144)
[2017-04-11] MEDS ORDERED: POLYETHYLENE GLYCOL 3350 17 GM PKT PO PRN (08:26)
[2017-04-11] MEDS ORDERED: MAGNESIUM HYDROXIDE 30 ML UDCUP PO PRN (08:26)
[2017-04-11] MEDS ORDERED: BISACODYL 10 MG SUPP PR PRN (08:26)
[2017-04-11] MEDS: SENNOSIDES/DOCUSATE SODIUM TAB PO SCH ×2 (08:54→21:27)
[2017-04-11] MEDS: DULoxetine 60 MG CAP PO SCH (08:54)
[2017-04-11] MEDS: guaiFENesin 600 MG TAB.ER PO SCH ×2 (08:54→21:27)
[2017-04-11] MEDS: ENOXAPARIN 40 MG/0.4 ML SYR SC SCH (08:54)
[2017-04-11] MEDS: AMPICILLIN/SULBACTAM 3 GM in NS 100 ML IV SCH ×5 (09:08→23:01)
--- NOTE | 2017-04-11 09:17 | SOAPPROG ---
SOAP Progress Note Assessment/Plan: Assessment/Plan: -81yo F s/p L VATs decort for empyema - CXR looks about the same, lung remains up without ptx and I dont appreciate air leak on exam. - Keep CT today, waterseal ok. Repeat film tomorrow - Likely dc CT early this week - Aggressive bowel regimen added to aid with BM 04/10/17 10:32 04/11/17 09:16 Subjective: Feels a little better today, still hasnt had BM Objective: Vital Signs Temp Pulse Resp BP Pulse Ox 36.5 C 90 20 118/71 93 04/11/17 08:00 04/11/17 08:00 04/11/17 08:00 04/11/17 08:00 04/11/17 08:00 Microbiology 04/08/17 17:38 Gram Stain - Final Pleural Fluid - Aspirate Laboratory Results 04/11/17 06:00 04/11/17 06:00 04/10/17 04/11/17 04/12/17 05:59 05:59 05:59 Intake Total 2197 650 Output Total 565 532 Balance 1632 118 PT 16.3 SEC (12.0-15.0) H 04/04/17 21:00 INR 1.31 (0.83-1.16) H 04/04/17 21:00 ICD10 Worksheet Patient Problems: Problems Problem Status Onset Community acquired pneumonia Acute Empyema Acute Sepsis Acute Chronic obstructive lung disease Active Clostridium difficile infection Active 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
[2017-04-11] MEDS: LEVOTHYROXINE 112 MCG TAB PO SCH (09:39)
[2017-04-11] MEDS: FLUTICASONE HFA 220 MCG MDI IH SCH ×2 (11:01→20:38)
[2017-04-11] MEDS: NICOTINE 21 MG/24 HR PATCH TD SCH (11:01)
[2017-04-11] MEDS: fentaNYL 50 MCG PATCH TD SCH (14:15)
[2017-04-11] MEDS: oxyCODONE IR 5 MG TAB PO PRN ×2 (14:15→21:27)
--- NOTE | 2017-04-11 15:05 | HOSPPROG ---
Hospitalist Progress Note Assessment/Plan: * Sepsis due to aspiration pneumonia * Empyema s/p VATS decortication -IV Unasyn - will need prolonged abx -chest tubes per surgery * Acute on chronic respiratory failure - 10L -wean O2 -baseline - O2 at night only * COPD exacerbation - nebs * Tobacco dependence -nicotine patch -cessation advised * 4.2 cm thoracic aortic aneurysm -outpatient follow-up Subjective: No complaints. Feeling better. Objective: Vital Signs Temp Pulse Resp BP Pulse Ox 36.5 C 92 1 L 118/71 93 04/11/17 08:00 04/11/17 11:57 04/11/17 11:57 04/11/17 08:00 04/11/17 08:00 Microbiology 04/08/17 17:38 Gram Stain - Final Pleural Fluid - Aspirate Laboratory Results 04/11/17 06:00 04/11/17 06:00 04/10/17 04/11/17 04/12/17 05:59 05:59 05:59 Intake Total 2197 650 Output Total 565 532 Balance 1632 118 PT 16.3 SEC (12.0-15.0) H 04/04/17 21:00 INR 1.31 (0.83-1.16) H 04/04/17 21:00 cxr viewed, my personal interpretation is - significant left infiltrate, chest tubes in place continuos pulse ox reviewed - titrated O2 3-4 L with sats dropping into high 80s - Physical Exam Constitutional: no apparent distress, appears nourished, not in pain Cardiovascular: regular rate and rhythym, no murmur, rub, or gallop Respiratory: no respiratory distress, no rales or rhonchi, clear to auscultation Gastrointestinal: normoactive bowel sounds, soft, non-tender abdomen, no palpable masses Skin: no rashes or abrasions, no fluctuance, no induration Neurologic: AAOx3, sensation intact bilaterally Psychiatric: interacting appropriately, not anxious, not encephalopathic, thought process linear ICD10 Worksheet Patient Problems: Problems Problem Status Onset Community acquired pneumonia Acute Empyema Acute Sepsis Acute Chronic obstructive lung disease Active Clostridium difficile infection Active 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
[2017-04-11] MEDS: PRAVASTATIN SODIUM 20 MG TAB PO SCH (17:06)
--- NOTE | 2017-04-11 18:24 | PCMIDPN ---
Assessment/Plan: Assessment: Likely aspiration pneumonia with empyema. Status post VATS. GPCs in chains on Gram stain of the operative sample. No culture growth yet.Plan to continue Unasyn. Patient is generally doing better. Chest tube seems to be putting out less amount than initial output. Plan: 1. Continue Unasyn at current dose. 2. Follow clinical course. Subjective: Patient is resting comfortably in her hospital bed. Complains of dry mouth and nose secondary to oxygen supplementation. Otherwise no fevers. Shortness of breath is not present. Objective: Unasyn # 6 Vital Signs Temp Pulse Resp BP Pulse Ox 36.4 C 81 16 129/69 H 91 L 04/11/17 15:50 04/11/17 16:01 04/11/17 16:01 04/11/17 15:50 04/11/17 16:01 Microbiology 04/08/17 17:38 Gram Stain - Final Pleural Fluid - Aspirate Laboratory Results 04/11/17 06:00 04/11/17 06:00 04/10/17 04/11/17 04/12/17 05:59 05:59 05:59 Intake Total 2197 650 350 Output Total 565 532 Balance 1632 118 350 - Physical Exam General Appearance: WD/WN, alert, no apparent distress, non-toxic Respiratory: lungs clear, other ( chest tube in place left side with serosanguineous discharge.), No normal breath sounds ( decreased breath sounds left lower lobe), No crackles, No wheezing Cardiac/Chest: regular rate, rhythm, No tachycardia Skin: normal color, warm/dry, No rash Neuro/Psych: alert, normal mood/affect, oriented x 3 ICD10 Worksheet Patient Problems: Problems Problem Status Onset Community acquired pneumonia Acute Empyema Acute Sepsis Acute Chronic obstructive lung disease Active Clostridium difficile infection Active 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
[2017-04-11 19:35] LABS: POTASSIUM 3.4 mEq/L (3.5-5.2)
[2017-04-11] MEDS: guaiFENesin/CODEINE PHOS 10 ML UDCUP PO PRN (21:26)
[2017-04-11] MEDS: GABAPENTIN 400 MG CAP PO SCH (21:27)
[2017-04-11] MEDS: clonazePAM 0.5 MG TAB PO PRN (21:27)
[2017-04-11] MEDS ORDERED: POTASSIUM CL 10 MEQ TAB PO ONE (21:58)
[2017-04-12] MEDS: IPRATROPIUM/ALBUTEROL 3 ML DEYVIAL IH SCH ×4 (05:23→21:16)
[2017-04-12] MEDS: AMPICILLIN/SULBACTAM 3 GM in NS 100 ML IV SCH ×3 (05:29→18:32)
[2017-04-12] MEDS: LEVOTHYROXINE 112 MCG TAB PO SCH (05:29)
[2017-04-12 06:06] LABS: % IMMATURE GRANULYOCYTES 0.6 % (0.0-1.1); ABSOLUTE IMMATURE GRANULOCYTES 0.07 10^3/uL (0.00-0.10); ADD DIFF? NO; ADD MORPH? NO; ADD SCAN? NO; ATYPICAL LYMPHOCYTE FLAG 40 (0-99); FRAGMENT RBC FLAG 10 (0-99); HEMATOCRIT 28.5 % (38.0-47.0); HEMOGLOBIN 9.7 g/dL (12.6-16.3); LEFT SHIFT FLG 0 (0-99); LIPEMIA HEMOLYSIS FLAG 90 (0-99); MEAN CELL HEMOGLOBIN 29.4 pg (27.9-34.1); MEAN CELL VOLUME 86.4 fL (81.5-99.8); MEAN PLATELET VOLUME 10.3 fL (8.7-11.7); PLATELET CLUMPS FLAG 10 (0-99); PLATELET COUNT 347 10^3/uL (150-400); RED CELL DISTRIBUTION WIDTH 15.5 % (11.5-15.2)
[2017-04-12 06:09] LABS: ANION GAP 5 mEq/L (8-16); CALCIUM 7.6 mg/dL (8.5-10.4); CARBON DIOXIDE 33 mEq/l (22-31); CHLORIDE 99 mEq/L (97-110); CREATININE 0.5 mg/dL (0.6-1.0); GLOMERULAR FILTRATION RATE > 60; GLUCOSE 85 mg/dL (70-100); SODIUM 137 mEq/L (134-144)
[2017-04-12] MEDS: DULoxetine 60 MG CAP PO SCH (09:25)
[2017-04-12] MEDS: guaiFENesin 600 MG TAB.ER PO SCH ×2 (09:25→21:10)
[2017-04-12] MEDS: SENNOSIDES/DOCUSATE SODIUM TAB PO SCH ×2 (09:25→21:10)
[2017-04-12] MEDS: ENOXAPARIN 40 MG/0.4 ML SYR SC SCH (09:25)
[2017-04-12] MEDS: NICOTINE 21 MG/24 HR PATCH TD SCH (09:26)
--- NOTE | 2017-04-12 10:10 | SOAPPROG ---
SOAP Progress Note Assessment/Plan: Assessment: 81 F WITH LLL PNA AND LOTS OF PAIN/ CT SUGGESTS EARLY EMPYEMA LOW GRADE TEMP/ DECREASED BS LLL/ ABD SOFT/ COR RR WBC 15K TOO EARLY TO DEFINITIVELY SAY ABOUT EMPYEMA Plan:WILL FOLLOW/ CONSIDER VATS IF WORSENING/ CONSIDER CHEST US 04/05/17 09:12 04/06/17 13:51 AFEBRILE AND MORE COMFORTABLE BUT CXR LOOKING WORSE/ WILL LIKELY NEED VATS/ WILL DISCUSS WITH PULMONARY 04/07/17 08:51 AFEBRILE/ CXR STILL WITH LLL ATELECTASIS AND PLEURAL EFFUSION/ PAIN DECREASED/ IMPROVING BUT STILL MAY NEED VATS TO PREVENT ENTRAPMENT 04/08/17 08:52 REMAINS AFEBRILE BUT MORE SOB/ BS DECREASED ON THE LEFT BASE/ COR RR/ ABD SOFT/ WBC 15K/ PRODUCTIVE COUGH CT PENDING TO EVAL EMPYEMA/ MAY NEED VATS 04/08/17 17:[address] to tolerate chest ct/ will proceed with vats/ risks and options fully discussed 04/12/17 10:09 afebrile/ minimal drainage/ wound ok/ cxr pending Objective: Vital Signs Temp Pulse Resp BP Pulse Ox 36.6 C 70 16 133/85 H 91 L 04/12/17 08:45 04/12/17 08:45 04/12/17 08:45 04/12/17 08:45 04/12/17 08:45 Microbiology 04/08/17 17:38 Gram Stain - Final Pleural Fluid - Aspirate Laboratory Results 04/12/17 05:45 04/12/17 05:45 04/11/17 04/12/17 04/13/17 05:59 05:59 05:59 Intake Total 650 600 Output Total 532 903 300 Balance 118 -303 -300 PT 16.3 SEC (12.0-15.0) H 04/04/17 21:00 INR 1.31 (0.83-1.16) H 04/04/17 21:00 ICD10 Worksheet Patient Problems: Problems Problem Status Onset Community acquired pneumonia Acute Empyema Acute Sepsis Acute Chronic obstructive lung disease Active Clostridium difficile infection Active 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
--- NOTE | 2017-04-12 10:21 | SOAPPROG ---
SOAP Progress Note Assessment/Plan: Assessment/Plan: 81 Y F s/p VATS for PNA, empyema. No air leak. Drainage down. CXR marginal. O2 needs still high. Discussed with Dr. Walker. Continue chest tube for now. S: oob in chair. some discomfort with tubes but overall feeling better she says. O: alert, nad, nontoxic appearing no wob, no air leak 04/12/17 10:21 Objective: Vital Signs Temp Pulse Resp BP Pulse Ox 36.6 C 70 16 133/85 H 91 L 04/12/17 08:45 04/12/17 08:45 04/12/17 08:45 04/12/17 08:45 04/12/17 08:45 Microbiology 04/08/17 17:38 Gram Stain - Final Pleural Fluid - Aspirate Laboratory Results 04/12/17 05:45 04/12/17 05:45 04/11/17 04/12/17 04/13/17 05:59 05:59 05:59 Intake Total 650 600 Output Total 532 903 300 Balance 118 -303 -300 PT 16.3 SEC (12.0-15.0) H 04/04/17 21:00 INR 1.31 (0.83-1.16) H 04/04/17 21:00 ICD10 Worksheet Patient Problems: Problems Problem Status Onset Community acquired pneumonia Acute Empyema Acute Sepsis Acute Chronic obstructive lung disease Active Clostridium difficile infection Active 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
[2017-04-12] MEDS: FLUTICASONE HFA 220 MCG MDI IH SCH ×2 (11:09→21:16)
--- NOTE | 2017-04-12 12:10 | PCMIDPN ---
Assessment/Plan: 1. Strep intermedius empyema status post VATS with decortication and resection of left lower lobe abscess: This infection is undoubtedly coming from an odontogenic source. Please see # 2. Will continue Unasyn as is for now, especially in the setting of a possible apical or periapical abscess. blood cultures have been negative. 2.Carious/fractured teeth (uppers) with possible apical or periapical abscess: I spoke with of oral surgery who will see the patient later today. She requested a maxillofacial CT without contrast, which I ordered. The patient is acutely tender in her upper gums. 3.Eosinophilia: Will repeat tomorrow. Check liver function tests. No evidence of drug rash or AIN. 04/12/17 12:12 Subjective: Patient is constipated. Denies nausea or vomiting or abdominal pain. Feels that she is getting enough air but once the chest tube out as soon as possible. Objective: Unasyn 3 g IV q.6 hours day 7. 94% on 8 L Afebrile Vital Signs Temp Pulse Resp BP Pulse Ox 36.6 C 79 14 133/85 H 94 04/12/17 08:45 04/12/17 11:10 04/12/17 11:10 04/12/17 08:45 04/12/17 11:10 Microbiology 04/08/17 17:38 Gram Stain - Final Pleural Fluid - Aspirate Laboratory Results 04/12/17 05:45 04/12/17 05:45 04/11/17 04/12/17 04/13/17 05:59 05:59 05:59 Intake Total 650 600 Output Total 294 183 8903 Balance 118 -303 -1025 VATS cultures with 2+ Streptococcus intermedius Blood cultures negative Sputum culture on April 05 with 3+ Miranda albicans - Physical Exam General Appearance: alert, no apparent distress EENT: poor dentition, other ( Significant gingivitis with gingival hypertrophy and erythema. Carious and fractured teeth. Multiple missing teeth. Remaining fractured teeth are very tender.) Respiratory: crackles ( Left base. Chest tube in place.) Cardiac/Chest: regular rate, rhythm Abdomen: non-tender, soft Skin: No embolic lesions ICD10 Worksheet Patient Problems: Problems Problem Status Onset Community acquired pneumonia Acute Empyema Acute Sepsis Acute Chronic obstructive lung disease Active Clostridium difficile infection Active 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
--- NOTE | 2017-04-12 16:23 | HOSPPROG ---
Hospitalist Progress Note Assessment/Plan: 81 yo f w tobacco use, L sided pneumonia and empyema empyema: s/p VATS w chest tube cxr in AM pneumonia: pleural fluid w strep intermedius on unasyn poor dentition: CT w no abscess, per report tobacco use: counselled cessation proph: lmwh dispo: inpt Subjective: case d/w dr cisneros. yesterday's cxr w L sided infiltrate and chest tubes Objective: Vital Signs Temp Pulse Resp BP Pulse Ox 36.9 C 79 12 126/71 H 99 04/12/17 15:12 04/12/17 15:44 04/12/17 15:44 04/12/17 15:12 04/12/17 15:44 Microbiology 04/08/17 17:38 Gram Stain - Final Pleural Fluid - Aspirate Laboratory Results 04/12/17 05:45 04/12/17 05:45 04/11/17 04/12/17 04/13/17 05:59 05:59 05:59 Intake Total 650 600 Output Total 785 473 6763 Balance 118 -303 -1025 PT 16.3 SEC (12.0-15.0) H 04/04/17 21:00 INR 1.31 (0.83-1.16) H 04/04/17 21:00 - Physical Exam Constitutional: no apparent distress, appears nourished Eyes: PERRL, anicteric sclera Ears, Nose, Mouth, Throat: moist mucous membranes, hearing normal Cardiovascular: regular rate and rhythym, no murmur, rub, or gallop Respiratory: other (rhoncorous anterolat L>R) Gastrointestinal: normoactive bowel sounds, soft, non-tender abdomen Genitourinary: No turner in urethra Skin: warm, normal color Musculoskeletal: full muscle strength, no muscle tenderness Neurologic: AAOx3 Psychiatric: interacting appropriately, not anxious ICD10 Worksheet Patient Problems: Problems Problem Status Onset Community acquired pneumonia Acute Empyema Acute Sepsis Acute Chronic obstructive lung disease Active Clostridium difficile infection Active 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
[2017-04-12] MEDS: PRAVASTATIN SODIUM 20 MG TAB PO SCH (18:32)
[2017-04-12 18:58] LABS: POTASSIUM 3.4 mEq/L (3.5-5.2)
[2017-04-12] MEDS: guaiFENesin/CODEINE PHOS 10 ML UDCUP PO PRN (21:09)
[2017-04-12] MEDS: clonazePAM 0.5 MG TAB PO PRN (21:10)
[2017-04-12] MEDS: GABAPENTIN 400 MG CAP PO SCH (21:10)
[2017-04-12] MEDS: oxyCODONE IR 5 MG TAB PO PRN (21:10)
--- NOTE | 2017-04-12 22:08 | GCON ---
[f rep st] [facility]SULT[facility] Corrected report DATE OF ADMISSION: 04/04/2017 HISTORY OF PRESENT ILLNESS: The patient is a 81-year-old female who presented on April 04 for persistent left shoulder and chest pain. She was found to have a left lower lobe pneumonia and empyema, and on 04/08 underwent a VATS with left empyema drainage, decortication/resection of a left lower lobe abscess , and chest tube placement. Cultures reveal S intermedius and she remains O2 dependent. OMFS was consulted for dental extractions. The patient currently endorses several broken teeth and difficulty eating. She endorsed a past history of loose dental work and swelling of the left upper jaw but resolution without antibiotic treatment. PAST MEDICAL HISTORY: COPD, hypothyroidism, pulmonary hypertension, hyperlipidemia, aspiration pneumonia, retroperitoneal fibrosis with hydroureter. MEDICATIONS: See MAR ALLERGIES: Iodine and iodinated contrast material. SURGICAL HISTORY: Thyroid surgery, ureteral stent placement and foot surgery. FAMILY HISTORY: Mother with DM. 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 She lives in [place] with her . PHYSICAL EXAM: VITAL SIGNS: 69 kg, BMI 25. Blood pressure is 121/77, heart rate is 79, respiratory rate is 14 and she is saturating at 90% on 10 L of oxygen per minute. Temperature is 36.5. GENERAL: The patient is resting comfortably in bed, NAD, no midfacial or lower facial edema or asymmetry, CN II- XII grossly intact, YANELIS 30 mm, MP I, partially edentulous with root tips #3-5, 7 , 8, 13-15, 20, #6 and #9-11 bridge +1 mobile, no vestibular edema or erythema, floor of mouth soft, uvula midline, OP clear, non tender to palpation. IMAGING: CT of the maxillofacial region correlates with the clinical exam of nonrestorable dentition, although radiology has very zealously numbered the dentition, which mars the image. LABS: Reviewed. ASSESSMENT/PLAN: Chronic severe periodontal disease, non-restorable carious root tips. Although extractions recommended, her presentation is not acute. -scheduled for extractions of #3-9, 11, 13-15, 20 under MAC on 04/14 (Wednesday) in early afternoon -NPO at 6 am on 04/14 (Wednesday) -hold Lovenox 04/14 (Wednesday) at 11 am, do not resume until 04/15 () at 11 am -start chlorhexidine mouthrinse BID; if aspiration risk have pt dip toothbrush and brush BID only -continue Unasyn -will follow /[id number]/MODL [place] WT, 04/13/17, [place] T[place]
[2017-04-12] MEDS ORDERED: POTASSIUM CL 10 MEQ TAB PO ONE (23:40)
[2017-04-13] MEDS: AMPICILLIN/SULBACTAM 3 GM in NS 100 ML IV SCH ×4 (00:44→17:36)
[2017-04-13] MEDS: LEVOTHYROXINE 112 MCG TAB PO SCH (05:19)
[2017-04-13] MEDS: IPRATROPIUM/ALBUTEROL 3 ML DEYVIAL IH SCH ×4 (05:29→20:36)
[2017-04-13 06:23] LABS: % IMMATURE GRANULYOCYTES 0.4 % (0.0-1.1); ABSOLUTE IMMATURE GRANULOCYTES 0.04 10^3/uL (0.00-0.10); ADD DIFF? NO; ADD MORPH? NO; ADD SCAN? NO; ATYPICAL LYMPHOCYTE FLAG 80 (0-99); FRAGMENT RBC FLAG 10 (0-99); HEMATOCRIT 27.2 % (38.0-47.0); HEMOGLOBIN 9.3 g/dL (12.6-16.3); LEFT SHIFT FLG 0 (0-99); LIPEMIA HEMOLYSIS FLAG 90 (0-99); MEAN CELL HEMOGLOBIN 29.5 pg (27.9-34.1); MEAN CELL HEMOGLOBIN CONCENTR. 34.2 g/dL (32.4-36.7); MEAN CELL VOLUME 86.3 fL (81.5-99.8); MEAN PLATELET VOLUME 10.3 fL (8.7-11.7); PLATELET CLUMPS FLAG 0 (0-99); PLATELET COUNT 372 10^3/uL (150-400); RED BLOOD CELL COUNT 3.15 10^6/uL (4.18-5.33); RED CELL DISTRIBUTION WIDTH 15.4 % (11.5-15.2)
[2017-04-13 06:49] LABS: ALANINE AMINOTRANSFERASE 46 IU/L (9-52); ALBUMIN 2.2 g/dL (3.5-5.0); ALKALINE PHOSPHATASE 85 IU/L (38-126); ANION GAP 8 mEq/L (8-16); ASPARTATE AMINOTRANSFERASE 63 IU/L (14-46); BILIRUBIN,TOTAL 0.6 mg/dL (0.1-1.4); CALCIUM 7.2 mg/dL (8.5-10.4); CARBON DIOXIDE 35 mEq/l (22-31); CHLORIDE 96 mEq/L (97-110); CREATININE 0.6 mg/dL (0.6-1.0); GLOMERULAR FILTRATION RATE > 60; GLUCOSE 88 mg/dL (70-100); POTASSIUM 3.7 mEq/L (3.5-5.2); SODIUM 139 mEq/L (134-144); TOTAL PROTEIN 4.9 g/dL (6.3-8.2)
[2017-04-13] MEDS ORDERED: POTASSIUM CL 10 MEQ TAB PO ONE (07:37)
[2017-04-13] MEDS: DULoxetine 60 MG CAP PO SCH (08:17)
[2017-04-13] MEDS: SENNOSIDES/DOCUSATE SODIUM TAB PO SCH ×2 (08:17→20:23)
[2017-04-13] MEDS: ENOXAPARIN 40 MG/0.4 ML SYR SC SCH (08:18)
[2017-04-13] MEDS: guaiFENesin 600 MG TAB.ER PO SCH ×2 (08:18→20:21)
[2017-04-13] MEDS: NICOTINE 21 MG/24 HR PATCH TD SCH (08:19)
--- NOTE | 2017-04-13 09:03 | SOAPPROG ---
SOAP Progress Note Assessment/Plan: Assessment/Plan: 81 Y F s/p VATS for PNA, empyema. Removed chest tubes. Patient tolerated this well. Plan for CXR later this afternoon. S: No complaints. Resting in bed watching the news. Denies SOB. O2 mask on. O: alert, nad, nontoxic appearing no wob, no air leak wounds cdi 04/13/17 09:02 Objective: Vital Signs Temp Pulse Resp BP Pulse Ox 36.6 C 71 18 123/79 H 97 04/13/17 08:00 04/13/17 08:00 04/13/17 08:00 04/13/17 08:00 04/13/17 08:00 Microbiology 04/08/17 17:38 Gram Stain - Final Pleural Fluid - Aspirate Laboratory Results 04/13/17 05:56 04/13/17 05:56 04/12/17 04/13/17 04/14/17 05:59 05:59 05:59 Intake Total 600 1048 Output Total 903 2738 300 Balance -303 -1690 -300 PT 16.3 SEC (12.0-15.0) H 04/04/17 21:00 INR 1.31 (0.83-1.16) H 04/04/17 21:00 ICD10 Worksheet Patient Problems: Problems Problem Status Onset Community acquired pneumonia Acute Empyema Acute Sepsis Acute Chronic obstructive lung disease Active Clostridium difficile infection Active 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
[2017-04-13] MEDS: FLUTICASONE HFA 220 MCG MDI IH SCH ×2 (12:10→20:37)
[2017-04-13] MEDS: fentaNYL 50 MCG PATCH TD SCH (12:22)
--- NOTE | 2017-04-13 13:27 | PCMIDPN ---
Assessment/Plan: 1. Strep intermedius empyema status post VATS with decortication and resection of left lower lobe abscess: Chest tube has been removed! Continue Unasyn for now, with plans to transition to ertapenem moving closer to discharge. I do feel that she needs anaerobic coverage in the setting of her severe odontogenic disease. 2.Carious/fractured teeth (uppers) with possible apical or periapical abscess: Dr. Davis's care greatly appreciated. The patient will have 13 teeth extracted tomorrow morning. Subjective: Tearful. Happy to have her teeth removed in the morning. Tells me "I had a bad dentist." Constipated with no BM in 5 days. No nausea or vomiting. Happy to have the chest tube out. Objective: Unasyn 3 g IV q.6 hours day 8. Afebrile Vital Signs Temp Pulse Resp BP Pulse Ox 36.6 C 74 20 123/79 H 95 04/13/17 08:00 04/13/17 12:10 04/13/17 12:10 04/13/17 08:00 04/13/17 12:10 Microbiology 04/08/17 17:38 Gram Stain - Final Pleural Fluid - Aspirate Laboratory Results 04/13/17 05:56 04/13/17 05:56 04/12/17 04/13/17 04/14/17 05:59 05:59 05:59 Intake Total 600 1048 Output Total 903 2738 700 Balance -303 -1690 -700 Pleural fluid with Streptococcus intermedius - Physical Exam General Appearance: alert, no apparent distress EENT: poor dentition Respiratory: crackles (Left base) Cardiac/Chest: regular rate, rhythm, systolic murmur (Very faint right lower sternal border) Skin: No rash, No embolic lesions ICD10 Worksheet Patient Problems: Problems Problem Status Onset Community acquired pneumonia Acute Empyema Acute Sepsis Acute Chronic obstructive lung disease Active Clostridium difficile infection Active 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
--- NOTE | 2017-04-13 15:39 | HOSPPROG ---
Hospitalist Progress Note Assessment/Plan: 81 yo f w tobacco use, L sided pneumonia and empyema empyema: s/p VATS w chest tube chest tube out on unasyn poor dentition: tooth extraction in AM pneumonia: pleural fluid w strep intermedius on unasyn poor dentition: CT w no abscess, per report tobacco use: counselled cessation proph: lmwh dispo: inpt Subjective: case d/w dr cisneros. cxr: L airpspace disease and chest tubes out ( interp by me) Objective: Vital Signs Temp Pulse Resp BP Pulse Ox 36.6 C 74 20 123/79 H 95 04/13/17 08:00 04/13/17 12:10 04/13/17 12:10 04/13/17 08:00 04/13/17 12:10 Microbiology 04/08/17 17:38 Gram Stain - Final Pleural Fluid - Aspirate Laboratory Results 04/13/17 05:56 04/13/17 05:56 04/12/17 04/13/17 04/14/17 05:59 05:59 05:59 Intake Total 600 1048 Output Total 903 2738 700 Balance -303 -1690 -700 PT 16.3 SEC (12.0-15.0) H 04/04/17 21:00 INR 1.31 (0.83-1.16) H 04/04/17 21:00 - Physical Exam Constitutional: no apparent distress, appears nourished Eyes: PERRL, anicteric sclera Ears, Nose, Mouth, Throat: moist mucous membranes, hearing normal Cardiovascular: regular rate and rhythym, no murmur, rub, or gallop Respiratory: other (rhoncorous L>R) Gastrointestinal: normoactive bowel sounds, soft, non-tender abdomen Genitourinary: no bladder fullness, No turner in urethra Skin: warm, normal color Musculoskeletal: full muscle strength, no muscle tenderness Neurologic: AAOx3 Psychiatric: interacting appropriately, not anxious ICD10 Worksheet Patient Problems: Problems Problem Status Onset Community acquired pneumonia Acute Empyema Acute Sepsis Acute Chronic obstructive lung disease Active Clostridium difficile infection Active 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
[2017-04-13] MEDS: PRAVASTATIN SODIUM 20 MG TAB PO SCH (17:36)
[2017-04-13 18:44] LABS: POTASSIUM 3.9 mEq/L (3.5-5.2)
[2017-04-13] MEDS: GABAPENTIN 400 MG CAP PO SCH (20:21)
[2017-04-13] MEDS: oxyCODONE IR 5 MG TAB PO PRN (20:26)
[2017-04-13] MEDS: clonazePAM 0.5 MG TAB PO PRN (20:26)
[2017-04-14] MEDS: AMPICILLIN/SULBACTAM 3 GM in NS 100 ML IV SCH ×4 (00:13→18:09)
[2017-04-14] MEDS: oxyCODONE IR 5 MG TAB PO PRN ×2 (02:05→21:28)
[2017-04-14] MEDS: LEVOTHYROXINE 112 MCG TAB PO SCH (05:26)
[2017-04-14 06:01] LABS: POTASSIUM 3.6 mEq/L (3.5-5.2)
[2017-04-14] MEDS: IPRATROPIUM/ALBUTEROL 3 ML DEYVIAL IH SCH ×4 (06:04→20:44)
[2017-04-14] MEDS: ENOXAPARIN 40 MG/0.4 ML SYR SC SCH (07:45)
[2017-04-14] MEDS: FLUTICASONE HFA 220 MCG MDI IH SCH ×2 (08:43→20:42)
[2017-04-14] MEDS: NICOTINE 21 MG/24 HR PATCH TD SCH (09:24)
[2017-04-14] MEDS: SENNOSIDES/DOCUSATE SODIUM TAB PO SCH ×2 (09:29→21:29)
[2017-04-14] MEDS: DULoxetine 60 MG CAP PO SCH (09:29)
[2017-04-14] MEDS: guaiFENesin 600 MG TAB.ER PO SCH ×2 (09:29→21:28)
--- NOTE | 2017-04-14 10:22 | HOSPPROG ---
Hospitalist Progress Note Assessment/Plan: 81 yo f w tobacco use, L sided pneumonia and empyema empyema: s/p VATS w chest tube chest tube out on unasyn pleural fluid growing strep intermedius pneumonia: pleural fluid w strep intermedius on unasyn poor dentition: CT w no abscess, per report tooth extraction today tobacco use: counselled cessation proph: lmwh dispo: inpt will need SNF on dc Subjective: plan for surgery today for tooth extraction. feels well. case d/w dr sheriff, surgical MANISH ludwig Objective: Vital Signs Temp Pulse Resp BP Pulse Ox 36.4 C 68 18 130/76 H 96 04/14/17 08:25 04/14/17 08:48 04/14/17 08:48 04/14/17 08:25 04/14/17 08:48 Microbiology 04/08/17 17:38 Gram Stain - Final Pleural Fluid - Aspirate Laboratory Results 04/13/17 05:56 04/14/17 05:16 04/13/17 04/14/17 04/15/17 05:59 05:59 05:59 Intake Total 1048 700 Output Total 2738 2100 1700 Balance -1690 -1400 -1700 PT 16.3 SEC (12.0-15.0) H 04/04/17 21:00 INR 1.31 (0.83-1.16) H 04/04/17 21:00 - Physical Exam Constitutional: no apparent distress, appears nourished Eyes: PERRL, anicteric sclera Ears, Nose, Mouth, Throat: moist mucous membranes, hearing normal Cardiovascular: regular rate and rhythym Respiratory: no respiratory distress Gastrointestinal: normoactive bowel sounds, soft, non-tender abdomen Genitourinary: no bladder fullness, No turner in urethra Skin: warm, normal color Musculoskeletal: full muscle strength Neurologic: AAOx3 ICD10 Worksheet Patient Problems: Problems Problem Status Onset Community acquired pneumonia Acute Empyema Acute Sepsis Acute Chronic obstructive lung disease Active Clostridium difficile infection Active 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
[2017-04-14] MEDS ORDERED: BUPIVACAINE/EPI 0.5% 30 ML SDV ONE (11:34)
--- NOTE | 2017-04-14 13:06 | PCMIDPN ---
Assessment/Plan: # Strep intermedius empyema status post VATS with decortication and resection of left lower lobe abscess, chest tube out, WBC improved, 9 yesterday. AF. O2 requirements overall improved --continue Unasyn, tolerating w/o obvious complication --Likely able to transition to PO abx at dc # multiple dental cares : greatly appreciate dental assistance, extractions today. meds Unasyn 3 g IV q.6 hours day 9 Subjective: doing well, looking forward to procedure today Objective: Vital Signs Temp Pulse Resp BP Pulse Ox 36.4 C 68 18 130/76 H 96 04/14/17 08:25 04/14/17 08:48 04/14/17 08:48 04/14/17 08:25 04/14/17 08:48 Microbiology 04/08/17 17:38 Gram Stain - Final Pleural Fluid - Aspirate Laboratory Results 04/13/17 05:56 04/14/17 05:16 04/13/17 04/14/17 04/15/17 05:59 05:59 05:59 Intake Total 1048 700 Output Total 2738 2100 1700 Balance -1690 -1400 -1700 - Physical Exam General Appearance: alert, no apparent distress, non-toxic EENT: pale conjunctiva, poor dentition, No scleral icterus Respiratory: crackles (L 1/3) Neck: supple Cardiac/Chest: regular rate, rhythm Abdomen: non-tender, soft Skin: pallor, No rash Neuro/Psych: alert, normal mood/affect, oriented x 3 ICD10 Worksheet Patient Problems: Problems Problem Status Onset Community acquired pneumonia Acute Empyema Acute Sepsis Acute Chronic obstructive lung disease Active Clostridium difficile infection Active 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
[2017-04-14] MEDS ORDERED: PROPOFOL 200 MG/20 ML VIAL ONE ×2 (14:13→14:20)
[2017-04-14] MEDS ORDERED: fentaNYL 100 MCG/2 ML INJ ONE ×2 (14:13→16:37)
[2017-04-14] MEDS ORDERED: KETAMINE 100 MG/10 ML SYR ONE (14:13)
[2017-04-14] MEDS ORDERED: LIDOCAINE 1% 300 MG/30 ML SDV ONE (14:29)
[2017-04-14] MEDS ORDERED: LIDO/EPI 1% **Not for Epidural 20 ML MDV ONE (14:30)
[2017-04-14] MEDS ORDERED: PROPOFOL/EMULSION 500 MG/50 ML BOTTLE IV ONE (15:44)
--- NOTE | 2017-04-14 16:27 | POSTOPPROG ---
Post Op Note Date of Operation: 04/14/17 Surgeon: Annemarie Davis Field Project Manager: n/a Anesthesiologist: Andrade Gomez Anesthesia: IV Sedation, Other (Specify) (MAC) Pre-op Diagnosis: periodontal disease, caries,retained root tips Post-op Diagnosis: same Indication: non-restorable dentition Procedure: extraction of teeth #3-9, 11, 13-15, 20 Findings: non-restorable teeth Inf/Abcess present in the surg proc area at time of surgery?: No EBL: Minimal Total fluids administered: see Anesthesia record Complications: none Drains: Other (none)
[2017-04-14] MEDS ORDERED: HYDROmorphONE/DILAUDID 1 MG/ML SYR ONE (16:37)
[2017-04-14 18:19] LABS: POTASSIUM 3.6 mEq/L (3.5-5.2)
[2017-04-14] MEDS: PRAVASTATIN SODIUM 20 MG TAB PO SCH (19:51)
[2017-04-14] MEDS: GABAPENTIN 400 MG CAP PO SCH (21:29)
--- NOTE | 2017-04-14 22:01 | GOP ---
[f rep st] [facility] OPERATIVE REPORT DATE OF OPERATION: 04/14/2017 SURGEON: rPiyanka Davis DDS, MD ANESTHESIA: MAC. PREOPERATIVE DIAGNOSIS: Periodontal disease, retained root tips. POSTOPERATIVE DIAGNOSIS: Periodontal disease, retained root tips. PROCEDURE PERFORMED: Extraction of teeth #3-9, 11, 13-15, and 20. FINDINGS: non-restorable dentition ESTIMATED BLOOD LOSS: Minimal. DRAINS: none CULTURES: none URINE OUTPUT: non-recorded DISPOSITION: floor INDICATIONS: The patient is a 81-year-old female who was admitted and treated for an empyema/left lower lobe pneumonia with decortication and chest tube placement. Cultures revealed Streptococcus intermedius and in conjunction with IV antibiotics OMFS was consulted for an odontogenic source. On examination she had 12 retained roots that were carious with surrounding severe periodontal disease. Risks, benefits and complications were explained to the patient and she consented for extraction of these teeth. DESCRIPTION OF PROCEDURE: The patient was correctly identified in the preoperative holding area and transported to the OR 5. She was transferred to the bed in a supine position where all ASA monitors were attached. Under MAC she was draped in the usual fashion. A time-out was performed where all members of the team were in agreement of the procedure. 9 cc of 1% lidocaine with 1:100, 000 epinephrine and 5 cc of 0.5% marcaine with 1:200,000 epinephrine was given to bilateral ASA/MSA/PSA/greater palatine nerves as well as the nasopalatine and left buccal/mental/lingual nerves. The oral cavity was brushed with chlorhexidine, suctioned, and a throat pack was placed. A releasing incision was performed for #3, a full-thickness mucoperiosteal flap was developed, and the tooth was sectioned, elevated, and delivered. For teeth #4-9, 11, 13-15, and 20 the gingival cuffs were released and the teeth were elevated and delivered atraumatically. All sockets were curettaged and irrigated with normal saline. Gelfoam and Surgicel were placed in each socket, and the sites were closed with running and interrupted 3-0 chromic gut sutures. Non-count gauze and umbilical tape were used as intraoral pressure dressings bilaterally. She was awakened, transferred to her usual bed, and taken to PACU in the care of her surgical team. /[id number]/MODL BUSHRA
[2017-04-15] MEDS: AMPICILLIN/SULBACTAM 3 GM in NS 100 ML IV SCH ×5 (00:11→23:52)
[2017-04-15] MEDS: ACETAMINOPHEN 325 MG TAB PO PRN ×3 (00:11→22:55)
[2017-04-15] MEDS: HYDROmorphONE/DILAUDID 1 MG/ML SYR IVP PRN (00:18)
[2017-04-15] MEDS: IPRATROPIUM/ALBUTEROL 3 ML DEYVIAL IH SCH ×4 (05:11→20:50)
[2017-04-15] MEDS: LEVOTHYROXINE 112 MCG TAB PO SCH (05:29)
[2017-04-15] MEDS: oxyCODONE IR 5 MG TAB PO PRN ×4 (05:29→21:04)
[2017-04-15 06:30] LABS: POTASSIUM 3.6 mEq/L (3.5-5.2)
[2017-04-15] MEDS: CHLORHEXIDINE GLUCONATE 15 ML UDL PO SCH ×2 (08:48→21:05)
[2017-04-15] MEDS: SENNOSIDES/DOCUSATE SODIUM TAB PO SCH ×2 (08:48→20:58)
[2017-04-15] MEDS: guaiFENesin 600 MG TAB.ER PO SCH ×2 (08:49→21:02)
[2017-04-15] MEDS: DULoxetine 60 MG CAP PO SCH (08:49)
[2017-04-15] MEDS: ENOXAPARIN 40 MG/0.4 ML SYR SC SCH (08:52)
[2017-04-15] MEDS: NICOTINE 21 MG/24 HR PATCH TD SCH (08:52)
--- NOTE | 2017-04-15 09:08 | SOAPPROG ---
SOAP Progress Note Assessment/Plan: Assessment: 81yo female s/p VATS, mini thoracotomy for empyema, surgery yesterday for teeth extraction, PNA. Thankful for surgery, pain well controlled, no SOB. PE awake, alert, very comfortable Chest Left chest tube site dry Ht RRR Plan: saw pt with Dr Walker 04/09/17 12:10 04/15/17 09:05 Objective: Vital Signs Temp Pulse Resp BP Pulse Ox 36.3 C 71 14 138/79 H 94 04/15/17 04:01 04/15/17 05:11 04/15/17 05:11 04/15/17 04:01 04/15/17 05:11 Microbiology 04/08/17 17:38 Gram Stain - Final Pleural Fluid - Aspirate Laboratory Results 04/13/17 05:56 04/15/17 05:46 04/14/17 04/15/17 04/16/17 05:59 05:59 05:59 Intake Total 700 900 Output Total 2100 4280 Balance -1400 -3380 PT 16.3 SEC (12.0-15.0) H 04/04/17 21:00 INR 1.31 (0.83-1.16) H 04/04/17 21:00 ICD10 Worksheet Patient Problems: Problems Problem Status Onset Community acquired pneumonia Acute Empyema Acute Sepsis Acute Chronic obstructive lung disease Active Clostridium difficile infection Active 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
--- NOTE | 2017-04-15 09:38 | SOAPPROG ---
SOAP Progress Note Assessment/Plan: Assessment: 81 F WITH LLL PNA AND LOTS OF PAIN/ CT SUGGESTS EARLY EMPYEMA LOW GRADE TEMP/ DECREASED BS LLL/ ABD SOFT/ COR RR WBC 15K TOO EARLY TO DEFINITIVELY SAY ABOUT EMPYEMA Plan:WILL FOLLOW/ CONSIDER VATS IF WORSENING/ CONSIDER CHEST US 04/05/17 09:12 04/06/17 13:51 AFEBRILE AND MORE COMFORTABLE BUT CXR LOOKING WORSE/ WILL LIKELY NEED VATS/ WILL DISCUSS WITH PULMONARY 04/07/17 08:51 AFEBRILE/ CXR STILL WITH LLL ATELECTASIS AND PLEURAL EFFUSION/ PAIN DECREASED/ IMPROVING BUT STILL MAY NEED VATS TO PREVENT ENTRAPMENT 04/08/17 08:52 REMAINS AFEBRILE BUT MORE SOB/ BS DECREASED ON THE LEFT BASE/ COR RR/ ABD SOFT/ WBC 15K/ PRODUCTIVE COUGH CT PENDING TO EVAL EMPYEMA/ MAY NEED VATS 04/08/17 17:[address] chest ct/ will proceed with vats/ risks and options fully discussed 04/12/17 10:09 afebrile/ minimal drainage/ wound ok/ cxr pending 04/15/17 09:37 Doing well status post chest tube removal and lung decortication / afebrile/ wound okay/ breath sounds equal / hopefully home in 1-2 days Objective: Vital Signs Temp Pulse Resp BP Pulse Ox 36.4 C 77 16 117/72 89 L 04/15/17 08:00 04/15/17 08:00 04/15/17 08:00 04/15/17 08:00 04/15/17 08:00 Microbiology 04/08/17 17:38 Gram Stain - Final Pleural Fluid - Aspirate Laboratory Results 04/13/17 05:56 04/15/17 05:46 04/14/17 04/15/17 04/16/17 05:59 05:59 05:59 Intake Total 700 900 Output Total 2100 4280 Balance -1400 -3380 PT 16.3 SEC (12.0-15.0) H 04/04/17 21:00 INR 1.31 (0.83-1.16) H 04/04/17 21:00 ICD10 Worksheet Patient Problems: Problems Problem Status Onset Community acquired pneumonia Acute Empyema Acute Sepsis Acute Chronic obstructive lung disease Active Clostridium difficile infection Active 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
--- NOTE | 2017-04-15 10:29 | PCMIDPN ---
Assessment/Plan: Assessment: Likely aspiration pneumonia with empyema. Status post VATS. Streptococcus intermedius and culture which confirms the likelihood that this is an aspiration event that led to pneumonia empyema. Chest tubes removed. Plan to continue Unasyn. I am anticipating a 4 week post VATS course. Plan: 1. Continue Unasyn at current dose. 2. Follow clinical course. 04/15/17 18:23 Subjective: Patient remains weak and tired. Doing generally well however. No fevers. Energy and appetite remained decreased. Objective: Unasyn # 10 Vital Signs Temp Pulse Resp BP Pulse Ox 36.4 C 77 16 117/72 89 L 04/15/17 08:00 04/15/17 08:00 04/15/17 08:00 04/15/17 08:00 04/15/17 08:00 Microbiology 04/08/17 17:38 Gram Stain - Final Pleural Fluid - Aspirate Laboratory Results 04/13/17 05:56 04/15/17 05:46 04/14/17 04/15/17 04/16/17 05:59 05:59 05:59 Intake Total 700 900 Output Total 2100 4280 Balance -1400 -3380 - Physical Exam General Appearance: WD/WN, alert, no apparent distress, non-toxic Respiratory: lungs clear, normal breath sounds, No respiratory distress Cardiac/Chest: regular rate, rhythm, No tachycardia Skin: normal color, warm/dry, No rash Neuro/Psych: alert, normal mood/affect, oriented x 3 ICD10 Worksheet Patient Problems: Problems Problem Status Onset Community acquired pneumonia Acute Empyema Acute Sepsis Acute Chronic obstructive lung disease Active Clostridium difficile infection Active 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
--- NOTE | 2017-04-15 11:10 | SOAPPROG ---
SOAP Progress Note Assessment/Plan: Assessment: 81 y F with S. intermedius empyema/LLL PNA now 1 day s/p extraction of 12 non- restorable teeth, stable from OMFS standpoint. Discussed findings, post- operative course, and recommended follow-up with pt, all questions addressed. Plan: OMFS signing off, appreciate consult resume lovenox today, discussed with nursing staff this am continue chlorhexidine bid x 1 week encourage tobacco cessation abx per ID soft diet, advance as tolerated for comfort analgesics prn follow-up with Dr. Davis in clinic one week from discharge, either from [facility] or step -down facility 04/15/17 11:06 Subjective: no overnight events reported, pt tolerating PO intake, pain managed well this am Objective: Vital Signs Temp Pulse Resp BP Pulse Ox 36.4 C 77 16 117/72 89 L 04/15/17 08:00 04/15/17 08:00 04/15/17 08:00 04/15/17 08:00 04/15/17 08:00 Microbiology 04/08/17 17:38 Gram Stain - Final Pleural Fluid - Aspirate Laboratory Results 04/13/17 05:56 04/15/17 05:46 04/14/17 04/15/17 04/16/17 05:59 05:59 05:59 Intake Total 700 900 Output Total 2100 4280 Balance -1400 -3380 PT 16.3 SEC (12.0-15.0) H 04/04/17 21:00 INR 1.31 (0.83-1.16) H 04/04/17 21:00 mild mid-facial edema, CN II-XII grossly intact, YANELIS 20mm, sutures intact to edentulous ridge and #20 site, sockets hemostatic ICD10 Worksheet Patient Problems: Problems Problem Status Onset Community acquired pneumonia Acute Empyema Acute Sepsis Acute Chronic obstructive lung disease Active Clostridium difficile infection Active 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
[2017-04-15] MEDS: FLUTICASONE HFA 220 MCG MDI IH SCH ×2 (11:15→20:50)
[2017-04-15] MEDS ORDERED: fentaNYL 50 MCG PATCH TD SCH (12:20)
[2017-04-15] MEDS: POTASSIUM Cl (KCl) 100 ML IV SCH ×2 (13:14→13:15)
[2017-04-15] MEDS ORDERED: POTASSIUM CL 20 MEQ/15 ML UDCUP PO ONE (13:30)
[2017-04-15] MEDS ORDERED: NICOTINE 21 MG/24 HR PATCH TD SCH (14:27)
[2017-04-15] MEDS ORDERED: ALTEPLASE 2 MG VIAL IVP PRN (14:35)
--- NOTE | 2017-04-15 14:40 | HOSPPROG ---
Hospitalist Progress Note Assessment/Plan: 81 yo f w tobacco use, L sided pneumonia and empyema empyema: s/p VATS w chest tube chest tube out on unasyn pleural fluid growing strep intermedius picc line today pneumonia: pleural fluid w strep intermedius on unasyn poor dentition: CT w no abscess, per report tooth extraction yesterday continue chlorhexidine tobacco use: counselled cessation proph: [facility]mwh dispo: inpt PT rec snf Subjective: case d/w dr sheriff. mouth pain OK. taking soft po's Objective: Vital Signs Temp Pulse Resp BP Pulse Ox 36.8 C 75 14 152/87 H 90 L 04/15/17 11:59 04/15/17 11:59 04/15/17 11:59 04/15/17 11:59 04/15/17 11:59 Microbiology 04/08/17 17:38 Gram Stain - Final Pleural Fluid - Aspirate Anaerobic Culture - Final Streptococcus Intermedius Laboratory Results 04/13/17 05:56 04/15/17 05:46 04/14/17 04/15/17 04/16/17 05:59 05:59 05:59 Intake Total 700 900 550 Output Total 2100 4280 1150 Balance -1400 -3380 -600 PT 16.3 SEC (12.0-15.0) H 04/04/17 21:00 INR 1.31 (0.83-1.16) H 04/04/17 21:00 ICD10 Worksheet Patient Problems: Problems Problem Status Onset Community acquired pneumonia Acute Empyema Acute Sepsis Acute Chronic obstructive lung disease Active Clostridium difficile infection Active 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
[2017-04-15] MEDS: PRAVASTATIN SODIUM 20 MG TAB PO SCH (18:13)
[2017-04-15] MEDS: GABAPENTIN 400 MG CAP PO SCH (21:01)
[2017-04-16 04:55] LABS: % IMMATURE GRANULYOCYTES 0.6 % (0.0-1.1); ABSOLUTE IMMATURE GRANULOCYTES 0.06 10^3/uL (0.00-0.10); ADD DIFF? NO; ADD MORPH? NO; ADD SCAN? NO; ATYPICAL LYMPHOCYTE FLAG 0 (0-99); FRAGMENT RBC FLAG 0 (0-99); HEMATOCRIT 28.2 % (38.0-47.0); HEMOGLOBIN 9.3 g/dL (12.6-16.3); LEFT SHIFT FLG 10 (0-99); LIPEMIA HEMOLYSIS FLAG 80 (0-99); MEAN CELL HEMOGLOBIN 29.2 pg (27.9-34.1); MEAN CELL VOLUME 88.7 fL (81.5-99.8); MEAN PLATELET VOLUME 9.3 fL (8.7-11.7); PLATELET CLUMPS FLAG 0 (0-99); PLATELET COUNT 564 10^3/uL (150-400); RED BLOOD CELL COUNT 3.18 10^6/uL (4.18-5.33); RED CELL DISTRIBUTION WIDTH 15.1 % (11.5-15.2)
[2017-04-16 05:10] LABS: ANION GAP 6 mEq/L (8-16); CALCIUM 6.9 mg/dL (8.5-10.4); CARBON DIOXIDE 35 mEq/l (22-31); CHLORIDE 96 mEq/L (97-110); CREATININE 0.6 mg/dL (0.6-1.0); GLOMERULAR FILTRATION RATE > 60; GLUCOSE 84 mg/dL (70-100); POTASSIUM 3.4 mEq/L (3.5-5.2); SODIUM 137 mEq/L (134-144)
[2017-04-16] MEDS: IPRATROPIUM/ALBUTEROL 3 ML DEYVIAL IH SCH ×3 (05:42→15:30)
[2017-04-16] MEDS: AMPICILLIN/SULBACTAM 3 GM in NS 100 ML IV SCH ×2 (06:01→13:40)
[2017-04-16] MEDS: LEVOTHYROXINE 112 MCG TAB PO SCH (06:01)
[2017-04-16] MEDS ORDERED: PROTOCOL CALCIUM 1 DOSE IV PRN (08:30)
[2017-04-16] MEDS: guaiFENesin 600 MG TAB.ER PO SCH (09:57)
[2017-04-16] MEDS: DULoxetine 60 MG CAP PO SCH (09:58)
[2017-04-16] MEDS: CHLORHEXIDINE GLUCONATE 15 ML UDL PO SCH (09:58)
[2017-04-16] MEDS: ENOXAPARIN 40 MG/0.4 ML SYR SC SCH (09:58)
[2017-04-16] MEDS: SENNOSIDES/DOCUSATE SODIUM TAB PO SCH (09:58)
[2017-04-16] MEDS: oxyCODONE IR 5 MG TAB PO PRN (11:04)
[2017-04-16] MEDS: FLUTICASONE HFA 220 MCG MDI IH SCH (11:08)
[2017-04-16] MEDS ORDERED: NICOTINE 14 MG/24 HR PATCH TD SCH (12:30)
[2017-04-16] MEDS ORDERED: ERTAPENEM 1 GM in NS 100 ML IV ONE (13:30)
[2017-04-16] MEDS ORDERED: ERTAPENEM 1 GM in NS 100 ML IV SCH (13:30)
--- NOTE | 2017-04-16 13:30 | PDIAF ---
- Diagnosis Diagnosis: empyema Code Status: Full Code - Medication Management Discharge Medications: Medications to Continue on Transfer Baclofen [Baclofen 10 mg (*)] 10 mg PO BID PRN 07/13/12 [Last Taken 07/12/12] DULoxetine [Cymbalta 60 MG (*)] 120 mg PO DAILY 05/23/14 [Last Taken 04/03/17] Simvastatin [Zocor 10 mg] 10 mg PO DAILY18 05/23/14 [Last Taken 04/02/17] fentaNYL [Duragesic 50 MCG Patch (*)] 50 mcg TD Q48H 04/20/16 [Last Taken ] Acetaminophen [Tylenol 325mg (*)] 325 mg PO DAILY PRN 04/05/17 [Last Taken Unknown] Gabapentin [Neurontin 400 MG (*)] 800 mg PO HS 04/05/17 [Last Taken 04/02/17] Levothyroxine [Synthroid 112 mcg (*)] 112 mcg PO DAILY06 04/05/17 [Last Taken ] clonazePAM [Klonopin (*)] 0.5 mg PO DAILY PRN 04/05/17 [Last Taken Unknown] Furnace Maintenance Antibiotics: ertapenem 1 g IV daily Furnace Maintenance Antibiotic Stop Date: 04/29/17 Discharge Medications: Refer to the Discharge Home Medication list for PRN reason. PICC Care - Routine: Yes - Orders Diet Texture: Regular Texture Diet, Thin Liquids, Meds Whole w/Liquids, Meds Whole in Puree - Labs/Radiology CBC Date: 04/21/17 ( fax to Dr. Robson Talavera [phone]) CMP Date: 04/21/17 ( fax to Dr. Robson Talavera [phone]) - Follow Up Care Current Providers and Referrals: FRANCISCO MITCHELL [Other] - As per Instructions Annemarie Davis MD [Medical Doctor] - Robson Talavera MD [Medical Doctor] - ( patient has an appointment to see Dr. Robson Talavera at the [facility] for Infectious Diseases April 28 at 2:00 p.m.)
--- NOTE | 2017-04-16 13:38 | PCMIDPN ---
Assessment/Plan: 1. Strep intermedius empyema status post VATS with decortication and resection of left lower lobe abscess: Patient can go home today on ertapenem. Will give her the 1st dose of this antibiotic today and continue for at least 3 weeks intravenously. She will see Dr. Talavera on April 28 at 2:00 p.m. 2.Carious/fractured teeth (uppers) with possible apical or periapical abscess: Dr. Davis's care greatly appreciated. Status post extraction of 13 teeth Without complications. 04/16/17 13:42 Subjective: "I feel much better." Patient is eager to go home. No diarrhea, nausea or vomiting. Objective: Unasyn 3 g IV q.6 hours Afebrile Vital Signs Temp Pulse Resp BP Pulse Ox 37.2 C 71 14 123/73 H 93 04/16/17 13:09 04/16/17 13:09 04/16/17 13:09 04/16/17 13:09 04/16/17 13:09 Microbiology 04/08/17 17:38 Gram Stain - Final Pleural Fluid - Aspirate Anaerobic Culture - Final Streptococcus Intermedius Laboratory Results 04/16/17 04:34 04/16/17 04:34 04/15/17 04/16/17 04/17/17 05:59 05:59 05:59 Intake Total 900 1250 300 Output Total 4280 1150 Balance -3380 100 300 no new microbiology - Physical Exam General Appearance: alert, no apparent distress EENT: No pharynx normal ( gums at site of dental extractions look fine. Some suture material in place.) Respiratory: other ( Decreased breath sounds left base, otherwise clear. Minimal wheezing.) Cardiac/Chest: regular rate, rhythm Skin: No rash ICD10 Worksheet Patient Problems: Problems Problem Status Onset Community acquired pneumonia Acute Empyema Acute Sepsis Acute Chronic obstructive lung disease Active Clostridium difficile infection Active 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
[2017-04-16] MEDS: ACETAMINOPHEN 325 MG TAB PO PRN (13:44)
--- NOTE | 2017-04-16 14:17 | PDIAF ---
- Diagnosis Diagnosis: empyema Code Status: Full Code - Medication Management Discharge Medications: Medications to Continue on Transfer Baclofen [Baclofen 10 mg (*)] 10 mg PO BID PRN 07/13/12 [Last Taken 07/12/12] DULoxetine [Cymbalta 60 MG (*)] 120 mg PO DAILY 05/23/14 [Last Taken 04/03/17] Simvastatin [Zocor 10 mg] 10 mg PO DAILY18 05/23/14 [Last Taken 04/02/17] fentaNYL [Duragesic 50 MCG Patch (*)] 50 mcg TD Q48H 04/20/16 [Last Taken ] Acetaminophen [Tylenol 325mg (*)] 325 mg PO DAILY PRN 04/05/17 [Last Taken Unknown] Gabapentin [Neurontin 400 MG (*)] 800 mg PO HS 04/05/17 [Last Taken 04/02/17] Levothyroxine [Synthroid 112 mcg (*)] 112 mcg PO DAILY06 04/05/17 [Last Taken ] clonazePAM [Klonopin (*)] 0.5 mg PO DAILY PRN 04/05/17 [Last Taken Unknown] Acetaminophen [Tylenol 325mg (*)] 650 mg PO Q4HRS PRN #0 tab 04/16/17 [Last Taken Unknown] Fluticasone Hfa 220 Mcg [Flovent 220 MCG Hfa MDI (*)] 1 puffs IH BID #1 mdi [Last Taken Unknown] Nicotine Polacrilex [Nicorette gum (*)] 2 mg B Q1HR PRN #30 gum 04/16/17 [Last Taken Unknown] Sennosides/Docusate Sodium [Senokot-S] 1 - 2 tab PO BID #60 tab 04/16/17 [Last Taken Unknown] [facility] Antibiotics: ertapenem 1 g IV daily [employer]inder Antibiotic Stop Date: 04/29/17 Discharge Medications: Refer to the Discharge Home Medication list for PRN reason. PICC Care - Routine: Yes - Orders Services needed: Home Care, Registered Nurse, Physical Therapy, Occupational Therapy Home Care Face to Face: I certify that this patient was under my care and that I had the required [id number] encounter meeting the encounter requirements on the discharge day. My findings support the fact that the patient is homebound as defined in CMS Chapter 7 Medicare Benefits Manual 30.1.1, The condition of the patient is such that there exists a normal inability to leave home and consequently, leaving home would require a considerable and taxing effort. Oxygen: 4 LPM, follow up with PCP in 5-7 days to wean as able Diet Recommendation: other (soft diet per oral surgery recommendations) Diet Texture: Regular Texture Diet, Thin Liquids, Meds Whole w/Liquids, Meds Whole in Puree Wound Care Instructions: f/u with Dr. Davis in 1 week for suture removal - Labs/Radiology CBC Date: 04/21/17 ( fax to Dr. Robson Talavera [phone]) CMP Date: 04/21/17 ( fax to Dr. Robson Talavera [phone]) - Follow Up Care Current Providers and Referrals: FRANCISCO MITCHELL [Other] - As per Instructions Annemarie Davis MD [Medical Doctor] - Robson Talavera MD [Medical Doctor] - ( patient has an appointment to see Dr. Robson Talavera at the [facility] for Infectious Diseases April 28 at 2:00 p.m.)
[2017-04-16 14:53] LABS: IONIZED CALCIUM 0.86 MMOL/L (1.12-1.30)
[2017-04-16 16:15] VITALS: BP 114/63; PULSE 81; RESP 18; TEMP 97.3; O2SAT 92
--- NOTE | 2017-04-16 20:52 | GDS ---
[f rep st] DISCHARGE SUMMARY DISCHARGE DIAGNOSES: 1. Sepsis secondary to pneumonia. 2. Pneumonia with empyema secondary to Streptococcus intermedius, status post video-assisted thorac oscopic surgery with chest tube. 3. Periodontal disease and extensive caries, status post multiple tooth extractions. This is likel y the source of her Streptococcus intermedius. 4. Fodys-dm-lcmtuhx respiratory failure, baseline oxygen requirement is nocturnal only. She is dis charged on 4 L continuously. 5. Chronic obstructive pulmonary disease exacerbation, improved. 6. Tobacco use. Cessation was encouraged. 7. 4.2 cm thoracic aortic aneurysm, which will require outpatient followup. IMAGING STUDIES/PROCEDURES: 1. Chest CT, April 04, 2017, showed a left lower lobe pneumonia with findings consistent with possibl e early empyema and mild dilatation of the descending thoracic aorta at 4.2 cm. 2. Chest ultrasound, april 05, 2017, showed a small loculated effusion in the left lung base posterio rly. 3. Ultrasound-guided thoracentesis, April 06, 2017, with removal of 30 mL of yellowish, slightly opaq ue fluid. 4. Video-assisted thoracoscopic surgery drainage of an empyema with resection of the left lower lob e abscess and decortication on April 08, 2017, performed by Dr. Zhang Walker. 5. Chest x-ray, April 13, 2017, showed removal of 2 chest tubes on the left without pneumothorax and patchy airspace consolidation bilaterally with improved aeration in both upper lobes. 6. Extraction of 12 teeth secondary to periodontal disease and extensive dental caries, performed b y Dr. Annemarie Davis DDS, , on April 14, 2017. 7. PICC line insertion April 16, 2017. CONSULTANTS: 1. Dr. Zhang Walker, General Surgery. 2. Dr. Otoniel Mccallum, Pulmonology. 3. Dr. Robson Talavera, Infectious Disease. HISTORY: For details, please see the dictated History and Physical dated April 05, 2017, Dr. Robert valerio. In brief, this patient is a 81-year-old female with a history of tobacco abuse, COPD, and poor dentition, who presents to the emergency department with acute chest pain and shortness of breath a ssociated with cough. Workup revealed findings consistent with pneumonia with an associated empyema , and she was admitted to the hospital for further management. HOSPITAL COURSE: The patient was admitted to med-surg. She did meet criteria for sepsis on arrival with tachypnea, leukocytosis, and vrhig-dl-svbteqe respiratory failure. She was started on broad-s pectrum IV antibiotics. Blood cultures were negative. She underwent thoracentesis of her pleural f luid which ultimately grew Streptococcus intermedius. Given her empyema and need for prolonged anti biotics, Infectious Disease consult was obtained. A PICC line was placed. She was continued on ert apenem at discharge, which will be continued through April 29, 2017. She was also treated for an asso ciated COPD exacerbation. Her oxygen requirements have improved from 6 L/min down to 4 L/min. She uses nocturnal oxygen at home, though is discharged to continue 4 L of oxygen continuously during day, as well as nights. She will need close followup with her primary care to evaluate appropriat eness for weaning down her oxygen need. It was suspected that her Strep intermedius pneumonia and a ssociated empyema were secondary to an oral source. Due to her severe dental caries, Oral Surgery c steven was obtained, and she underwent 12 tooth extractions. Sutures are still present at the time of discharge. She is directed to continue a soft diet and will have followup with her oral surgeon in 1 week for suture removal and can have further diet instructions at that time. Physical Therapy and Occupational Therapy consults were obtained, and ultimately [facility] facility rehab was r ecommended; however, the patient refused rehab. Thus, she was discharged home with home health care . DISPOSITION: The patient is discharged home in stable condition with home health care, RT, and PT a nd OT. DISCHARGE MEDICATIONS: Please see poLight for complete updated outpatient medication list. New me dications on discharge include: 1. Ertapenem 1 g IV daily through April 29, 2017. 2. Tylenol 600 mg p.o. q.4 hours p.r.n. 3. Flovent 220 mcg inhaled twice daily. 4. Nicorette gum p.r.n. 5. Senokot 1 to 2 tabs p.o. twice daily p.r.n. 6. She will continue all other outpatient medications as prescribed. FOLLOWUP: 1. Annemarie Davis DDS, MD, Oral Surgery, in [address] Robson Talavera, Infectious Disease, April 28 at [address] Edna Boateng, Primary Care, in 5-7 days to follow up on her oxygen needs. 4. In addition, she will need followup imaging for her incidentally identified thoracic aortic aneu rysm. /[id number]/MODL
== END 2017-04-16 16:27 | disposition home health service (06) | DRG 853 ==
LOC: F2N 23:15 → F1N 04-11 10:48
PROVIDERS: ADMIT Internal Medicine; ATTEND Hospitalist
PROC: 0W9B3ZX Drainage of Left Pleural Cavity, Percutaneous Approach, Diagnostic (ICD-10-PCS; 2017-04-06)
PROC: 0BBL8ZX Excision of Left Lung, Via Natural or Artificial Opening Endoscopic, Diagnostic (ICD-10-PCS; principal; 2017-04-08 16:15)
PROC: 0B9 Respiratory System, Drainage (ICD-10-PCS; principal; 2017-04-08 16:15)
PROC: 0CTX0Z0 Resection of Lower Tooth, Single, Open Approach (ICD-10-PCS; 2017-04-14)
PROC: 0CTW0Z1 Resection of Upper Tooth, Multiple, Open Approach (ICD-10-PCS; 2017-04-14)
PROC: 02HV33Z Insertion of Infusion Device into Superior Vena Cava, Percutaneous Approach (ICD-10-PCS; 2017-04-16)
DX: A41.9 Sepsis, unspecified organism (principal); J96.21 Acute and chronic respiratory failure with hypoxia; J44.0 Chronic obstructive pulmonary disease with (acute) lower respiratory infection; J85.1 Abscess of lung with pneumonia; K02.9 Dental caries, unspecified; F17.200 Nicotine dependence, unspecified, uncomplicated; I71.2 Thoracic aortic aneurysm, without rupture; E03.9 Hypothyroidism, unspecified; I27.2 Other secondary pulmonary hypertension
CPT/HCPCS: 87449-90; 92526-GN; 92610-GN; 96365; 97110-GP; 97116-GP; 97161-GP; 97165-GO; 97530-GO; 97530-GP; 97535-GO; C1751; G8978-GP-CI; G8978-GP-CJ; G8979-GP-CI; G8987-GO-CJ; G8988-GO-CI; G8996-GN-CI; G8997-GN-CI; G8998-GN-CI; J0295; J0330; J0456; J0696; J1100; J1170; J1335; J1650; J1885; J2001; J2370; J2405; J2704; J3010

== ENCOUNTER → 2017-04-26 | Outpatient (CLI) | payer OTHER, BC | LOC: FIMAGING 15:04 | PROVIDERS: ATTEND Surgery | DX: R06.02 Shortness of breath (principal); Z95.9 Presence of cardiac and vascular implant and graft, unspecified; R91.8 Other nonspecific abnormal finding of lung field ==

== ENCOUNTER 2017-05-02 12:08 | Inpatient (IN) | payer OTHER, BC ==
--- NOTE | 2017-05-02 13:24 | EDPHY ---
H & P Time Seen by Provider: 05/02/17 13:01 HPI/ROS: CHIEF COMPLAINT: Difficulty walking HISTORY OF PRESENT ILLNESS: Patient is an 82-year-old female with chronic low back pain and hypothyroidism who presents emergency department with difficulty walking. She states her symptoms started fairly suddenly 5 days ago. She felt a "lightening bolt" go through her head. This caused her to fall to the ground. She states she did not injure herself when she fell. She has had 6 more falls since that time. She denies any new leg pain or hip pain. She feels as though she just weak and unable to ambulate. She normally does not use a walker. She had a call from room to room in her house. She called ambulance to take her to the emergency department. Patient has had no chest pain or shortness of breath. No abdominal pain. REVIEW OF SYSTEMS: My complete review of systems is negative except as mentioned in the HPI. Past Medical/Surgical History: Patient has a history of chronic back pain, hypothyroidism, retroperitoneal fibrosis Past surgical history: Includes surgery for retroperitoneal fibrosis, lumbar back surgery Social history: The patient is . She lives at home with her . She has home health 5 days a week. Smoking Status: Current every day smoker Physical Exam: 36.8, 159/99, 77, 16, 89% on room air. She was 93% on oxygen GENERAL: Well-appearing, in no acute distress, alert. HEAD: No evidence of trauma. EYES: PERRLA, EOMI, normal to inspection. ENT: Airway intact, no dental or oral injury, no malocclusion, normal external examination. NECK: The C-spine is nontender. RESPIRATORY: Clear to auscultation bilaterally, no rales, rhonchi or wheezing. There is no crepitus or palpable rib fractures. CVS: Regular rate and rhythm, no rubs, murmurs, or gallops. ABDOMEN: Soft, nontender, nondistended, normal bowel sounds, no bruising or abrasions. Pelvis: Stable. No tenderness palpation. Hips full range of motion. BACK: Normal to inspection (except surgical scar), no spinal tenderness, no spinal step off, no notable bruising or abrasions. SKIN: Normal color, warm, dry. No pallor or diaphoresis. EXTREMITIES: Right upper extremity: Atraumatic. No visible signs of trauma. No tenderness palpation. Neurovascular intact distally. Left upper extremity: Atraumatic. No visible signs of trauma. No tenderness palpation. Neurovascular intact distally. Right lower extremity: Atraumatic. No visible signs of trauma. No tenderness palpation. Neurovascular intact distally. Left lower extremity: Atraumatic. No visible signs of trauma. No tenderness palpation. Neurovascular intact distally. Atraumatic, neurovascularly intact distally in all extremities, pelvis is stable , hips with full range of motion, moves all extremities freely. NEURO/PSYCH: Alert and oriented x 3, GCS 15, normal mood and affect, normal motor sensory exam. Constitutional: Initial Vital Signs Temperature (C) 36.8 C 05/02/17 12:14 Heart Rate 77 05/02/17 12:14 Respiratory Rate 16 05/02/17 12:14 Blood Pressure 159/99 H 05/02/17 12:14 O2 Sat (%) 89 L 05/02/17 12:14 O2 Delivery Mode Nasal Cannula O2 (L/minute) 2 Allergies/Adverse Reactions: iodine [Iodine] Allergy (Severe, Verified 04/20/16 05:03) Anaphylaxis Iodinated Contrast Media - Oral and [IV Dye, Iodine Containing Contrast ] Allergy (Unknown, Verified 04/20/16 05:03) Home Medications: Medication Instructions Recorded Baclofen [Baclofen 10 mg (*)] 10 mg PO BID PRN 07/13/12 DULoxetine [Cymbalta 60 MG (*)] 120 mg PO DAILY 05/23/14 Simvastatin [Zocor 10 mg] 10 mg PO DAILY18 05/23/14 fentaNYL [Duragesic 50 MCG Patch 50 mcg TD Q48H 04/20/16 (*)] Acetaminophen [Tylenol 325mg (*)] 325 mg PO DAILY PRN 04/05/17 Gabapentin [Neurontin 400 MG (*)] 800 mg PO HS 04/05/17 Levothyroxine [Synthroid 112 mcg 112 mcg PO DAILY06 04/05/17 (*)] clonazePAM [Klonopin (*)] 0.5 mg PO DAILY PRN 04/05/17 Acetaminophen [Tylenol 325mg (*)] 650 mg PO Q4HRS PRN #0 tab 04/16/17 Fluticasone Hfa 220 Mcg [Flovent 1 puffs IH BID #1 mdi 04/16/17 220 MCG Hfa MDI (*)] Nicotine Polacrilex [Nicorette gum 2 mg B Q1HR PRN #30 gum 04/16/17 (*)] Sennosides/Docusate Sodium 1 - 2 tab PO BID #60 tab 04/16/17 [Senokot-S] Medical Decision Making - Diagnostics Imaging Results: Imaging Impressions Cervical Spine CT 05/02/17 13:26 Impression: 1. Negative for intracranial bleed. 2. Suspect small vessel ischemic disease. 3. See above report for additional findings. Hypertrophy extends from C3-C4 to the C7-T1 level. Degenerative changes are also noted involving the anterior articulation of C1 and C2. CT Cervical Spine Without Contrast History: Neck pain in 82-year-old female with a history of recent falls. Technique: Multislice helical CT through the cervical spine without contrast from the skull base to T1. Soft tissue and bone evaluation is performed. Sagittal and coronal reconstructions are obtained and reviewed. Dose reduction techniques were utilized. Findings: A fracture is not identified. The bone alignment is normal. Prevertebral soft tissues appear normal. There is generalized osseous demineralization. There is interbody fusion from C4 to C6. Facet Impression: Negative for fracture with degenerative changes and osseous demineralization noted. Results called and discussed with OLGA HENRY on 05/02/2017 at 14:[address] 05/02/17 13:26 Impression: 1. Negative for intracranial bleed. 2. Suspect small vessel ischemic disease. 3. See above report for additional findings. Hypertrophy extends from C3-C4 to the C7-T1 level. Degenerative changes are also noted involving the anterior articulation of C1 and C2. CT Cervical Spine Without Contrast History: Neck pain in 82-year-old female with a history of recent falls. Technique: Multislice helical CT through the cervical spine without contrast from the skull base to T1. Soft tissue and bone evaluation is performed. Sagittal and coronal reconstructions are obtained and reviewed. Dose reduction techniques were utilized. Findings: A fracture is not identified. The bone alignment is normal. Prevertebral soft tissues appear normal. There is generalized osseous demineralization. There is interbody fusion from C4 to C6. Facet Impression: Negative for fracture with degenerative changes and osseous demineralization noted. Results called and discussed with OLGA HENRY on 05/02/2017 at 14:17 ED Course/Re-evaluation: I met the patient on arrival to the emergency department. I discussed the plan with the patient. An IV was placed. Laboratory studies and EKG were ordered. The patient had a CT of her head and neck. Patient is a difficult IV stick. Multiple tense roommate. Head CT: No acute disease noted. Please refer to Dr. Tucker Shelton note. C-spine CT: No acute disease noted. Please refer to Dr. Tucker Shelton note. 1421: Blood was obtained. EKG: Sinus rhythm at 74. Left axis deviation. Prolonged QT. Flipped Ts V2-V6 I discussed the results with the patient. Patient has mild anemia. Normal white count. Chemistry panel is unremarkable. Differential Diagnosis: My differential includes but is not limited to subarachnoid hemorrhage, subdural hematoma, epidural hematoma, TIA, CVA, thyroid disease, electrolyte abnormality, sugar abnormality, spinal injury, disc herniation, malignancy, mass - Data Points Laboratory Results: Laboratory Results 05/02/17 14:15 05/02/17 14:15 05/02/17 05/02/17 05/02/17 14:15 14:15 14:15 WBC 7.34 10^3/uL 10^3/uL (3.80-9.50) RBC 4.14 10^6/uL L 10^6/uL (4.18-5.33) Hgb 12.1 g/dL L g/dL (12.6-16.3) Hct 37.6 % L % (38.0-47.0) MCV 90.8 fL fL (81.5-99.8) MCH 29.2 pg pg (27.9-34.1) MCHC 32.2 g/dL L g/dL (32.4-36.7) RDW 18.6 % H % (11.5-15.2) Plt Count 423 10^3/uL H 10^3/uL (150-400) MPV 10.0 fL fL (8.7-11.7) Neut % (Auto) 75.0 % H % (39.3-74.2) Lymph % (Auto) 16.5 % % (15.0-45.0) Harding % (Auto) 4.2 % L % (4.5-13.0) Eos % (Auto) 3.7 % % (0.6-7.6) Baso % (Auto) 0.5 % % (0.3-1.7) Nucleat RBC Rel Count 0.0 % % (0.0-0.2) Absolute Neuts (auto) 5.50 10^3/uL 10^3/uL (1.70-6.50) Absolute Lymphs (auto) 1.21 10^3/uL 10^3/uL (1.00-3.00) Absolute Monos (auto) 0.31 10^3/uL 10^3/uL (0.30-0.80) Absolute Eos (auto) 0.27 10^3/uL 10^3/uL (0.03-0.40) Absolute Basos (auto) 0.04 10^3/uL 10^3/uL (0.02-0.10) Absolute Nucleated RBC 0.00 10^3/uL 10^3/uL (0-0.01) Immature Gran % 0.1 % % (0.0-1.1) Immature Gran # 0.01 10^3/uL 10^3/uL (0.00-0.10) PT 14.5 SEC SEC (12.0-15.0) INR 1.14 (0.83-1.16) APTT 20.0 SEC L SEC (23.0-38.0) Sodium 144 mEq/L mEq/L (134-144) Potassium 4.4 mEq/L mEq/L (3.5-5.2) Chloride 104 mEq/L mEq/L (97-110) Carbon Dioxide 28 mEq/l mEq/l (22-31) Anion Gap 12 mEq/L mEq/L (8-16) BUN 18 mg/dL mg/dL (7-23) Creatinine 0.7 mg/dL mg/dL (0.6-1.0) Estimated GFR > 60 Glucose 87 mg/dL mg/dL (70-100) Calcium 8.9 mg/dL mg/dL (8.5-10.4) Total Bilirubin 0.9 mg/dL mg/dL (0.1-1.4) Conjugated Bilirubin 0.6 mg/dL H mg/dL (0.0-0.5) Unconjugated Bilirubin 0.3 mg/dL mg/dL (0.0-1.1) AST 50 IU/L H IU/L (14-46) ALT 24 IU/L IU/L (9-52) Alkaline Phosphatase 114 IU/L IU/L (38-126) Troponin I < 0.012 ng/mL ng/mL (0-0.034) Total Protein 8.8 g/dL H g/dL (6.3-8.2) Albumin 3.8 g/dL g/dL (3.5-5.0) TSH 2.460 uIU/mL uIU/mL (0.465-4.680) Specimen Hemolysis 137 Medications Given: Discontinued Medications Sodium Chloride (Ns) 500 mls @ 0 mls/hr IV ONCE ONE; Wide Open PRN Reason: Protocol Stop: 05/02/17 13:26 Last Admin: 05/02/17 14:48 Dose: 500 mls Departure - Departure Disposition: [facility] Inpatient Acute Clinical Impression: Weakness Fall Qualifiers: Encounter type: initial encounter Qualified Code(s): W19.XXXA - Unspecified fall, initial encounter Headache Qualifiers: Headache type: unspecified Headache chronicity pattern: acute headache Intractability: not intractable Qualified Code(s): R51 - Headache Condition: Good Referrals: Patient,NotPresent [Primary Care Provider] - As per Instructions
[2017-05-02] MEDS ORDERED: NS 500 ML IV ONE (13:25)
--- NOTE | 2017-05-02 14:04 | CPEKG ---
Heart Rate: 74 RR Interval: 811 P-R Interval: 184 QRSD Interval: 98 QT Interval: 460 QTC Interval: 511 P Lequire: 71 QRS Lequire: -41 T Wave Lequire: 224 EKG Severity - ABNORMAL ECG - EKG Impression: SINUS RHYTHM EKG Impression: LEFT AXIS DEVIATION EKG Impression: NONSPECIFIC T ABNORMALITIES, DIFFUSE LEADS EKG Impression: PROLONGED QT INTERVAL Electronically Signed By: Robert Shane 04-May-2017 09:01:49
[2017-05-02 14:30] LABS: % IMMATURE GRANULYOCYTES 0.1 % (0.0-1.1); ABSOLUTE IMMATURE GRANULOCYTES 0.01 10^3/uL (0.00-0.10); ADD DIFF? NO; ADD MORPH? NO; ADD SCAN? NO; ATYPICAL LYMPHOCYTE FLAG 10 (0-99); FRAGMENT RBC FLAG 10 (0-99); HEMATOCRIT 37.6 % (38.0-47.0); HEMOGLOBIN 12.1 g/dL (12.6-16.3); LEFT SHIFT FLG 0 (0-99); LIPEMIA HEMOLYSIS FLAG 80 (0-99); MEAN CELL HEMOGLOBIN 29.2 pg (27.9-34.1); MEAN CELL HEMOGLOBIN CONCENTR. 32.2 g/dL (32.4-36.7); MEAN CELL VOLUME 90.8 fL (81.5-99.8); PLATELET CLUMPS FLAG 10 (0-99); PLATELET COUNT 423 10^3/uL (150-400); RED BLOOD CELL COUNT 4.14 10^6/uL (4.18-5.33); RED CELL DISTRIBUTION WIDTH 18.6 % (11.5-15.2)
[2017-05-02 14:39] LABS: ALANINE AMINOTRANSFERASE 24 IU/L (9-52); ALBUMIN 3.8 g/dL (3.5-5.0); ALKALINE PHOSPHATASE 114 IU/L (38-126); ANION GAP 12 mEq/L (8-16); ASPARTATE AMINOTRANSFERASE 50 IU/L (14-46); BILIRUBIN,TOTAL 0.9 mg/dL (0.1-1.4); BILIRUBIN-CONJUGATED 0.6 mg/dL (0.0-0.5); BILIRUBIN-UNCONJUGATED 0.3 mg/dL (0.0-1.1); CALCIUM 8.9 mg/dL (8.5-10.4); CARBON DIOXIDE 28 mEq/l (22-31); CHLORIDE 104 mEq/L (97-110); CREATININE 0.7 mg/dL (0.6-1.0); GLOMERULAR FILTRATION RATE > 60; GLUCOSE 87 mg/dL (70-100); POTASSIUM 4.4 mEq/L (3.5-5.2); SODIUM 144 mEq/L (134-144); SPECIMEN HEMOLYSIS 137; TOTAL PROTEIN 8.8 g/dL (6.3-8.2)
[2017-05-02 14:47] LABS: INR 1.14 (0.83-1.16); PROTIME(PATIENT) 14.5 SEC (12.0-15.0)
[2017-05-02 14:50] LABS: TROPONIN I < 0.012 ng/mL (0-0.034)
[2017-05-02] MEDS ORDERED: ONDANSETRON DISINTEGRATING 4 MG TAB PO PRN (16:27)
[2017-05-02] MEDS ORDERED: ONDANSETRON 4 MG/2 ML VIAL IVP PRN (16:27)
[2017-05-02] MEDS ORDERED: clonazePAM 0.5 MG TAB PO PRN (16:31)
[2017-05-02] MEDS ORDERED: ACETAMINOPHEN 325 MG TAB PO PRN (16:31)
[2017-05-02] MEDS ORDERED: fentaNYL 50 MCG PATCH TD SCH (16:45)
--- NOTE | 2017-05-02 17:15 | GHP ---
[f rep st] HISTORY AND PHYSICAL DATE OF ADMISSION: 05/02/2017 The patient is a pleasant 82-year-old female with a recent admission for empyema where she had a thoracotomy and tooth extraction, strep intermedius was the causative organism. She returned home 10 days ago and has been doing okay except for the last few days has been progressively weaker, unable to walk, her legs have been giving out. She has had a little bit of diarrhea. She has not had vomiting. She has not had palpitations or chest pain or shortness of breath. Symptoms started somewhat suddenly 5 days ago. She had a lightening bolt go through her head, then she fell to the ground, 6 more falls since then. No leg or hip pain. She is just weak, unable to ambulate. In the hospital during her last admission, she was felt by Physical Therapy to be appropriate for home with home care, although was somewhat borderline. I did care for her during her last hospitalization. She has not had hemoptysis. She has no personal history of VTE and no notable cardiac history. She has completed her antibiotics. She had a tooth extraction by Dr. Davis during the last hospital stay and she has had some tenderness in her gums but no fever, chills or mouth pain. No dysphagia. She states she has been eating and drinking okay. REVIEW OF SYSTEMS: Complete 10-point review of systems conducted. Negative except as noted in the HPI. PAST MEDICAL HISTORY: 1. Recent empyema with thoracotomy performed by Dr. Walker on April 08. 2. Poor dentition. 3. COPD with hypoxia. 4. Hyperlipidemia. 5. Chronic aspiration of the right lung. 6. Retroperitoneal fibrosis and hydroureter. 7. Hypothyroidism. 8. Pulmonary hypertension by report. 9. History of thyroid surgery. 10. Foot surgery. 11. Ureteral stents in the past. SOCIAL HISTORY: She smokes cigarettes. No alcohol. No IV drug use. Lives as independently. FAMILY HISTORY: Reviewed and unremarkable. ALLERGIES: Iodinated contrast. MEDICATIONS: Baclofen; naproxen; acetaminophen; vitamin D3; clonazepam; duloxetine; fentanyl; gabapentin; levothyroxine; simvastatin. PHYSICAL EXAMINATION: VITAL SIGNS: Presenting vitals today blood pressure 159/ 99, pulse 77, breathing 16 times a minute, 89% on 2 L. GENERAL: No acute distress. HEENT: Sclerae anicteric. Oropharynx clear. Her upper teeth ____ extracted and there is no evidence of purulence. There is no foul odor. There is no erythema. NECK: Supple without lymphadenopathy or JVD. LUNGS: Clear to auscultation bilaterally. There are some decreased breath sounds at the left base. HEART: S1, S2 without significant murmurs. ABDOMEN: Soft, nontender, nondistended. LOWER EXTREMITIES: Without edema. Calves are nontender. SKIN: Without rash. NEUROLOGIC: Grossly nonfocal. LABS: Sodium 144, potassium 4.4, chloride 104, bicarb 28, BUN 18, creatinine 0.7. LFTs are normal other than AST of 50. Troponin less than 0.012. There is no BNP. A TSH is 2.46. White count 7.4, hematocrit 37.6 which is higher than her discharge. Platelets are 423, they are coming down. INR is 1.1. Chest x-ray, interpreted by me, shows on some airspace disease in the left. When compared with priors, it is pretty much the same. There are probably some platelike atelectasis in the left. An EKG, interpreted by me, shows sinus at 74 with left axis deviation, normal intervals. No ST or T-wave changes other wavy baseline. Noncontrast head CT and cervical spine CT show no evidence of intracranial bleed, suspect small vessel disease. There is no fracture but degenerative changes are noted of cervical spine. I have discussed the case Dr. Nannette Leong. ASSESSMENT AND PLAN: An 82-year-old female, with recent hospitalization for empyema, who presents with generalized weakness of uncertain etiology. 1. Generalized weakness. The common culprits of pneumonia, electrolyte abnormalities and renal failure have been essentially ruled out. Her creatinine is a little higher than at her baseline but not notable of significant dehydration. We will give her IV fluids. I think I will check for Clostridium difficile given her soft stool and recent antibiotic course and given the abrupt onset nature and her recent hospitalization, we will do a CT angio to rule out pulmonary embolism. Of note, she does have an iodine contrast , so may have to either premedicate her or find an additional modality. Will also check another troponin and follow her on telemetry. She has multiple medications that could be culprits including baclofen, fentanyl patch. We will follow with these. I am not sure if the fentanyl patch is new or not from previous admission. I believe it is not. I believe she was on this prior, but certainly we will have to consider some of these as the etiology of her weakness as well. 2. Elevated ALT, AST. This is mild, will follow. 3. Anemia. This is resultant of her recent hospitalization. 4. Recent empyema. Chest x-ray is unchanged, we will get a better picture with a CT. I will hold antibiotics. 5. Prophylaxis. Pharmacologic prophylaxis as indicated. Start enoxaparin. 6. Disposition: Inpatient status. PT, OT. /[id number]/MODL and [id number]/MODL MTDD
[2017-05-02] MEDS ORDERED: NON-FORMULARY NEW DRUG (Simvastatin [Zocor 10 Mg] 10 MG) PO SCH (18:00)
[2017-05-02] MEDS: PRAVASTATIN SODIUM 20 MG TAB PO SCH (18:24)
[2017-05-02] MEDS: NS 1,000 ML IV SCH (18:24)
[2017-05-02] MEDS: GABAPENTIN 400 MG CAP PO SCH (20:52)
[2017-05-03] MEDS: NS 1,000 ML IV SCH (02:48)
[2017-05-03] MEDS: LEVOTHYROXINE 112 MCG TAB PO SCH (05:41)
[2017-05-03 06:10] LABS: % IMMATURE GRANULYOCYTES 0.4 % (0.0-1.1); ABSOLUTE IMMATURE GRANULOCYTES 0.03 10^3/uL (0.00-0.10); ADD DIFF? NO; ADD MORPH? NO; ADD SCAN? NO; ATYPICAL LYMPHOCYTE FLAG 10 (0-99); FRAGMENT RBC FLAG 0 (0-99); HEMATOCRIT 32.5 % (38.0-47.0); HEMOGLOBIN 10.3 g/dL (12.6-16.3); LEFT SHIFT FLG 0 (0-99); LIPEMIA HEMOLYSIS FLAG 80 (0-99); MEAN CELL HEMOGLOBIN 28.9 pg (27.9-34.1); MEAN CELL HEMOGLOBIN CONCENTR. 31.7 g/dL (32.4-36.7); MEAN CELL VOLUME 91.3 fL (81.5-99.8); MEAN PLATELET VOLUME 9.6 fL (8.7-11.7); PLATELET CLUMPS FLAG 0 (0-99); PLATELET COUNT 329 10^3/uL (150-400); RED BLOOD CELL COUNT 3.56 10^6/uL (4.18-5.33); RED CELL DISTRIBUTION WIDTH 18.1 % (11.5-15.2)
[2017-05-03 06:22] LABS: ALANINE AMINOTRANSFERASE 27 IU/L (9-52); ALBUMIN 2.4 g/dL (3.5-5.0); ALKALINE PHOSPHATASE 86 IU/L (38-126); ANION GAP 8 mEq/L (8-16); ASPARTATE AMINOTRANSFERASE 23 IU/L (14-46); BILIRUBIN,TOTAL 0.4 mg/dL (0.1-1.4); CALCIUM 7.4 mg/dL (8.5-10.4); CARBON DIOXIDE 27 mEq/l (22-31); CHLORIDE 109 mEq/L (97-110); CREATININE 0.7 mg/dL (0.6-1.0); GLOMERULAR FILTRATION RATE > 60; GLUCOSE 75 mg/dL (70-100); POTASSIUM 3.3 mEq/L (3.5-5.2); SODIUM 144 mEq/L (134-144); TOTAL PROTEIN 5.9 g/dL (6.3-8.2)
[2017-05-03] MEDS ORDERED: Herbals/Supplements -Info Only PO SCH (09:00)
--- NOTE | 2017-05-03 09:11 | WOCRNPDOC ---
WOCRN Advanced Assessment Note - Skin Integrity Problem, Advanced Assess Coccyx Pressure Injury Dressing Type: Open to Air (Calazime cream apparent) Exudate Amount: None Exudate Characteristic(s): None Integumentary Issue Intervention: Dressing Applied Noreen Wound Tissue: Blanching, Raw, Denuded Noreen Wound Swelling: Mild Wound Bed Color: Red Site Measurement - Head-to-Toe Length X Width X Depth (cm): [id number] Pressure Injury Stage: Stage 1 Pressure Injury Present on Admit: Yes (reported by admitting RN) Skin Integrity Problem Comment: Small area of non-blanching erythema directly over coccyx, consistent in appearance with stage I pressure injury. This injury is surrounded by raw, denuded skin, consistent w/ IAD and breakdown from moisture. There are scattered areas of partial-thickness tissue loss, however these are not over a bony prominence and are the result of too much moisture. In addition, skin over gluteal cleft is raised and firm, indicative of ongoing problem w/ moisture-associated breakdown. Accu-max w/ pump ordered, and turns side to side q 2 initiated by nursing. Treatment will consist of a combination barrier cream and protective foam dressing to off-load/disperse pressure. Will round on patient again on 05/11. general supervisorESPERANZA Yu present and assisting. Bilateral Elbow Dressing Type: Open to Air Exudate Amount: None Exudate Characteristic(s): None Noreen Wound Tissue: Blanching, Intact Noreen Wound Swelling: None Wound Bed Color: Red Skin Integrity Problem Comment: Circular-shaped areas of blanching erythema noted over bilateral elbows. While skin is currently intact and blanching, redness suggests patient has potential risk for breakdown to these sites. Per general supervisorESPERANZA Yu, patient has h/o falls and reports using her elbows to push herself around. This author also saw patient resting on elbows while in bed. Foam dressing ordered for prophylaxis against friction/pressure injury. Patient will be placed on an Accu-max mattress with pump today. Left Medial Back Dressing Type: Open to Air Exudate Amount: None Exudate Characteristic(s): None Noreen Wound Tissue: Blanching, Intact Noreen Wound Swelling: None Wound Bed Color: Purple Site Measurement - Head-to-Toe Length X Width X Depth (cm): [id number] Skin Integrity Problem Comment: Area of ecchymosis noted over bony prominence, to the L of patient's spine on her left mid-back. While this is most likely a bruise, cannot r/u deep tissue injury at this time. Advised general supervisor Gigi to apply a foam bordered dressing for protection, and to follow existing pressure- relieving precautions.
[2017-05-03] MEDS: ENOXAPARIN 30 MG/0.3 ML SYR SC SCH (10:07)
[2017-05-03] MEDS: DULoxetine 60 MG CAP PO SCH (10:07)
[2017-05-03] MEDS: CHOLECALCIFEROL VIT D3 1,000 UNITS TAB PO SCH (10:07)
[2017-05-03 10:21] LABS: COLOR YELLOW; LEUKOCYTE ESTERASE,URINE TRACE (NEGATIVE); NITRITE,URINE NEGATIVE (NEGATIVE)
[2017-05-03 10:58] LABS: MUCUS 1+ /lpf (NONE-1+); WBC,URINE 15-25 /hpf (0-3); YEAST PRESENT /hpf (NONE SEEN)
[2017-05-03 10:59] LABS: RBC,URINE NONE SEEN /hpf (0-3)
[2017-05-03] MEDS ORDERED: fentaNYL 50 MCG PATCH TD SCH (11:15)
[2017-05-03] MEDS: fentaNYL 25 MCG PATCH TD SCH (13:46)
--- NOTE | 2017-05-03 15:06 | HOSPPROG ---
Hospitalist Progress Note Assessment/Plan: This is a 82-year-old female new to my care on 05/03/17 presenting with: # generalized weakness possibly related to fentanyl # Mild transaminitis # anemia # recently treated empyema plan: - Will decrease fentanyl to 25 microgram/hour patch Disposition: Patient appears to be too weak to return home. We are currently looking into penitentiary facility placement. Subjective: no new complaints. pain controlled. no fevers or chills. no chest pain Objective: Vital Signs Temp Pulse Resp BP Pulse Ox 36.2 C 75 18 132/70 H 98 05/03/17 11:43 05/03/17 11:43 05/03/17 11:43 05/03/17 11:43 05/03/17 11:46 Laboratory Results 05/03/17 05:44 05/03/17 05:44 05/02/17 05/03/17 05/04/17 05:59 05:59 05:59 Intake Total 1850 Balance 1850 PT 14.5 SEC (12.0-15.0) 05/02/17 14:15 INR 1.14 (0.83-1.16) 05/02/17 14:15 - Physical Exam Constitutional: no apparent distress, appears nourished, not in pain Cardiovascular: regular rate and rhythym, no murmur, rub, or gallop Respiratory: no respiratory distress, no rales or rhonchi, clear to auscultation Gastrointestinal: normoactive bowel sounds, soft, non-tender abdomen, no palpable masses, No guarding, No rebound Skin: no rashes or abrasions, no fluctuance, no induration Neurologic: AAOx3 ICD10 Worksheet Patient Problems: Problems Problem Status Onset ideopathic retroperitoneal fibrosis Active Pneumonia Active Chronic obstructive lung disease Active Clostridium difficile infection Active Chronic Disease Mgmt/Transitional Care Acute Chronic pain Acute Left hip pain Acute UTI (urinary tract infection) Acute Contusion of hip, left Acute Sepsis Acute Community acquired pneumonia Acute Empyema Acute Fall Acute Headache Acute Weakness Acute
[2017-05-03] MEDS: PRAVASTATIN SODIUM 20 MG TAB PO SCH (18:22)
[2017-05-03] MEDS: GABAPENTIN 400 MG CAP PO SCH (20:13)
[2017-05-04] MEDS: LEVOTHYROXINE 112 MCG TAB PO SCH (05:22)
[2017-05-04] MEDS: CHOLECALCIFEROL VIT D3 1,000 UNITS TAB PO SCH (09:32)
[2017-05-04] MEDS: DULoxetine 60 MG CAP PO SCH (09:33)
[2017-05-04] MEDS: ENOXAPARIN 30 MG/0.3 ML SYR SC SCH (09:33)
[2017-05-04] MEDS: ACETAMINOPHEN 325 MG TAB PO PRN ×2 (09:52→22:38)
[2017-05-04] MEDS ORDERED: PROTOCOL POTASSIUM 1 DOSE MISC PRN (14:52)
--- NOTE | 2017-05-04 14:53 | HOSPPROG ---
Hospitalist Progress Note Assessment/Plan: This is a 82-year-old female new to my care on 05/03/17 presenting with: # generalized weakness possibly related to fentanyl # Mild transaminitis # anemia # recently treated empyema # hypokalemia plan: - continue fentanyl at 25 microgram/hour patch and consider further tapering as indicated - replace potassium per protocol Disposition: Patient appears to be too weak to return home. We are currently looking into assisted facility placement. adult protective Services are involved in the case and plan to evaluate tomorrow 05/05/2017 Subjective: she wants to go home. She denies any new pain. She is still noted to be very weak by nursing staff. She is not eating much. Objective: Vital Signs Temp Pulse Resp BP Pulse Ox 36.5 C 62 14 126/83 H 94 05/04/17 11:27 05/04/17 11:44 05/04/17 11:27 05/04/17 11:27 05/04/17 11:44 Laboratory Results 05/03/17 05:44 05/03/17 05:44 05/03/17 05/04/17 05/05/17 05:59 05:59 05:59 Intake Total 1850 500 Balance 1850 500 PT 14.5 SEC (12.0-15.0) 05/02/17 14:15 INR 1.14 (0.83-1.16) 05/02/17 14:15 - Physical Exam Constitutional: chronically ill appearing Cardiovascular: regular rate and rhythym, no murmur, rub, or gallop Respiratory: no respiratory distress, no rales or rhonchi, clear to auscultation Gastrointestinal: normoactive bowel sounds, soft, non-tender abdomen, no palpable masses ICD10 Worksheet Patient Problems: Problems Problem Status Onset ideopathic retroperitoneal fibrosis Active Pneumonia Active Chronic obstructive lung disease Active Clostridium difficile infection Active Chronic Disease Mgmt/Transitional Care Acute Chronic pain Acute Left hip pain Acute UTI (urinary tract infection) Acute Contusion of hip, left Acute Sepsis Acute Community acquired pneumonia Acute Empyema Acute Fall Acute Headache Acute Weakness Acute
[2017-05-04] MEDS: PRAVASTATIN SODIUM 20 MG TAB PO SCH (18:16)
[2017-05-04 19:10] LABS: POTASSIUM 4.6 mEq/L (3.5-5.2)
[2017-05-04] MEDS: GABAPENTIN 400 MG CAP PO SCH (20:33)
[2017-05-04] MEDS ORDERED: SIMETHICONE 80 MG TAB CHEW PO PRN (23:32)
[2017-05-05] MEDS: traZODone 50 MG TAB PO PRN (01:13)
[2017-05-05] MEDS: ENOXAPARIN 30 MG/0.3 ML SYR SC SCH (10:19)
[2017-05-05] MEDS: DULoxetine 60 MG CAP PO SCH (10:19)
[2017-05-05] MEDS: CHOLECALCIFEROL VIT D3 1,000 UNITS TAB PO SCH (10:19)
[2017-05-05] MEDS: LEVOTHYROXINE 112 MCG TAB PO SCH (10:19)
[2017-05-05] MEDS ORDERED: PNEUMOC 13-VAL CONJ-DIP CRM/PF 0.5 ML SYR IM ONE (11:44)
--- NOTE | 2017-05-05 13:07 | HOSPPROG ---
Hospitalist Progress Note Assessment/Plan: This is a 82-year-old female new to my care on 05/03/17 presenting with: # generalized weakness possibly related to fentanyl # Mild transaminitis # anemia # recently treated empyema # hypokalemia plan: - continue fentanyl at 25 microgram/hour patch and consider further tapering as indicated - replace potassium per protocol Disposition: Patient appears to be too weak to return home. We are currently looking into penitentiary facility placement. adult protective Services are involved in the case and plan to evaluate today. likely dc to snf later today Subjective: no complaints. pain controlled Objective: Vital Signs Temp Pulse Resp BP Pulse Ox 36.5 C 62 14 138/79 H 98 05/05/17 07:37 05/05/17 07:37 05/05/17 07:37 05/05/17 07:37 05/05/17 07:37 Laboratory Results 05/03/17 05:44 05/05/17 04:25 05/04/17 05/05/17 05/06/17 05:59 05:59 05:59 Intake Total 500 200 Balance 500 200 PT 14.5 SEC (12.0-15.0) 05/02/17 14:15 INR 1.14 (0.83-1.16) 05/02/17 14:15 - Physical Exam Constitutional: no apparent distress, appears nourished, not in pain Cardiovascular: regular rate and rhythym, no murmur, rub, or gallop Respiratory: no respiratory distress, no rales or rhonchi, clear to auscultation Gastrointestinal: normoactive bowel sounds, soft, non-tender abdomen, no palpable masses ICD10 Worksheet Patient Problems: Problems Problem Status Onset ideopathic retroperitoneal fibrosis Active Pneumonia Active Chronic obstructive lung disease Active Clostridium difficile infection Active Chronic Disease Mgmt/Transitional Care Acute Chronic pain Acute Left hip pain Acute UTI (urinary tract infection) Acute Contusion of hip, left Acute Sepsis Acute Community acquired pneumonia Acute Empyema Acute Fall Acute Headache Acute Weakness Acute
[2017-05-05] MEDS: fentaNYL 25 MCG PATCH TD SCH (15:43)
[2017-05-05] MEDS: PRAVASTATIN SODIUM 20 MG TAB PO SCH (18:05)
[2017-05-05 18:41] LABS: POTASSIUM 4.1 mEq/L (3.5-5.2)
[2017-05-05] MEDS: GABAPENTIN 400 MG CAP PO SCH (20:18)
[2017-05-06] MEDS: traZODone 50 MG TAB PO PRN (00:55)
[2017-05-06 03:53] VITALS: TEMP 97.5
[2017-05-06] MEDS: LEVOTHYROXINE 112 MCG TAB PO SCH (04:59)
[2017-05-06 07:51] VITALS: BP 117/67; PULSE 65; RESP 12
[2017-05-06] MEDS ORDERED: PNEUMOC 13-VAL CONJ-DIP CRM/PF 0.5 ML SYR IM ONE (09:51)
--- NOTE | 2017-05-06 10:50 | PDIAF ---
- Diagnosis Diagnosis: weakness Code Status: Full Code - Medication Management Discharge Medications: Medications to Continue on Transfer DULoxetine [Cymbalta 60 MG (*)] 120 mg PO DAILY 05/23/14 [Last Taken 05/02/17 08 :00] Simvastatin [Zocor 10 mg] 10 mg PO DAILY18 05/23/14 [Last Taken 05/01/17 21:00] Acetaminophen [Tylenol 325mg (*)] 325 mg PO DAILY PRN 04/05/17 [Last Taken Unknown] Gabapentin [Neurontin 400 MG (*)] 800 mg PO HS 04/05/17 [Last Taken 05/01/17 21: 00] Levothyroxine [Synthroid 112 mcg (*)] 112 mcg PO DAILY06 04/05/17 [Last Taken 07:00] clonazePAM [Klonopin (*)] 0.5 mg PO HS PRN 04/05/17 [Last Taken 05/01/17 21:00] Cholecalciferol Vit D3 [Vitamin D3 (*)] 1,000 units PO DAILY 05/02/17 [Last Taken 05/02/17 08:00] Herbals/Supplements -Info Only 1 ea PO DAILY 05/02/17 [Last Taken Unknown] Naproxen Sodium [Aleve 220 MG (*)] 220 mg PO DAILY@16 05/02/17 [Last Taken 05/01 16:00] fentaNYL [Duragesic 25 MCG Patch (*)] 25 mcg TD Q48H #5 patch 05/06/17 [Last Taken Unknown] Discharge Medications: Refer to the Discharge Home Medication list for PRN reason. PICC Care - Routine: N/A - Orders Services needed: Registered Nurse, Physical Therapy, Occupational Therapy Diet Recommendation: no restrictions on diet - Follow Up Care Current Providers and Referrals: Patient,NotPresent [Primary Care Provider] - As per Instructions
[2017-05-06] MEDS: DULoxetine 60 MG CAP PO SCH (11:07)
[2017-05-06] MEDS: CHOLECALCIFEROL VIT D3 1,000 UNITS TAB PO SCH (11:08)
[2017-05-06] MEDS: ENOXAPARIN 30 MG/0.3 ML SYR SC SCH (12:17)
--- NOTE | 2017-05-06 13:34 | GDS ---
[f rep st] DISCHARGE SUMMARY DISCHARGE DIAGNOSES: 1. Generalized weakness. 2. Mild transaminitis. 3. Anemia. 4. Hypokalemia. 5. Chronic pain. 6. Adult failure to thrive. CONSULTATIONS: Wound Care. PHYSICAL EXAM: GENERAL: The patient is alert. VITAL SIGNS: Afebrile at 36.4 , pulse is 65, respiratory rate is 12, blood pressure is 117/67, she is saturating 95% on 4 L. I have seen and evaluated the patient on the day of discharge. HOSPITAL COURSE: The patient is an 82-year-old female who presented to the emergency room with complaints of weakness. She was evaluated and diagnosed with. 1. Generalized weakness. This is multifactorial in the setting of adult failure to thrive. The patient has been consulted on by social work as well as APS. It is recommended that she be discharged to a [facility] facility. However, she is refusing at this time and is requesting to be discharged home. I have discussed with her at length regarding the precautions that need to be taken as this is not our recommendation. She does understand this and wishes to continue to be home with home health care. 2. Mild transaminitis. This is stable. 3. Anemia. This is multifactorial with no signs of bleeding. 4. Hypokalemia. This has been replaced. 5. Chronic pain. The patient's fentanyl patch has been adjusted during this hospitalization. 6. Acute on chronic hypoxemia. The patient is requiring supplemental oxygen at the time of discharge. Room air saturation is 84%. This is in the setting of COPD, atelectasis and recent empyema. DISPOSITION: The patient will be discharged home with home health care and her . There are no pending studies. DISCHARGE MEDICATIONS: Please refer to EMR form. I have adjusted the patient' s fentanyl patch to 25 mcg q.48 hours instead of 50. FOLLOWUP: Will be with her primary care physician as well as home health care. I spent greater than 35 minutes in the care, coordination, and management of this patient's disposition. /[id number]/MODL MTDD
[2017-05-06 14:09] VITALS: O2SAT 84
== END 2017-05-06 16:25 | disposition home health service (06) | DRG 948 ==
LOC: EDUNIT# → OBSVTOIN 16:27 → F3E 17:19
PROVIDERS: ADMIT Internal Medicine; ATTEND Internal Medicine
DX: R53.1 Weakness (principal); R29.6 Repeated falls; T40.4X5A Adverse effect of other synthetic narcotics, initial encounter; R62.7 Adult failure to thrive; D64.89 Other specified anemias; E87.6 Hypokalemia; R74.0 Nonspecific elevation of levels of transaminase and lactic acid dehydrogenase [LDH]; G89.29 Other chronic pain; J44.9 Chronic obstructive pulmonary disease, unspecified; F17.210 Nicotine dependence, cigarettes, uncomplicated; R09.02 Hypoxemia; E03.9 Hypothyroidism, unspecified; E78.5 Hyperlipidemia, unspecified; Z23 Encounter for immunization
CPT/HCPCS: 92610-GN; 97116-GP; 97162-GP; 97166-GO; 97535-GO; G0009; G8978-GP-CJ; G8979-GP-CI; G8987-GO-CJ; G8988-GO-CI; G8989-GO-CJ; G8996-GN-CI; G8997-GN-CI; J1650

== ENCOUNTER → 2018-03-22 | Outpatient (CLI) | payer OTHER, BC | LOC: BMCIMAGING 13:54 | PROVIDERS: ATTEND Nurse Practitioner Adult Health | DX: Z12.31 Encounter for screening mammogram for malignant neoplasm of breast (principal); Z13.820 Encounter for screening for osteoporosis; E07.9 Disorder of thyroid, unspecified ==

== ENCOUNTER → 2018-04-07 | Outpatient (CLI) | payer OTHER, BC | LOC: BMCIMAGING 12:16 | PROVIDERS: ATTEND Physician Assistant Medical | DX: R91.8 Other nonspecific abnormal finding of lung field (principal); R05 Cough; R09.02 Hypoxemia ==

== ENCOUNTER → 2018-04-12 | Outpatient (CLI) | payer OTHER, BC ==
[~2018-04-12] MED LIST: IOPAMIDOL (ISOVUE-300) 100 ML BTL ONE
== END ==
LOC: FIMAGING 14:56
PROVIDERS: ATTEND Physician Assistant Medical
DX: R91.8 Other nonspecific abnormal finding of lung field (principal); J98.11 Atelectasis; J47.9 Bronchiectasis, uncomplicated; J90 Pleural effusion, not elsewhere classified
CPT/HCPCS: 71260; Q9967

== ENCOUNTER 2018-04-20 15:20 | Observation (INO) | payer OTHER, BC ==
--- NOTE | 2018-04-20 15:41 | EDPHY ---
HPI/HX/ROS/PE/MDM Narrative: CHIEF COMPLAINT: Abnormal lab work, possible GI bleed HISTORY OF PRESENT ILLNESS: The patient is an 82 y/o female arriving at the advise for her PCP, Dr. Zaragoza , after abnormal laboratory results (hematocrit of 35.5) from yesterday which indicated a possible GI bleed. Two days ago she began to have black bowel movements, mild abdominal pain, felt lightheaded, became nauseated, and eventually had several episodes of vomiting. She denies vomiting blood, syncope or chest pain. Yesterday, she went to her PCP for these worsening symptoms and had blood work which revealed a hematocrit of 35.5. She did not have a rectal exam during this visit. Due to these lab findings her PCP called her today and advised her to present to the emergency department. She has not had a bowel movement today. Denies history of stomach ulcers, heartburn, indigestion, GERD, liver problems, prior GI bleeds, or anticoagulant use. No fever, chills, shortness of breath, palpitations, urinary complaints, headache. REVIEW OF SYSTEMS: Aside from elements discussed in the HPI, a comprehensive 10-point review of systems was reviewed and is negative. PAST MEDICAL HISTORY: Chronic pain, hypothyroidism, home oxygen, retroperitoneal fibrosis SOCIAL HISTORY: Lives in [place], at bedside, retired, smokes tobacco VITAL SIGNS: Reviewed by me GENERAL: Elderly, pale, pleasant, well-developed, well-nourished, resting comfortably in no respiratory distress. HEENT: Atraumatic. Eyes: No icterus, no injection. Mouth: moist mucous membranes. No erythema or lesions. Neck: supple with no adenopathy. LUNGS: Clear to auscultation bilaterally, no wheezes, rhonchi or rales. CARDIAC: Regular rate and rhythm, no rubs, murmurs or gallops. ABDOMEN: Soft, nontender, nondistended, bowel sounds normal. RECTAL: Small amount of black stool. BACK: No CVA tenderness. EXTREMITIES: No trauma. No edema. Range of motion is normal throughout. NEURO: Alert and oriented, grossly nonfocal. SKIN: Warm and dry, no rash. PSYCHIATRIC: Normal mentation, no agitation. Portions of this note were transcribed by a medical assistant supervisor. I personally performed a history, physical exam, medical decision making, and confirmed accuracy of information the transcribed note. ED Course: The patient is an 82 y/o female arriving at the advise for her PCP, Dr. Zaragoza , after abnormal laboratory results (hematocrit of 35.5) from yesterday which indicated a possible GI bleed. Currently she is mildly nauseous and has mild abdominal pain. On exam she is pale and has a small amount of black stool present. Labs ordered; 1L IV NS and 40mg IV Protonix administered. At this time I have discussed the likelihood of an admission, which the patient is comfortable with. 1730: Consulted with hospitalist service, Dr. Lilly accepts admission of this patient for a GI bleed. 1920: Consulted with Dr. Gomes, watch train inspector, regarding patient. She agrees to consult on this patient during her admission. - Data Points Laboratory Results: Laboratory Results 04/20/18 16:10 04/20/18 16:10 04/20/18 04/20/18 04/20/18 16:17 16:10 16:10 WBC RBC Hgb POC Hgb 12.2 gm/dL L gm/dL (12.6-16.3) Hct POC Hct 36 % L % (38-47) MCV MCH MCHC RDW Plt Count MPV Neut % (Auto) Lymph % (Auto) Humphreys % (Auto) Eos % (Auto) Baso % (Auto) Nucleat RBC Rel Count Absolute Neuts (auto) Absolute Lymphs (auto) Absolute Monos (auto) Absolute Eos (auto) Absolute Basos (auto) Absolute Nucleated RBC Immature Gran % Immature Gran # PT INR POC Sodium 140 mEq/L mEq/L (135-145) Sodium POC Potassium 3.5 mEq/L mEq/L (3.3-5.0) Potassium POC Chloride 99 mEq/L mEq/L (97-110) Chloride Carbon Dioxide Anion Gap POC BUN 13 mg/dL mg/dL (7-23) BUN Creatinine POC Creatinine 0.7 mg/dL mg/dL (0.6-1.0) Estimated GFR Glucose POC Glucose 103 mg/dL H mg/dL (70-100) Calcium Magnesium Total Bilirubin Conjugated Bilirubin Unconjugated Bilirubin AST ALT Alkaline Phosphatase Troponin I Total Protein Albumin Lipase Stool Occult Bld Scrn POSITIVE H (NEGATIVE) H. pylori IgG Antibody NEGATIVE (NEG) 05/30/18 05/30/18 05/30/18 16:10 16:10 16:10 WBC 7.53 10^3/uL 10^3/uL (3.80-9.50) RBC 3.57 10^6/uL L 10^6/uL (4.18-5.33) Hgb 10.8 g/dL L g/dL (12.6-16.3) POC Hgb Hct 32.6 % L % (38.0-47.0) POC Hct MCV 91.3 fL fL (81.5-99.8) MCH 30.3 pg pg (27.9-34.1) MCHC 33.1 g/dL g/dL (32.4-36.7) RDW 18.2 % H % (11.5-15.2) Plt Count 563 10^3/uL H 10^3/uL (150-400) MPV 9.2 fL fL (8.7-11.7) Neut % (Auto) 57.9 % % (39.3-74.2) Lymph % (Auto) 30.5 % % (15.0-45.0) Humphreys % (Auto) 6.5 % % (4.5-13.0) Eos % (Auto) 3.6 % % (0.6-7.6) Baso % (Auto) 1.2 % % (0.3-1.7) Nucleat RBC Rel Count 0.0 % % (0.0-0.2) Absolute Neuts (auto) 4.36 10^3/uL 10^3/uL (1.70-6.50) Absolute Lymphs (auto) 2.30 10^3/uL 10^3/uL (1.00-3.00) Absolute Monos (auto) 0.49 10^3/uL 10^3/uL (0.30-0.80) Absolute Eos (auto) 0.27 10^3/uL 10^3/uL (0.03-0.40) Absolute Basos (auto) 0.09 10^3/uL 10^3/uL (0.02-0.10) Absolute Nucleated RBC 0.00 10^3/uL 10^3/uL (0-0.01) Immature Gran % 0.3 % % (0.0-1.1) Immature Gran # 0.02 10^3/uL 10^3/uL (0.00-0.10) PT 13.5 SEC SEC (12.0-15.0) INR 1.01 (0.83-1.16) POC Sodium Sodium 139 mEq/L mEq/L (135-145) POC Potassium Potassium 4.1 mEq/L mEq/L (3.3-5.0) POC Chloride Chloride 102 mEq/L mEq/L (97-110) Carbon Dioxide 29 mEq/l mEq/l (22-31) Anion Gap 8 mEq/L mEq/L (8-16) POC BUN BUN 15 mg/dL mg/dL (7-23) Creatinine 0.6 mg/dL mg/dL (0.6-1.0) POC Creatinine Estimated GFR > 60 Glucose 96 mg/dL mg/dL (70-100) POC Glucose Calcium 8.5 mg/dL mg/dL (8.5-10.4) Magnesium 1.9 mg/dL mg/dL (1.6-2.3) Total Bilirubin 0.5 mg/dL mg/dL (0.1-1.4) Conjugated Bilirubin 0.3 mg/dL mg/dL (0.0-0.5) Unconjugated Bilirubin 0.2 mg/dL mg/dL (0.0-1.1) AST 24 IU/L IU/L (14-46) ALT 19 IU/L IU/L (9-52) Alkaline Phosphatase 66 IU/L IU/L (38-126) Troponin I < 0.012 ng/mL ng/mL (0.000-0.034) Total Protein 6.7 g/dL g/dL (6.3-8.2) Albumin 3.5 g/dL g/dL (3.5-5.0) Lipase 27 IU/L IU/L (23-300) Stool Occult Bld Scrn H. pylori IgG Antibody Medications Given: Sodium Chloride (Ns) 1,000 mls @ 75 mls/hr IV CONT KERI Stop: 10/17/18 17:59 Last Admin: 04/20/18 18:18 Dose: 1,000 mls Discontinued Medications Sodium Chloride (Ns) 1,000 mls @ 0 mls/hr IV ONCE ONE; Wide Open PRN Reason: Protocol Stop: 04/20/18 16:23 Last Admin: 04/20/18 16:26 Dose: 1,000 mls Ondansetron HCl (Zofran) 4 mg IVP EDNOW ONE Stop: 04/20/18 17:24 Last Admin: 04/20/18 17:26 Dose: 4 mg Pantoprazole Sodium (Protonix) 40 mg IVP EDNOW ONE Stop: 04/20/18 16:24 Last Admin: 04/20/18 16:26 Dose: 40 mg Point of Care Test Results: 04/20/18 16:17 POC Sodium 140 POC Potassium 3.5 POC Chloride 99 POC BUN 13 POC Creatinine 0.7 POC Glucose 103 H General Time Seen by Provider: 04/20/18 15:33 Initial Vital Signs: Initial Vital Signs Temperature (C) 36.6 C 04/20/18 15:27 Heart Rate 77 04/20/18 15:27 Respiratory Rate 18 04/20/18 15:27 Blood Pressure 130/78 H 04/20/18 15:27 O2 Sat (%) 82 L 04/20/18 15:27 O2 Delivery Mode Nasal Cannula O2 (L/minute) 2 Allergies/Adverse Reactions: iodine [Iodine] Allergy (Severe, Verified 04/20/18 15:23) Anaphylaxis Iodinated Contrast- Oral and IV Dye [IV Dye, Iodine Containing Contrast ] Allergy (Unknown, Verified 04/20/18 15:23) Home Medications: Medication Instructions Recorded DULoxetine [Cymbalta 60 MG (*)] 120 mg PO DAILY 05/23/14 Simvastatin [Zocor 10 mg] 10 mg PO HS 05/23/14 Acetaminophen [Tylenol 325mg (*)] 325 - 650 mg PO Q6H PRN 04/05/17 Gabapentin [Neurontin 400 MG (*)] 800 mg PO HS 04/05/17 Levothyroxine [Synthroid 112 mcg 112 mcg PO DAILY06 04/05/17 (*)] clonazePAM [Klonopin (*)] 0.5 mg PO HS PRN 04/05/17 Cholecalciferol Vit D3 [Vitamin D3 1,000 units PO DAILY 05/02/17 (*)] Herbals/Supplements -Info Only 1 ea PO DAILY 05/02/17 fentaNYL [Duragesic 50 MCG Patch 50 mcg TD Q72H 04/20/18 (*)] Departure - Departure Disposition: [facility] Acute Clinical Impression: GI bleed Qualifiers: GI bleed type/associated pathology: melena Qualified Code(s): K92.1 - Melena Condition: Fair Report Scribed for: Veda Espinoza Report Scribed by: Rubina Hamilton Date of Report: 04/20/18 Time of Report: 15:41
[2018-04-20] MEDS ORDERED: NS 1,000 ML IV ONE (16:22)
[2018-04-20] MEDS ORDERED: PANTOPRAZOLE SODIUM 40 MG VIAL IVP ONE (16:23)
[2018-04-20 16:28] LABS: PLATELET COUNT 563 10^3/uL (150-400)
[2018-04-20 16:39] LABS: INR 1.01 (0.83-1.16); PROTIME(PATIENT) 13.5 SEC (12.0-15.0)
[2018-04-20] MEDS ORDERED: ONDANSETRON 4 MG/2 ML VIAL IVP ONE (17:23)
[2018-04-20] MEDS ORDERED: ONDANSETRON DISINTEGRATING 4 MG TAB PO PRN (17:32)
[2018-04-20] MEDS ORDERED: ONDANSETRON 4 MG/2 ML VIAL IVP PRN (17:32)
[2018-04-20] MEDS ORDERED: ACETAMINOPHEN 325 MG TAB PO PRN (17:32)
[2018-04-20] MEDS: NS 1,000 ML IV SCH (18:18)
--- NOTE | 2018-04-20 19:13 | GHP ---
[f rep st] HISTORY AND PHYSICAL DATE OF ADMISSION: 04/20/2018 CHIEF COMPLAINT: Melena. HISTORY OF PRESENT ILLNESS: A pleasant 82-year-old female with history of chronic back pain, chronic aspiration, and hypothyroidism, who was told to come to the ED for anemia and recent black stools. She had a CT scan on 04/12/2018, and then developed diarrhea for several days after that. It was very dark. She has not had a bowel movement since then. She does report achy central abdominal pain for the past week. She has been nauseated. No emesis. Has a chronic cough. Denies fevers, chills, or sweats. She had a colonoscopy over 20 years ago that was normal. She takes at least 2-3 Aleve nightly for arthritis. She has had a little bit of dizziness. No falls. No loss of consciousness. She is more pale per her . REVIEW OF SYSTEMS: I completed a 10-point review of systems, negative, except as noted in HPI. PAST MEDICAL HISTORY: 1. Chronic pain. 2. Anemia. 3. History of an empyema status post thoracotomy. 4. Hypothyroidism. 5. Chronic aspiration, chronic obstructive pulmonary disease. CT on 2017 showed acute pneumonitis in the right middle upper and lower lobes. Bronchiectasis. No empyema. PAST SURGICAL HISTORY: Thyroidectomy, thoracotomy for empyema, ureteral stents and back surgery. FAMILY HISTORY: Dad was healthy. SOCIAL HISTORY: Lives with her here in [place]. She has been a daily smoker for over 50 years. No alcohol or illicits. HOME MEDICATIONS: Aleve 200 mg 2-3 tablets daily, fentanyl patch 25 mcg, Klonopin 0.5 p.r.n., Zocor 10, levothyroxine 112 mcg daily, herbal supplement, Neurontin 800 mg at bedtime, Cymbalta 120 mg daily, vitamin D 1000 units daily, Tylenol. ALLERGIES: Iodine, contrast. PHYSICAL EXAMINATION: VITAL SIGNS: Temperature is 36.9, blood pressure 112/73 , heart rate is in 60s, respirations 18, 92 on 3 liters. GENERAL: She is fatigued, pale. HEENT: PERRLA. Conjunctival pallor. CV: Regular rate and rhythm. LUNGS: Diminished throughout bases. ABDOMEN: Mild epigastric tenderness. No rebound or guarding. Positive bowel sounds. : No [place]. MUSCULOSKELETAL: She is moving all 4 extremities. NEUROLOGIC: 2 through 12 intact. PSYCH: Alert and oriented x3. LABS: WBC 7, hemoglobin 10, hematocrit 32, platelets 563 (baseline H/H is 13/ 41.5). Sodium is 140, potassium 3.5, chloride 99, BUN 13, creatinine 0.9, glucose is 103. Troponin is less than 0.012. LFTs are within normal. ASSESSMENT AND PLAN: 1. Recent melena: suspect NSAID-related ulcer. No BMs in past week. Serial H/ H. IV Protonix, clears tonight, n.p.o. for possible scope. GI consulted by ER. Hemodynamically stable. 2. Chronic pain: Fentanyl patch. 3. Hypothyroidism: Resume Synthroid when taking p.o. 4. History of chronic aspiration: She had a CT on 04/12/2018 that showed pneumonitis. She denies any infectious symptoms. We will not treat with antibiotics. 5. COPD: Recommended cessation of cigarettes. No evidence of exacerbation. 6. Diet: Clears now, n.p.o. after midnight. 7. DVT prophylaxis: SCDs in the setting of melena. DISPOSITION: Patient warrants observation admission given the concern for ulcer , warranting GI evaluation, possible endoscopy. /[id number]/MODL MTDD
[2018-04-20] MEDS ORDERED: clonazePAM 0.5 MG TAB PO PRN (21:42)
[2018-04-21] MEDS: NS 1,000 ML IV SCH (08:04)
--- NOTE | 2018-04-21 08:18 | HOSPPROG ---
Hospitalist Progress Note Assessment/Plan: Patient is an 82-year-old female with a history of chronic back pain, chronic aspiration hypothyroidism. She was instructed by her primary care doctor to come to the emergency room for further workup in regards to anemia and recent black stools. She takes 2-3 Aleve nightly for thrive this. Today is my 1st encounter with the patient. Chart reviewed. * melena -on a PPI now -s/p EGD, has gastric ulcers -reviewed her care w Dr Gomes -repeat EGD in a few months * chronic pain -fentanyl patch resumed -recommendation is no further NSAIDs * history of chronic aspiration -on a CT in March of 2018 it showed pneumonitis * COPD - smoking cessation recommended *Plan: monitor her Hgb and hct and if stable, home later today or tomorrow morning Subjective: Char is feeling relieved the procedure is over. Objective: Vital Signs Temp Pulse Resp BP Pulse Ox 36.6 C 58 L 12 118/65 96 04/21/18 07:23 04/21/18 07:23 04/21/18 07:23 04/21/18 07:23 04/21/18 07:23 Laboratory Results 04/21/18 04:52 PT 13.5 SEC (12.0-15.0) 04/20/18 16:10 INR 1.01 (0.83-1.16) 04/20/18 16:10 - Physical Exam Constitutional: no apparent distress, appears nourished, not in pain Eyes: PERRL Ears, Nose, Mouth, Throat: hearing normal Cardiovascular: regular rate and rhythym Respiratory: no respiratory distress Gastrointestinal: normoactive bowel sounds Skin: warm, No normal color (pale) Musculoskeletal: full muscle strength Neurologic: AAOx3 Psychiatric: interacting appropriately ICD10 Worksheet Patient Problems: Problems Problem Status Onset GI bleed Acute Chronic obstructive lung disease Active Clostridium difficile infection Active Pneumonia Active ideopathic retroperitoneal fibrosis Active Chronic Disease Mgmt/Transitional Care Acute Chronic pain Acute Community acquired pneumonia Acute Contusion of hip, left Acute Empyema Acute Fall Acute Headache Acute Left hip pain Acute Sepsis Acute UTI (urinary tract infection) Acute Weakness Acute
[2018-04-21] MEDS ORDERED: PANTOPRAZOLE SODIUM 40 MG VIAL IVP SCH (09:00)
--- NOTE | 2018-04-21 09:00 | PDANEPAE ---
ANE Past Medical History - Pulmonary History Hx Oxygen in Use at Home: Yes O2 in Use at Home (L/minute): 2 Hx Sleep Apnea: No Sleep Apnea Screening Result - Last Documented: Negative - Endocrine History Hx Diabetes: No - Chronic Pain History Chronic Pain: Yes ANE Review of Systems Review of Systems: ANE Patient History - Allergies Allergies/Adverse Reactions: iodine [Iodine] Allergy (Severe, Verified 04/20/18 15:23) Anaphylaxis Iodinated Contrast- Oral and IV Dye [IV Dye, Iodine Containing Contrast ] Allergy (Unknown, Verified 04/20/18 15:23) - Home Medications Home Medications: DULoxetine [Cymbalta 60 MG (*)] 120 mg PO DAILY 05/23/14 [Last Taken 3 Days Ago ~04/17/18] Simvastatin [Zocor 10 mg] 10 mg PO HS 05/23/14 [Last Taken 04/17/18] Acetaminophen [Tylenol 325mg (*)] 325 - 650 mg PO Q6H PRN 04/05/17 [Last Taken 3 Days Ago ~04/17/18] Gabapentin [Neurontin 400 MG (*)] 800 mg PO HS 04/05/17 [Last Taken 3 Days Ago ~ 04/17/18] Levothyroxine [Synthroid 112 mcg (*)] 112 mcg PO DAILY06 04/05/17 [Last Taken ] clonazePAM [Klonopin (*)] 0.5 mg PO HS PRN 04/05/17 [Last Taken 04/19/18] Cholecalciferol Vit D3 [Vitamin D3 (*)] 1,000 units PO DAILY 05/02/17 [Last Taken 3 Days Ago ~04/17/18] Herbals/Supplements -Info Only 1 ea PO DAILY 05/02/17 [Last Taken 04/17/18] fentaNYL [Duragesic 50 MCG Patch (*)] 50 mcg TD Q72H 04/20/18 [Last Taken ] - NPO status NPO Since - Liquids (Date): 04/21/18 NPO Since - Liquids (Time): 00:00 NPO Since - Solids (Date): 04/21/18 NPO Since - Solids (Time): 00:00 - Smoking Hx Smoking Status: Current every day smoker ANE Labs/Vital Signs - Labs Result Diagrams: 04/21/18 04:52 04/20/18 16:10 - Vital Signs Blood Pressure: 118/65 Heart Rate: 58 Respiratory Rate: 12 O2 Sat (%): 96 Height: 165.1 cm Weight: 58.513 kg
[2018-04-21] MEDS ORDERED: LR 1,000 ML IV ONE (09:02)
--- NOTE | 2018-04-21 09:20 | PDANEPAE ---
ANE History of Present Illness hx dark stools ANE Past Medical History - Cardiovascular History Hx Hypertension: No Hx Arrhythmias: No Hx Chest Pain: No Hx Coronary Artery / Peripheral Vascular Disease: No Hx CHF / Valvular Disease: No Hx Palpitations: No - Pulmonary History Hx COPD: Yes Hx Asthma/Reactive Airway Disease: No Hx Recent Upper Respiratory Infection: No Hx Oxygen in Use at Home: Yes O2 in Use at Home (L/minute): 2 Hx Sleep Apnea: No Sleep Apnea Screening Result - Last Documented: Negative - Neurologic History Hx Cerebrovascular Accident: No Hx Seizures: No Hx Dementia: No - Endocrine History Hx Diabetes: No Hypothyroid: Yes Hyperthyroid: No Obesity: no - Renal History Hx Renal Disorders: No - Liver History Hx Hepatic Disorders: No - Neurological & Psychiatric Hx Hx Neurological and Psychiatric Disorders: No - Chronic Pain History Chronic Pain: Yes ANE Review of Systems Review of Systems: - Exercise capacity Exercise capacity: <4 METS - Systems Constitutional: Reports: malaise, weakness ANE Patient History - Allergies Allergies/Adverse Reactions: iodine [Iodine] Allergy (Severe, Verified 04/20/18 15:23) Anaphylaxis Iodinated Contrast- Oral and IV Dye [IV Dye, Iodine Containing Contrast ] Allergy (Unknown, Verified 04/20/18 15:23) - Home Medications Home Medications: DULoxetine [Cymbalta 60 MG (*)] 120 mg PO DAILY 05/23/14 [Last Taken 3 Days Ago ~04/17/18] Simvastatin [Zocor 10 mg] 10 mg PO HS 05/23/14 [Last Taken 04/17/18] Acetaminophen [Tylenol 325mg (*)] 325 - 650 mg PO Q6H PRN 04/05/17 [Last Taken 3 Days Ago ~04/17/18] Gabapentin [Neurontin 400 MG (*)] 800 mg PO HS 04/05/17 [Last Taken 3 Days Ago ~ 04/17/18] Levothyroxine [Synthroid 112 mcg (*)] 112 mcg PO DAILY06 04/05/17 [Last Taken ] clonazePAM [Klonopin (*)] 0.5 mg PO HS PRN 04/05/17 [Last Taken 04/19/18] Cholecalciferol Vit D3 [Vitamin D3 (*)] 1,000 units PO DAILY 05/02/17 [Last Taken 3 Days Ago ~04/17/18] Herbals/Supplements -Info Only 1 ea PO DAILY 05/02/17 [Last Taken 04/17/18] fentaNYL [Duragesic 50 MCG Patch (*)] 50 mcg TD Q72H 04/20/18 [Last Taken ] - NPO status NPO Status: no food or drink >8 hours NPO Since - Liquids (Date): 04/21/18 NPO Since - Liquids (Time): 00:00 NPO Since - Solids (Date): 04/21/18 NPO Since - Solids (Time): 00:00 - Smoking Hx Smoking Status: Current every day smoker ANE Labs/Vital Signs - Labs Result Diagrams: 04/21/18 04:52 04/20/18 16:10 - Vital Signs Vital Signs: reviewed preoperatively; see RN documention for details Blood Pressure: 118/65 Heart Rate: 58 Respiratory Rate: 12 O2 Sat (%): 96 Height: 165.1 cm Weight: 58.513 kg ANE Physical Exam - Airway Neck exam: decreased ROM Mouth exam: dentures - Pulmonary Pulmonary: no respiratory distress - Cardiovascular Cardiovascular: regular rate and rhythym - ASA Status ASA Status: III
[2018-04-21] MEDS ORDERED: LIDOCAINE 2% 5 ML SDV ONE (09:34)
[2018-04-21] MEDS ORDERED: PROPOFOL/EMULSION 500 MG/50 ML BOTTLE IV ONE (09:34)
[2018-04-21] MEDS ORDERED: EPINEPHrine 1 MG/10 ML SYR IVP ONE (09:41)
--- NOTE | 2018-04-21 09:52 | GIREPORT ---
[facility] Surgical Services - Endoscopy Department Patient Name: Char Watt Procedure Date: 04/21/2018 9:16 AM Patient Type: Inpatient Attending MD/ ER Physician: Rylie Gomes MD Procedure: Upper GI endoscopy Indications: Melena Providers: Rylie Gomes MD Medicines: Monitored Anesthesia Care Complications: No immediate complications. Description of Procedure: After obtaining informed consent, the endoscope was passed under direct vision. Throughout the procedure, the patient's blood pressure, pulse, and oxygen saturations were monitored continuously. The Endoscope was intro duced through the mouth, and advanced to the second part of duodenum. [facility] er GI endoscopy was accomplished without difficulty. The patient tolerated th e procedure well. Findings: LA Grade B (one or more mucosal breaks greater than 5 mm, not extending between the tops of two mucosal folds) esophagitis with no bleeding was found at the gastroesophageal junction. Two non-bleeding cratered gastric ulcers with no stigmata of bleeding w ere found in the gastric antrum. The largest lesion was 6 mm in largest dimension. Biopsies were taken with a cold forceps for histology. Estim ated blood loss was minimal. The examined duodenum was normal. Estimated Blood Loss: Estimated blood loss was minimal. Post Op Diagnosis: - LA Grade B reflux esophagitis. - Non-bleeding gastric ulcers with no stigmata of bleeding. Biopsied. N o active bleeding low risk for rebleed. - Normal examined duodenum. Recommendation: - Await pathology results. - Clear liquid diet. - Use a proton pump inhibitor PO daily for 12 weeks. - OK to D/C home when H+H stable. - No NSAIDS except cardiac ASA OK. - Follow up in office in 3 months to consider repeat upper endoscopy to check healing. - [facility]. - Will sign off. - Thank you for allowing me to participate in the care of your patient. Attending Participation: I personally performed the entire procedure. Rylie Gomes MD Rylie Gomes MD 04/21/2018 9:51:52 AM This report has been signed electronicallyRylie Gomes MD Number of Addenda: 0 Note Initiated On: 04/21/2018 9:16 AM [email or web address]
[2018-04-21] MEDS ORDERED: ONDANSETRON 4 MG/2 ML VIAL IVP PRN (09:57)
[2018-04-21] MEDS ORDERED: ACETAMINOPHEN 500 MG TAB PO PRN (09:57)
[2018-04-21] MEDS ORDERED: NALOXONE HCL 0.4 MG/ML INJ IVP PRN (09:57)
[2018-04-21] MEDS ORDERED: ALBUTEROL 3 ML DEYVIAL IH PRN (09:57)
--- NOTE | 2018-04-21 09:57 | POSTANESTH ---
Post Anesthetic Evaluation Cardiovascular Status: Normal, Stable Respiratory Status: Normal, Stable Level of Consciousness/Mental Status: Mildly Sleepy, Arousable Pain Control: Adequate, Prn Tx Ordered Nausea/Vomiting Control: Adequate, Prn Tx Ordered Complications Possibly Related to Anesthesia: None Noted
--- NOTE | 2018-04-21 11:10 | GCON ---
[f rep st] CONSULTATION DATE OF CONSULTATION: 04/21/2018 REFERRING PHYSICIAN: Vickie Lilly MD CHIEF COMPLAINT: Melena. REASON FOR CONSULTATION: I am asked to see the patient in consultation by Dr. Lilly for chief compl aint of melena. HISTORY OF PRESENT ILLNESS: The patient is an 82-year-old who noted melena for the past 2 days she d escribes as dark black stools. Has no prior history of GI bleeding or known peptic ulcer disease. D enies taking Pepto-Bismol, but has been taking NSAIDs, including Aleve. Did note some diffuse abdomi nal discomfort and nausea, and overall feeling of being unwell. Was seen by PCP who noted decreased hematocrit and sent her to the emergency room. She has had no hematemesis, although she has had some chronic cough. She states she has had a colonoscopy maybe 20 years ago that was normal at that time . ALLERGIES: Iodine contrast. MEDICATIONS: Aleve she takes 2-3 tabs daily, fentanyl patch, Klonopin, Zocor, Levaquin, herbal suppl ements, Neurontin, Cymbalta. PAST MEDICAL HISTORY: Chronic pain, history of empyema, status post thoracotomy, hypothyroidism, his tory of chronic aspiration with COPD with recent pneumonitis. SOCIAL HISTORY: Denies alcohol use. FAMILY HISTORY: Negative for colon cancer or ulcers in the family. REVIEW OF SYSTEMS: I performed a complete review of systems, which was negative, except for the pert inent positives and negatives as noted above in HPI. PHYSICAL EXAMINATION: VITAL SIGNS: Afebrile at 36.9, BP 118/65, pulse is 58. CONSTITUTIONAL: Patie nt is alert and oriented. HEENT: Eyes: No scleral icterus. ENT: No oral lesions. CARDIOVASCULAR : Regular rhythm. CHEST: Clear to auscultation. ABDOMEN: Positive bowel sounds. Soft, nontender . NEUROLOGIC: Nonfocal. SKIN: No lesions. LABORATORY DATA: On admission, hemoglobin was 10, this morning is 9.3 with hematocrit of 28.6, plate lets are normal. Pro time normal. BUN creatinine are 16 and 0.6. ASSESSMENT: Patient with melena with high-dose nonsteroidal anti-inflammatory drug use and epigastri c abdominal pain concerning for gastrointestinal bleed. Most likely, this represents an upper gastro intestinal bleed, although her BUN is not elevated. This could suggest that this is either early or minor bleed. It is possible it could be a lower colonic source; however, given the likelihood of an ulcer, I would recommend we begin with an upper endoscopy for evaluation. I discussed with the patie nt including the risks, benefits, alternatives, and she agrees to proceed with upper endoscopy. Over all, she would be high risk because of her lung disease and chronic pain medicines, and I will ask fo r the assistance of Anesthesia. PLAN: Recommend upper endoscopy today with anesthesia for evaluation of possible peptic ulcer or tee rce of upper GI bleeding. If the upper exam is normal, we may need to give consideration to a colono scopy. Agree with PPI. Thank you for this consult. /[id number]/MODL
[2018-04-21 11:33] VITALS: BP 112/64
[2018-04-21] MEDS ORDERED: DULoxetine 60 MG CAP PO SCH (12:45)
--- NOTE | 2018-04-21 15:27 | GDS ---
[f rep st] DISCHARGE SUMMARY DISCHARGE DIAGNOSES: 1. Melena. 2. Chronic pain. 3. History of chronic aspiration. 4. Chronic obstructive pulmonary disease. CONSULTATION: Dr. Rylie Gomes. HISTORY: Briefly, the patient is an 82-year-old female with a history of chronic pain, chronic aspir ation, and hypothyroidism. Her primary care noted that she had anemia and also recent black stools. She takes 2-3 Aleve nightly for pain. She was seen and evaluated by Dr. Gomes today. She had a n EGD performed earlier today. This noted that she had nonbleeding gastric ulcers, with no stigmata of bleeding. She had biopsies, and it was noted that she was low risk for a rebleed. Her duodenum l ooked normal. She will be discharged today. Recommendation is a PPI daily for 12 weeks and to follo w up in 3 months, to consider repeat upper endoscopy to check healing. HOSPITAL COURSE: 1. Melena with noted gastric ulcers. Will keep her on a PPI for 12 weeks. Reviewed with her and he r the importance of no NSAID use and to try to cut back on her smoking, both likely contribut ing to this. 2. Chronic pain. She is on a fentanyl patch. 3. History of chronic aspiration. She had a CT in March of 2018, which showed pneumonitis. 4. COPD. Smoking cessation has been recommended. Per her , she smokes to keep her weight do wn. Her goal is to try to cut back on smoking. DISCHARGE CONDITION: Stable. Blood pressure is 112/64, heart rate 56. Respiratory rate is 16. O2 sats on room air are 90%; on 3 L, are 96%. Temperature is 36.4 Celsius. DISCHARGE MEDICATIONS: Please see the EMR. DISCHARGE INSTRUCTIONS: 1. Take Protonix daily for the next 12 weeks. 2. Follow up with Dr. Gomes about the biopsies and to discuss another EGD in 3 months. 3. Get her hemoglobin and hematocrit checked on Wednesday, April 25, to assure her labs are stable. 4. No NSAIDs. /[id number]/MODL
[2018-04-21] MEDS ORDERED: GABAPENTIN 400 MG CAP PO SCH (21:00)
[2018-04-22] MEDS ORDERED: LEVOTHYROXINE 112 MCG TAB PO SCH (06:00)
== END 2018-04-21 14:52 | disposition home or self-care (01) ==
LOC: F3E 18:15
PROVIDERS: ADMIT Internal Medicine; ATTEND Internal Medicine
PROC: 0DB68ZX Excision of Stomach, Via Natural or Artificial Opening Endoscopic, Diagnostic (ICD-10-PCS; principal; 2018-04-20)
DX: K29.51 Unspecified chronic gastritis with bleeding (principal); K92.1 Melena; G89.29 Other chronic pain; J44.9 Chronic obstructive pulmonary disease, unspecified; E03.9 Hypothyroidism, unspecified; Z99.81 Dependence on supplemental oxygen
CPT/HCPCS: 43239; G0378; J2405; J2704; 82947-QW

== ENCOUNTER → 2018-06-01 | Outpatient (CLI) | payer OTHER, BC | LOC: BMCIMAGING 10:21 | PROVIDERS: ATTEND Orthopaedic Surgery | DX: M23.8X2 Other internal derangements of left knee (principal) ==

== ENCOUNTER → 2018-08-26 | Outpatient (CLI) | payer OTHER, BC | LOC: FIMAGING 14:19 | PROVIDERS: ATTEND Orthopaedic Surgery | DX: Z01.818 Encounter for other preprocedural examination (principal); M17.12 Unilateral primary osteoarthritis, left knee ==

== ENCOUNTER → 2018-09-08 | Outpatient (CLI) | payer OTHER, BC ==
[~2018-09-08] MED LIST changes: +IOPAMIDOL (ISOVUE 370) 100 ML BTL IV ONE; -IOPAMIDOL (ISOVUE-300) 100 ML BTL ONE; +methylPREDNISolone SOD SUCC 125 MG/2 ML VIAL ONE
== END ==
LOC: FIMAGING 08:23
DX: Z01.810 Encounter for preprocedural cardiovascular examination (principal); R94.31 Abnormal electrocardiogram [ECG] [EKG]
CPT/HCPCS: 82565-PO; J1200; J2930; Q9967

== ENCOUNTER → 2018-09-09 | Outpatient (CLI) | payer OTHER, BC ==
[~2018-09-09] MED LIST changes: -IOPAMIDOL (ISOVUE 370) 100 ML BTL IV ONE; +METOPROLOL TARTRATE 5 MG/5 ML INJ ONE; -methylPREDNISolone SOD SUCC 125 MG/2 ML VIAL ONE
== END ==
LOC: FIMAGING 13:34
PROVIDERS: ATTEND Orthopaedic Surgery
DX: Z01.818 Encounter for other preprocedural examination (principal); R91.8 Other nonspecific abnormal finding of lung field; N26.1 Atrophy of kidney (terminal); I77.810 Thoracic aortic ectasia